=== PATIENT | female | born 1955 | race Caucasian/White ===

== ENCOUNTER 2021-04-17 01:33 | Day surgery (SDC) | payer MEDICARE, SELFPAY ==
[2021-04-09 14:40] VITALS: BMI 23.1
[2021-04-17 08:28] VITALS: BP 161/77; PULSE 84; RESP 16; TEMP 36.1; O2SAT 100; BMI 22.6
[2021-04-17] MEDS: LACTATED RINGERS 1,000 ML 150 ML IV CONT (08:44)
[2021-04-17 08:46] LABS: Glucose Point of Care 166 mg/dl (65-105)
--- NOTE | 2021-04-17 09:00 | P.CONGI_ITS ---
Assessment and Plan Assessment and plan (1) Encounter for screening colonoscopy: Code(s): Z12.11 - Encounter for screening for malignant neoplasm of colon Status: Acute Assessment and Plan: Patient presents for screening colonoscopy. Appears to be at average risk for colon polyps. GI Consult Note Consult date/time: 04/17/21 09:00 HPI: Maribeth Tavarez is a 65 year old female Presents for screening colonoscopy. Patient reports that she had an exam that was unremarkable 10 years ago. She reports that her current weight appetite bowel movements are normal. Patient denies abdominal pain. She has had no bleeding. Family history is noncontributory. She presents today for neoplasia screening. Review of Systems Review of Systems: All systems reviewed & are unremarkable except as noted in HPI and below PMFSH Social History Social History Smoking packs per day: 1 Smoking cigarettes per day: 20.0 Years smoked: 35 Smoking pack-years: 35.00 Smoking status: Former smoker Tobacco type: cigarettes Alcohol intake: current Substance use: never Substance use type: does not use Living arrangements: with family Spiritual care concerns: No Meds Home Medications and Allergies Home Medications Medication Instructions Recorded Confirmed Type alprazolam 0.25 mg PO BID PRN 04/09/21 04/17/21 History ascorbic acid (vitamin C) 1 g PO DAILY 04/09/21 04/17/21 History atorvastatin 20 mg PO DAILY 04/09/21 04/17/21 History calcium carb-mag ox-zinc gluc 1 tab-cap PO DAILY 04/09/21 04/17/21 History calcium carbonate [Calcium 600] 600 mg PO DAILY 04/09/21 04/17/21 History diclofenac sodium 50 mg PO DAILY 04/09/21 04/17/21 History metformin 500 mg PO DAILY 04/09/21 04/17/21 History multivitamin,kq-ncbm-pxhjofcm 1 tablet PO DAILY 04/09/21 04/17/21 History [Complete Multivitamin] potassium 99 mg PO DAILY 04/09/21 04/17/21 History vitamin B complex [Vitamin B-50 1 tablet PO 3XW 04/09/21 04/17/21 History Complex] Allergies Allergy/AdvReac Type Severity Reaction Status Date / Time No Known Allergies Allergy Verified 04/17/21 08:36 Vital Signs Vital Signs - 24 hr 04/17/21 08:28 Temperature 96.9 F L Pulse Rate 84 Respiratory Rate 16 Blood Pressure 161/77 H Pulse Oximetry 100 Exam Narrative: Physical exam reveals patient to be alert. Vital signs are stable. HEENT exam is unremarkable. Patient is anicteric. Lungs are clear to auscultation and percussion. Heart is without murmur or extra sounds. Abdomin al exam bowel sounds are present soft nontender with no organomegaly. Digital external rectal exam is normal.
--- NOTE | 2021-04-17 09:09 | WPDANESEPPF ---
Anes - Initial Pre Proc Eval Procedure: Operation Date: 04/17/21 09:30 Proposed Procedures p Screening Colonoscopy - Eron Mccarty MD Date/Time: 04/17/21 09:09 Surgeon: Eron Mccarty MD Pre Op Diagnosis: neoplasm screening Patient Data Age: 65 Gender: F Height: 1.5 m Weight: 50.8 kg Last Vital Signs Temp 96.9 F L 04/17/21 08:28 Pulse 84 04/17/21 08:28 Resp 16 04/17/21 08:28 BP 161/77 H 04/17/21 08:28 Pulse Ox 100 04/17/21 08:28 Allergies Allergy/AdvReac Type Severity Reaction Status Date / Time No Known Allergies Allergy Verified 04/17/21 08:36 Home Medications Medication Instructions Recorded Confirmed Type alprazolam 0.25 mg PO BID PRN 04/09/21 04/17/21 History ascorbic acid (vitamin C) 1 g PO DAILY 04/09/21 04/17/21 History atorvastatin 20 mg PO DAILY 04/09/21 04/17/21 History calcium carb-mag ox-zinc gluc 1 tab-cap PO DAILY 04/09/21 04/17/21 History calcium carbonate [Calcium 600] 600 mg PO DAILY 04/09/21 04/17/21 History diclofenac sodium 50 mg PO DAILY 04/09/21 04/17/21 History metformin 500 mg PO DAILY 04/09/21 04/17/21 History multivitamin,bj-babv-sdiwhkma 1 tablet PO DAILY 04/09/21 04/17/21 History [Complete Multivitamin] potassium 99 mg PO DAILY 04/09/21 04/17/21 History vitamin B complex [Vitamin B-50 1 tablet PO 3XW 04/09/21 04/17/21 History Complex] Laboratory Tests 04/17/21 08:40 POC Capillary Glucose 166 mg/dl H mg/dl (65-105) Patient hx anesthesia problems: none Family hx anesthesia problems: none PMFSH Past Medical History Medical History (Updated 04/17/21 @ 09:10 by Chan Womack MD) Diabetes Hyperlipidemia Social History Social History Smoking packs per day: 1 Smoking cigarettes per day: 20.0 Years smoked: 35 Smoking pack-years: 35.00 Smoking status: Former smoker Tobacco type: cigarettes Alcohol intake: current Substance use: never Substance use type: does not use Living arrangements: with family Spiritual care concerns: No Anes - Eval Final PreProcedure Day of Procedure 04/17/21 09:09 Patient weight: normal Heart: regular rate and rhythm Lungs: clear to auscultation Airway: Mallampati scale class II Neurological: alert and oriented Last oral intake: >/= 8 hours ASA classification: III Emergent: no Anesthesia type and monitoring: general GIVS and standard monitoring Informed Consent: The patient's anesthetic plan and its attendant risks and benefits were discussed with the patient/family/POA. Questions were solicited and answers provided to the satisfaction of the patient/family/POA.
[2021-04-17 09:39] VITALS: BP 97/60; PULSE 71; RESP 18; O2SAT 98
[2021-04-17 09:49] VITALS: BP 104/63; PULSE 70; RESP 16; O2SAT 98
[2021-04-17 09:59] VITALS: BP 126/79; PULSE 70; RESP 17; O2SAT 98
== END 2021-04-17 10:10 | disposition home or self-care (01) ==
PROVIDERS: PCP Internal Medicine; Visit Provider Internal Medicine Gastroenterology
PROC: 0DJD8ZZ Inspection of Lower Intestinal Tract, Via Natural or Artificial Opening Endoscopic (ICD-10-PCS; CPT 45378; principal; 2021-04-17 09:30)
DX: Z12.11 Encounter for screening for malignant neoplasm of colon (principal); K57.30 Diverticulosis of large intestine without perforation or abscess without bleeding; K64.8 Other hemorrhoids; E11.9 Type 2 diabetes mellitus without complications; E78.5 Hyperlipidemia, unspecified; Z87.891 Personal history of nicotine dependence
CPT/HCPCS: G0121; 82948; J2704; J7120

== ENCOUNTER 2023-10-05 10:11 | Outpatient (CLI) | payer MEDICARE, OTHER, SELFPAY ==
--- NOTE | 2023-10-05 10:25 | ECG_ITS ---
Measurements Intervals [place] Rate: 97 P: 44 OK: 167 QRS: 13 QRSD: 68 T: 32 QT: 322 QTc: 410 Interpretive Statements SINUS RHYTHM POSSIBLE LEFT ATRIAL ENLARGEMENT [-0.1mV P WAVE IN V1/V2] POSSIBLE ANTERIOR MYOCARDIAL INFARCTION [30 ms Q WAVE IN V3/V4, OR R < 0.2 mV IN V4], PROBABLY OLD ABNORMAL ECG NO PREVIOUS ECG AVAILABLE FOR COMPARISON Electronically Signed On 10-05-2023 11:54:41 [employer] by Rohan Shahid M.D.
[2023-10-05 10:56] LABS: Anion Gap 7 mmol/L (8-16); Blood Urea Nitrogen 17 mg/dL (7-17); Calcium 9.8 mg/dL (8.4-10.2); Carbon Dioxide 28 mmol/L (22-30); Chloride 99 mmol/L (98-107); Estimated Glomerular Filt Rate > 60; Glucose 265 mg/dL (65-110); Sodium 134 mmol/L (137-145)
== END 2023-10-05 10:12 | disposition home or self-care (01) ==
LOC: ANHSURGERY 10:15
PROVIDERS: Anesthesiology; PCP Nurse Practitioner Family; Visit Provider Orthopaedic Surgery
DX: E11.9 Type 2 diabetes mellitus without complications (principal); I10 Essential (primary) hypertension; Z01.818 Encounter for other preprocedural examination
CPT/HCPCS: 36415; 80048; 93005

== ENCOUNTER 2023-10-10 00:51 | Day surgery (SDC) | payer MEDICARE, OTHER, SELFPAY ==
--- NOTE | 2023-09-26 13:27 | PC.NURSE ---
Report to the Outpatient Waiting Room, entrance under the green pavilion located off [facility], at time __0800 on date _10/10/23 . Planned Procedure Time: ___1000 . Time changes happen often and if your time is changed the preop area will call you the afternoon before. - You and your visitor will be asked to self-screen and do not enter if you have any COVID symptoms. - A mask is optional within the hospital at this time. Patients may have clear liquids (water, carbonated beverages, clear teas, apple juice) until 3 hours prior to surgery(7 :00 AM ) with a maximum of 20 ounces. - No food from midnight until time of surgery - Infants may have breast milk until 4 hours before surgery, infant formula 6 hours prior to surgery. - Children will be allowed to drink immediately following surgery. If applicable, please bring a bottle or sippy cup to assist with drinking. Juice, water, soda, and popsicles are readily available. For infants on formula, please bring formula the day of surgery. Pacifiers are allowed. Take the following medications with a SIP of water the morning of surgery: __ALPRAZOLAM DO NOT STOP ANY OF YOUR OTHER PRESCRIPTION MEDICATIONS PRIOR TO SURGERY ?EXCEPT THE FOLLOWING Medications to discontinue per physician _ASPIRIN PER DR DAIGLE. HOLD DICLOFENAC 7 DAYS PRE OP PER DR DAIGLE.LAST DOSE 10/02/23. HOLD ALL VITAMINS AND SUPPLEMENTS 3 DAYS PRE OP .LAST DOSE 10/06/23 MAY TAKE TYLENOL IF NEEDED FOR PAIN Please no make-up, nail armenian, hairspray, perfume, deodorant, or body powder the day of surgery. No jewelry (including any body piercings) or valuables the day of surgery, leave them at home. Please take a shower or bath the night before, or the morning of, surgery with an antibacterial soap. Wear comfortable, loose fitting clothing. Children are encouraged to wear pajamas. - Jewelry must be removed prior to entering the operating room. Rings and piercings that are not removed may be cut off. - The hospital will not accept responsibility for valuables. - Please leave all valuables, including medications, at home the day of surgery. If you are going home after surgery, a licensed over the road driver must drive you home. - NO public transportation without another adult if you receive anesthesia. - We recommend that an adult stay with you for 24 hours following discharge. - We also recommend that you do not drive, make important decision, drink alcoholic beverages, or take any drugs that were not prescribed by your health care provider for at least 24 hours after your dischargE Follow any additional instructions given to you from your surgeon. If you or anyone in your household have experienced Covid symptoms in the past week, please notify your surgeon or the nurse liaison at the phone number below for possible testing. Telephone instructions given to __PATIENT and asked if any additional questions and then verbalized understanding. Patient advised to call surgeon office or pre surgery nurse liaison [phone] if any additional questions.
[2023-09-26 13:37] VITALS: BMI 23.8
--- NOTE | 2023-10-07 12:41 | PM.IMHP ---
H&P: HPI History of Present Illness Date/Time: 10/07/23 12:41 Chief Complaint: right index trigger finger Narrative: 68-year-old female presents today for right index A1 татьяна release. Patient has been having triggering in the right index finger that started last year. She had 1 cortisone injection in mid 2022. At that time that was her 2nd injection. She has had recurrence of the triggering in the index finger at this point was recommended that we proceed with surgery rather than continue with injections. Multiple injections can soften the tendon and cause tendon rupture. Patient wished to proceed with surgery and presents today for that. Review of Systems Review of Systems: All systems reviewed & are unremarkable except as noted in HPI and below PMFSH Past Medical History Medical History ) Acute UTI Anxiety disorder, unspecified Carotid bruit Diabetes Essential (primary) hypertension (09/09/16) Hyperlipidemia Murmur, cardiac Osteoporosis Surgical History Surgical History ) No pertinent past surgical history Family History Family History ) Mother No problems noted. Father No problems noted. Social History Social History ) Smoking packs per day: 1 Smoking cigarettes per day: 20.0 Years smoked: 35 Smoking pack-years: 35.00 Smoking status: Former smoker Tobacco type: cigarettes Smoking end date: 08/22/18 Alcohol intake: current Substance use: never Substance use type: does not use Do You Feel Safe in your Home?: No Lack of Transportation: No Lack of Food: Never True Current Housing: I Have Housing Concerned About Future Housing: No Difficulty Paying Gas/Electric Bills: No Difficulty Paying for Meds: No Currently Unemployed: No Difficulty w/ Childcare or Family Care: No Living arrangements: with family Spiritual care concerns: No Meds Home Medications and Allergies Home Medications Medication Instructions Recorded Confirmed Type ascorbic acid (vitamin C) 1,000 mg 1 g PO DAILY 04/09/21 09/26/23 History tablet calcium carbonate 600 mg calcium 600 mg PO DAILY 04/09/21 09/26/23 History (1,500 mg) tablet (Calcium) diclofenac sodium 50 mg 50 mg PO DAILY 04/09/21 09/26/23 History tablet,delayed release multivitamin,yx-pjpg-vspljwtz 1 tablet PO DAILY 04/09/21 09/26/23 History vitamin B complex 1 tablet PO 3XW 04/09/21 09/26/23 History losartan 25 mg tablet 25 mg PO DAILY 07/26/22 09/26/23 History lancets 33 gauge #100 ea 04/01/23 09/26/23 Rx atorvastatin 20 mg tablet 20 mg PO QHS #90 tabs 06/01/23 09/26/23 Rx blood sugar diagnostic (OneTouch #100 strips 07/29/23 09/26/23 Rx Ultra Test strips) aspirin 81 mg tablet,delayed 81 mg PO HS 09/26/23 09/26/23 History release (Adult Low Dose Aspirin) omega-3 fatty acids 1,000 mg PO DAILY 09/26/23 09/26/23 History alprazolam 0.25 mg tablet 0.25 mg PO BID PRN Anxiety #60 tabs 09/28/23 Rx metformin 500 mg tablet,extended 500 mg PO BID #180 tabs 09/30/23 Rx release 24 hr Allergies Allergy/AdvReac Type Severity Reaction Status Date / Time cefonicid [From Monocid] AdvReac Unknown Hives Verified 09/26/23 13:18 Robitet AdvReac Unknown Hives Uncoded 09/26/23 13:18 Exam Narrative: 5-year-old female alert pleasant. She has full range of motion of the right index finger. She has active triggering with range of motion. Moderate tenderness over the A1 татьяна. No numbness or tingling in the fingers. 2+ radial pulse. Resp: Auscultation: clear to auscultation bilaterally Cardio: Rate: regular rate Rhythm: regular rhythm Assessment and Plan Assessment and plan (1) Trigger finger: Code(s): M65.30 - Trigger finger, unspecified finger Status: Acute P
[2023-10-10] VITALS (8 sets, daily range): BP systolic 121–137; BP diastolic 58–74; PULSE 66–82; RESP 10–20; TEMP 36.2; O2SAT 96–100
[2023-10-10] MEDS: KETOROLAC 15 MG/ML VIAL (*BKC) IV PUSH (08:26)
[2023-10-10] MEDS: ACETAMINOPHEN 500 MG TABLET 1000 MG PO (08:27)
[2023-10-10 08:29] LABS: Glucose Point of Care 163 mg/dl (65-105)
--- NOTE | 2023-10-10 09:28 | WPDANESEPPF ---
Anes - Initial Pre Proc Eval Procedure: Operation Date: 10/10/23 10:00 Proposed Procedures p Right Index Finger A-1 Dayna Release - Daniel Ramon MD Date/Time: 10/10/23 09:28 Surgeon: Daniel Ramon MD Pre Op Diagnosis: Right Index Trigger Finger Patient Data Age: 68 Gender: F Height: 1.5 m Weight: 52.2 kg Last Vital Signs Temp 36.2 C L 10/10/23 08:02 Pulse 82 10/10/23 08:02 Resp 18 10/10/23 08:02 BP 137/74 10/10/23 08:02 Pulse Ox 100 10/10/23 08:02 O2 Del Method Room Air 10/10/23 08:02 Allergies Allergy/AdvReac Type Severity Reaction Status Date / Time cefonicid [From Monocid] AdvReac Unknown Hives Verified 09/26/23 13:18 Robitet AdvReac Unknown Hives Uncoded 09/26/23 13:18 Home Medications Medication Instructions Recorded Confirmed Type ascorbic acid (vitamin C) 1,000 mg 1 g PO DAILY 04/09/21 09/26/23 History tablet calcium carbonate 600 mg calcium 600 mg PO DAILY 04/09/21 09/26/23 History (1,500 mg) tablet (Calcium) diclofenac sodium 50 mg 50 mg PO DAILY 04/09/21 09/26/23 History tablet,delayed release multivitamin,dc-tdxo-xvdfhjoa 1 tablet PO DAILY 04/09/21 09/26/23 History vitamin B complex 1 tablet PO 3XW 04/09/21 09/26/23 History losartan 25 mg tablet 25 mg PO DAILY 07/26/22 09/26/23 History lancets 33 gauge #100 ea 04/01/23 09/26/23 Rx atorvastatin 20 mg tablet 20 mg PO QHS #90 tabs 06/01/23 09/26/23 Rx blood sugar diagnostic (OneTouch #100 strips 07/29/23 09/26/23 Rx Ultra Test strips) aspirin 81 mg tablet,delayed 81 mg PO HS 09/26/23 09/26/23 History release (Adult Low Dose Aspirin) omega-3 fatty acids 1,000 mg PO DAILY 09/26/23 09/26/23 History alprazolam 0.25 mg tablet 0.25 mg PO BID PRN Anxiety #60 tabs 09/28/23 Rx metformin 500 mg tablet,extended 500 mg PO BID #180 tabs 09/30/23 Rx release 24 hr Laboratory Tests 10/10/23 08:24 POC Capillary Glucose 163 H mg/dl (65-105) Patient hx anesthesia problems: none Family hx anesthesia problems: none Results Review: All pre-operative results and documents have been reviewed as part of the pre-operative evaluation. [facility] Past Medical History Medical History Acute UTI Anxiety disorder, unspecified Carotid bruit Diabetes Essential (primary) hypertension (09/09/16) Hyperlipidemia Murmur, cardiac Osteoporosis Surgical History Surgical History No pertinent past surgical history Family History Family History Mother No problems noted. Father No problems noted. Social History Social History Smoking packs per day: 1 Smoking cigarettes per day: 20.0 Years smoked: 35 Smoking pack-years: 35.00 Smoking status: Former smoker Tobacco type: cigarettes Smoking end date: 08/22/18 Alcohol intake: current Substance use: never Substance use type: does not use Do You Feel Safe in your Home?: No Lack of Transportation: No Lack of Food: Never True Current Housing: I Have Housing Concerned About Future Housing: No Difficulty Paying Gas/Electric Bills: No Difficulty Paying for Meds: No Currently Unemployed: No Difficulty w/ Childcare or Family Care: No Living arrangements: with family Spiritual care concerns: No Anes - Eval Final PreProcedure Day of Procedure 10/10/23 09:28 Patient weight: normal Heart: regular rate and rhythm Lungs: clear to auscultation Airway: Mallampati scale class II Neurological: alert and oriented Last oral intake: >/= 8 hours ASA classification: III Emergent: no Anesthetic plan: proceed Anesthesia type and monitoring: general GIVS and standard monitoring Results Review: All pre-operative results and documents have been reviewed as part of the pre-operative eval
--- NOTE | 2023-10-10 09:41 | WPDHPUPDATE1 ---
History and Physical Update Update Date/Time: 10/10/23 09:41 History and Physical has been reviewed, including an updated exam of the patient. There are NO changes in the patient's condition. Risks, benefits, and alternatives have been discussed and questions answered. Patient agrees to proceed with procedure.
[2023-10-10] MEDS: CLINDAMYCIN 900 MG/D5W 50 ML 900 MG/50 ML PIGGYBACK 50 MG IVPB (09:55)
[2023-10-10] MEDS: LIDOCAINE HCL 1% LOCAL INJ 20 ML VIAL INFILTRATE (10:21)
[2023-10-10] MEDS: LACTATED RINGERS 1,000 ML 30 ML IV CONT (10:40)
--- NOTE | 2023-10-10 10:44 | W.PM.PROC2 ---
Procedure Note - Detailed Date of Procedure 10/10/23 Pre-op Diagnosis Right Index Trigger Finger Post-op Diagnosis Same Procedure Performed A1 татьяна release right index finger flexor tendon sheath Surgeon Daniel Ramon MD Anesthesia General Description of Procedure Patient was brought to the operating room and general anesthesia was administered. The right hand was prepped draped usual fashion. Because of her history of allergy to cephalosporins she was given 900 mg of clindamycin IV preoperatively. Local anesthetic was administered 1 cc 1% lidocaine. Limb was exsanguinated tourniquet elevated to 200 mmHg. A 1 cm longitudinal incision was made over the A1 татьяна starting just distal to the mid palmar flexion crease of the index finger. Blunt dissection was carried down to the tendon sheath this was exposed. The distal edge of the A1 татьяна was clearly delineated and the A1 татьяна was released from the distal edge to the proximal edge completing the release. There was full motion of the finger without catching. Tourniquet was released after about 10 minutes. Hemostasis was achieved with several minutes of pressure wound irrigated and closed with 5 0 nylon suture a soft bulky dressing applied. There were no complications.
--- NOTE | 2023-10-10 11:05 | SUR.PHASEI ---
Dr. Ramon at bedside to assess patient's fingers on surgical hand d/t nursing concern of decreased capillary refill and being cold to touch. Dr. Ramon states fingers are just fine, dressing is not too tight. Surgical hand elevated on pillow. Patient able to wiggle fingers. Decreased sensation to middle finger.
[2023-10-10 11:22] LABS: Glucose Point of Care 126 mg/dl (65-105)
--- NOTE | 2023-10-10 11:49 | SUR.PHASEII ---
Pt cap refill is greater than 2 seconds. Fingers have a purple tint to. MD Ramon is aware and is not concern.
== END 2023-10-10 12:15 | disposition home or self-care (01) ==
PROVIDERS: PCP Nurse Practitioner Family; Visit Provider Orthopaedic Surgery
PROC: (CPT 26055; principal; 2023-10-10 10:00)
DX: M65.321 Trigger finger, right index finger (principal); E11.9 Type 2 diabetes mellitus without complications; I10 Essential (primary) hypertension; E78.5 Hyperlipidemia, unspecified; M81.0 Age-related osteoporosis without current pathological fracture; Z87.891 Personal history of nicotine dependence
CPT/HCPCS: 26055; 82948; A9270; J1100; J1885; J2405; J2704; J3010; J7120

== ENCOUNTER 2024-03-08 11:00 | Outpatient (RCR) | payer MEDICARE, OTHER, SELFPAY ==
--- NOTE | 2023-12-14 17:27 | PTOPEVAL1 ---
Assessment and note entered by Judy Coronado, PT Evaluation Information Assessment Status Evaluation Diagnosis right hip pain, low back pain unspec Therapy condition abnormal posture weakness Onset ~ 1 month Subjective Information Pain in right hip, hurts with first getting up and first few steps then getting moving improves. Pt reports right knee torn meniscus. Was doing steroid shots for both knees when was working every 3 months, but when was working it went to 6 months, and now has been 2-3 years now that hasn't . Has been bothering her the last 15 years. When back started hurting right knee started hurting more. Back hurts most in the morning some days and sometimes will get better through the day. Yesterday was bending over and picking up the baby so back pain was awful but today not as bad. Pt reports back pain has been about the last month . 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 Reported Pain Level Pain Score 5,3: Self Report Assessment PT Clinical Summary Pt presents with complaints of right hip and low back pain worst in the morning and with picking up grandchild. Pt evaluation demo's possible leg length discrepancy, abnormal alignment of pelvis and spine, strength and ROM deficits. Pt will benefit from therapy in order to address deficits, reduce pain, and improve independent function. Plan of Care Interventions Electrical Stimulation,Hot Pack/Cold Pack,Manual Therapy,Neuro Re-education,Patient/Caregiver Educati,Therapeutic Activities,Therapeutic Exercise,Self-Care/Home Management,Ultrasound PT Services Indicated Yes Treatment Frequency and 1-2x weekly x 12 visits Duration These treatments will address the objective and functional deficits as defined above. The patient will be advanced safely and appropriately in order for the patient to progress towards his/her prior level of function. Additional exercises will be introduced and as well as a comprehensive home exercise program upon discharge, if needed, ?to ensure carryover of functional gains achieved in the clinic. This treatment plan has been reviewed and agreement upon by the patient.
--- NOTE | 2024-03-01 16:32 | PTOPPROG ---
Assessment and note entered by Judy Coronado, PT Evaluation Information Assessment Status Progress Diagnosis right hip pain, low back pain unspec ICD-10 Condition Codes (PT) Pain in right hip M25.551 Onset ~ 1 month Subjective Information Does feel like therapy is helping. States feels 70 % improved. Some days are not as good. All depends on what you do the say before. Yesterday cleaned her bathrooms with bending, stooping , stretching. Hurt last night but wasn't a pain needing a pain pill and took a Tylenol and was a little stiff this morning going down the leg . Does walk 3 days out of 7. Walking is good, but by the end of the walk the back will be burning. Assessment PT Clinical Summary Pt has attended therapy consistently for low back and right leg pain. Since starting lumbar traction pt reports she has seen a great improvement in her pain. She appears very concerned with her knee alignment today and imaging. Encouraged patient to refocus her attention to her progression and functional/pain goals versus deficits. She cont to demo RLE length greater than LLE though she has her heel lifts in her left shoe. She demos greatly improved comfort with lumbar ROM testing and increased ROM. Slowly increasing lumbopelvic core strength. Pt will benefit from cont therapy on a reduced frequency to focus in on high level and independent strengthening and maintenance post therapy. Plan of Care Interventions Electrical Stimulation,Hot Pack/Cold Pack,Manual Therapy,Neuro Re-education,Patient/Caregiver Educati,Therapeutic Activities,Therapeutic Exercise,Self-Care/Home Management,Ultrasound PT Services Indicated Yes Treatment Frequency and 1-2x weekly x 12 visits Duration These treatments will address the objective and functional deficits as defined above. The patient will be advanced safely and appropriately in order for the patient to progress towards his/her prior level of function. Additional exercises will be introduced and as well as a comprehensive home exercise program upon discharge, if needed, ?to ensure carryover of functional gains achieved in the clinic. This treatment plan has been reviewed and agreement upon by the patient.
== END 2024-03-12 23:59 | disposition home or self-care (01) ==
LOC: ANHHIPT 11:00
PROVIDERS: PCP Nurse Practitioner Family; Visit Provider Physician Assistant Medical
DX: M25.551 Pain in right hip (principal); M54.50 Low back pain, unspecified
CPT/HCPCS: 97012; 97014; 97110; 97112; 97116; 97140; 97162; 97530; 97750; G0283

== ENCOUNTER 2024-04-12 11:00 | Outpatient (RCR) | payer MEDICARE, OTHER, SELFPAY ==
--- NOTE | 2024-03-14 11:57 | PTOPPROG ---
Assessment and note entered by Judy Coronado, PT Evaluation Information Assessment Status Progress Diagnosis right hip pain, low back pain unspec ICD-10 Condition Codes (PT) Pain in right hip M25.551 abnormal posture weakness Onset ~ 1 month Subjective Information Does feel like therapy is helping. States feels 70 % improved. Some days are not as good. All depends on what you do the say before. Yesterday cleaned her bathrooms with bending, stooping , stretching. Hurt last night but wasn't a pain needing a pain pill and took a Tylenol and was a little stiff this morning going down the leg . Does walk 3 days out of 7. Walking is good, but by the end of the walk the back will be burning. [ End ] Assessment PT Clinical Summary Pt has attended therapy consistently for low back and right leg pain. Since starting lumbar traction pt reports she has seen a great improvement in her pain. She appears very concerned with her knee alignment today and imaging. Encouraged patient to refocus her attention to her progression and functional/pain goals versus deficits. She cont to demo RLE length greater than LLE though she has her heel lifts in her left shoe. She demos greatly improved comfort with lumbar ROM testing and increased ROM. Slowly increasing lumbopelvic core strength. Pt will benefit from cont therapy on a reduced frequency to focus in on high level and independent strengthening and maintenance post therapy. Plan of Care Interventions Electrical Stimulation,Hot Pack/Cold Pack,Manual Therapy,Mechanical Traction,Neuro Re-education, Patient/Caregiver Educati,Therapeutic Activities, Therapeutic Exercise,Self-Care/Home Management, Ultrasound Other Interventions IAS PT Services Indicated Yes Treatment Frequency and 1xweekly x 6 visits Duration These treatments will address the objective and functional deficits as defined above. The patient will be advanced safely and appropriately in order for the patient to progress towards his/her prior level of function. Additional exercises will be introduced and as well as a comprehensive home exercise program upon discharge, if needed, ?to ensure carryover of functional gains achieved in the clinic. This treatment plan has been reviewed and agreement upon by the patient.
--- NOTE | 2024-04-12 16:54 | PTOPDC ---
Assessment and note entered by Judy Coronado, PT Evaluation Information Assessment Status Discharge Diagnosis right hip pain, low back pain unspec ICD-10 Condition Codes (PT) Pain in right hip M25.551 Onset ~ 1 month Subjective Information Pt reports was in the boat Tuesday, reports was really choppy . Tuesday and today patient has had increased pain. And has a lot of stress coming up. Reports thinking about it way too much and is making herself dizzy and weak. Pain continues to be the worst in the morning. Pt reports gets MRI on Tuesday. Is worry they are going to say there's nothing we can do, deal with it . Did get shots in the knees and in the buttock but still has pain in the back. Pt states thinks 70% improvement overall prior to recent flare up, but has not improved since last session Reported Pain Level Pain Score 6,3: Self Report Additional Pain Score Comments worst in the mornings but after getting up and moving around, exercising, improves. Assessment PT Clinical Summary Pt has attended therapy consistently for right sided hip/low back pain. She had presented with pelvic obliquities that improved with heel lift in left shoe. Traction was added to her plan of care to further improve her discomfort. She reports has been 70% improved overall with less intense discomfort down her right leg however pain continues. She has increased pain from a flare up being in her fishing boat on very agitated billings which likely irritated her lumbar spine from lack of stability. She will likely benefit from a lumbar bracing option in order to assist in stabilizing her spine when she is performing high level activities such as fishing and caring for her grandson. She is being referred back to her PCP to discuss additional options related to managing her pain to improve her functional abilities with less discomfort. thus we are discharging from therapy due to max benefit being met at this time. Plan of Care PT Services Indicated No
== END 2024-04-13 08:30 | disposition home or self-care (01) ==
LOC: ANHHIPT 11:00
PROVIDERS: PCP Physician Assistant Medical; Visit Provider Physician Assistant Medical
DX: M25.551 Pain in right hip (principal); M54.50 Low back pain, unspecified
CPT/HCPCS: 97012; 97110; 97112; 97750

== ENCOUNTER 2024-10-02 11:48 | Outpatient (CLI) | payer MEDICARE, OTHER, SELFPAY ==
--- NOTE | 2024-10-02 12:09 | ECG_ITS ---
Test Date: 2024-10-02 13:01:38 Measurements Intervals [place] Rate: 84 P: 45 OR: 165 QRS: 29 QRSD: 70 T: 20 QT: 331 QTc: 393 Interpretive Statements SINUS RHYTHM WITH SINUS ARRHYTHMIA POSSIBLE LEFT ATRIAL ENLARGEMENT CONSIDER INFERIOR INFARCT, AGE INDETERMINATE BASELINE ARTIFACT- I, II, III, AVR, AVL, AVF, V4-V6 ABNORMAL ECG No previous ECG available for comparison Electronically Signed On 10-02-2024 13:06:06 PATTERN DRUM MAKER by Abdifatah Lares D.O.
--- OUTSIDE RECORDS SUMMARY | 2024-10-02 13:06 | XMS_ITS | Encounter Summary ---
Author Organization [facility] Address [facility] [place] [address] Care Team Providers Care Elect Equip Maint Eng Name Role Phone Allen Florence MD Primary Care Provider [phone] Susie Loza PA-C Primary Care Provider [phone] Encounter Details Date Type Department Care Team (Late st Contact Info) Description 04/30/[address] [facility] Day Services [address] [place], [place] [id number] Maria Dolores Roe PA [address] [place], [place] [id number] Social History Tobacco Use Types Packs/Day Years Used Date Smoking Tobacco: Former Cigarettes Cigars Smokeless Tobacco: Never Comments:Stopped smoking in 2015 Alcohol Use Standard Drinks/Week Comments No 0 (1 standard drink = 0.6 oz pur e alcohol) AUDIT-C Answer Date Recorded Frequency of Alcohol Consumption Never 07/07/2019 Average Number of Drinks Not on file 019 Frequency of Binge Drinking Not on file 06/22 Comments No Sex and Gender Information Value Date Recorded Sex Assigned at Not on file Legal Sex Female 7:39 PM CDT Gender Identity Not on file Sexual Orientation Not on file COVID-19 Exposure Response Date Recorded In the last 10 days, have yo u been in contact with someone who was confirmed or suspected to have Coronavirus/COVID-19? No / Unsure 04/12/2022 12:32 PM CDT documented as of this encounter Functional Status * RETIRED Are you deaf or do you have serious difficulty hearing Answer Date of Assessment Author Status No 07/07/2019 3:03 PM CHLOE Activ e * 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 Answer Date of Assessment Author Status No 07/07/2019 3:03 PM CHLOE Activ e * Do you have serious difficulty walking or climbing stairs? Answer Date of Assessment Author Status No 07/07/2019 3:03 PM Iesha Milton RN Active * Do you have difficulty dressing or bathing? Answer Date of Assessment Author Status No 07/07/2019 3:03 PM Iesha Milton RN Active * Because of a physical, mental, or emotional condition, do you have difficulty doing errands alone such as visiting a doctor's office or shopping? Answer Date of Assessment Author Status No 07/07/2019 3:03 PM Iesha Milton RN Active documented as of this encounter Mental Status * Because of a physical, mental, or emotional condition, do you have serious difficulty concentrating, remembering, or making decisions? Answer Entry Date Author Status No 07/07/2019 3:03 PM Iesha Milton RN Active documented in this encounter Plan of Treatment Upcoming Encounters Date Type Department Care Team (Late st Contact Info) Description 11/21/2024 10:00 AM CDT Office Visit [facility] [phone] Vidya Schneider, TUFTING MACHINE OPERATOR SINGLE NEEDLE-C [address] [address] documented as of this encounter Visit Diagnoses Diagnosis Osteoporosis- Primary Osteoporosis, unspecified documented in this encounter Care Teams Elect Equip Maint Eng Relationship Specialty Start Date End Date Allen Florence MD [address] [place] [address] PCP - General INTERNAL MEDICINE 07/07/19 05/10/22 Susie Loza, PA-C [address] [place], [place] [address] [place] [address] PCP - General PHYSICIAN TOOL RENTAL TECHNICIAN 05/11/22 documented as of this encounter
--- OUTSIDE RECORDS SUMMARY | 2024-10-02 13:06 | XMS_ITS | Encounter Summary ---
Author Organization [facility] Address [facility] [place] [address] Care Team Providers Care Atomic Spectroscopist Name Role Phone Susie Loza PA-C Primary Care Provider [phone] Encounter Details Date Type Department Care Team (Late st Contact Info) Description 10/06/2022 Abstract [facility] [place] [address] Shanna Bailey MA Social History Tobacco Use Types Packs/Day Years Used Date Smoking Tobacco: Former Cigarettes Cigars Smokeless Tobacco: Never Comments:Stopped smoking in 2016 Alcohol Use Standard Drinks/Week Comments No 0 [...] suspected to have Coronavirus/COVID-19? No / Unsure 09/23/2022 2:21 PM CONSERVATION WORKER documented as of this encounter Functional Status * RETIRED Are you deaf or do you have serious difficulty hearing Answer Date of Assessment Author Status No 07/07/2019 3:03 PM CONSERVATION WORKER Activ e * 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 Answer Date of Assessment Author Status No 07/07/2019 3:03 PM CONSERVATION WORKER Activ e * Do you have serious [...] Description 11/21/2024 10:00 AM CDT [facility] [address] [place] [phone] Vidya Schneider NP-C [address] [address] documented as of this encounter Procedures Procedure Name Priority Date/Time Associated Diagnosis Comments CBC (OUTSIDE LAB) Routine 09/23/2022 COMPREHENSIVE METABOLIC PANEL Routine 09/23/2022 LIPID PANEL Routine 09/23/2022 THYROID STIM HORMONE TSH Routine 09/23/2022 documented in this encounter Results * CBC (OUTSIDE LAB) (09/23/2022) WBC 6.2 HGB 14.7 HCT 42.5 PLT 251 09/23/2022 us Default History Genericprovider LAB-OUTSIDE/ABST RACTED Final Result * THYROID STIM HORMONE, TSH (09/23/2022) TSH 1.89 09/23/2022 us Default History Genericprovider LABORATORY Final Result * COMPREHENSIVE METABOLIC PANEL (09/23/2022) SODIUM S/P/B 139 POTASSIUM S/P/B 4.6 CO2 24 CHLORIDE S/P/B 108 GLUCOSE 154 mg/dL CALCIUM S/P/B 9.8 BUN 21 CREATININE S/P/B 0.84 0.5 - 1.0 EGFR NON-AFR. AMER. 75 <=90 ALKALINE PHOSPHATASE S/P/B 84 ALT 20 AST 24 BILIRUBIN TOTAL S/P/B 0.4 ALBUMIN S/P/B 4.7 3.5 - 5.0 TOTAL PROTEIN S/P/B 7.5 GLOBULIN 2.8 09/23/2022 us Default History Genericprovider LABORATORY Final Result * LIPID PANEL (09/23/2022) CHOLESTEROL 172 HDL 51 TRIGLYCERIDES 115 NON HDL CHOLESTEROL 121 LDL (CALCULATED) 100 09/23/2022 us Default History Genericprovider LABORATORY Final Result documented in this encounter Visit Diagnoses Not on filedocumented in this encounter Care Teams Atomic Spectroscopist Relationship Specialty Start Date End Date Susie Loza PA-C [address] [place] [address] [address] [place] [address] PCP - General PHYSICIAN FRONT DESK AGENT 05/11/22 documented as of this encounter
--- OUTSIDE RECORDS SUMMARY | 2024-10-02 13:06 | XMS_ITS | Encounter Summary ---
Author Organization [facility] Address [facility] [place] [address] Care Team Providers Care Sales Compensation Analyst Name Role Phone Susie Loza PA-C Primary Care Provider [phone] Encounter Details Date Type Department Care Team (Late st Contact Info) Description 05/16/2023 Therapy Plan [facility] One Day Services [address] [place] [address] Maria Dolores Roe PA [address] [place], [place] [phone] Social History Tobacco Use Types Packs/Day Years Used Date Smoking Tobacco: Former Cigarettes Smokeless Tobacco: Never Comments:Stopped smoking in 2015 [...] on file Sexual Orientation Not on file documented as of this encounter Functional Status * RETIRED Are you deaf or do you have serious difficulty hearing Answer Date of Assessment Author Status No 07/07/2019 3:03 PM SPAGHETTI MACHINE OPERATOR Activ e * 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 Answer Date of Assessment Author Status No 07/07/2019 3:03 PM SPAGHETTI MACHINE OPERATOR Activ e * Do you have serious [...] Description 11/21/2024 10:00 AM CDT Office Visit [facility] [address] [place] [address] Vidya Schneider, PASTA PRESS OPERATOR-C [facility] [address] [place] [address] documented as of this encounter Visit Diagnoses Diagnosis Osteoporosis- Primary Osteoporosis, unspecified documented in this encounter Care Teams Sales Compensation Analyst Relationship Specialty Start Date End Date Susie Loza, PA-C [address] [place], [place] [address] [place] [address] PCP - General PHYSICIAN MAINFRAME PROGRAMMER ANALYST 05/11/22 documented as of this encounter
--- OUTSIDE RECORDS SUMMARY | 2024-10-02 13:06 | XMS_ITS | Encounter Summary ---
Author Organization [facility] Address [facility] [place] [address] Care Team Providers Care Recovery Rn Name Role Phone Allen Florence MD Primary Care Provider [phone] Susie Loza PA-C Primary Care Provider [phone] Encounter Details Date Type Department Care Team (Late st Contact Info) Description 05/07/2022 ElectraTherm Message Enc [facility] [address] Mychart, [facility] Provider Stress Test Results Social History Tobacco Use Types Packs/Day Years [...] Assessment Author Status No 07/07/2019 3:03 PM CARBURETOR SPECIALIST Activ e * 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 Answer Date of Assessment Author Status No 07/07/2019 3:03 PM CARBURETOR SPECIALIST Activ e * Do you have serious [...] Description 11/21/2024 10:00 AM CDT Office Visit [facility] [address] [place] [phone] Vidya Schneider, PLATFORM ARCHITECT-C [address] [address] documented as of this encounter Visit Diagnoses Not on filedocumented in this encounter Care Teams Recovery Rn Relationship Specialty Start Date End Date Allen Florence MD [address] [place] [address] PCP - General INTERNAL MEDICINE 07/07/19 05/10/22 Susie Loza, PA-C [address] [place], [place] [address] [place] [address] PCP - General PHYSICIAN ENGINEERING LABORATORY TECHNICIAN 05/11/22 documented as of this encounter
--- OUTSIDE RECORDS SUMMARY | 2024-10-02 13:07 | XMS_ITS | Encounter Summary ---
Author Organization [facility] Address [facility]6 [place] [address] Care Team Providers Care Hinging Machine Operator Name Role Phone Allen Florence MD Primary Care Provider [phone] Susie Loza PA-C Primary Care Provider [phone] Encounter Details Date Type Department Care Team (Latest Contact Info) Description 06/27/[address] [facility] Parmjit Melvin MD Social History Tobacco Use Types Packs/Day Years Used Date Smoking Tobacco: Never Assessed Comments Unknown Sex and Gender Information Value Date Recorded Sex Assigned at Not on file Legal Sex Female 7:39 PM CDT Gender Identity Not on file Sexual Orientation Not on file documented as of this encounter Plan of Treatment Upcoming Encounters Date Type Department Care Team (Late st Contact Info) Description 11/21/2024 10:00 AM CDT Office Visit [facility] [address] [phone] Vidya Schneider, ELEMENTARY ESL TEACHER-C [address] [address] documented as of this encounter Visit Diagnoses Not on filedocumented in this encounter Care Teams Hinging Machine Operator Relationship Specialty Start Date End Date Allen Florence MD [address] [place] [address] PCP - General INTERNAL MEDICINE 07/07/19 05/10/22 Susie Loza PA-C [address] [place] [address] [address] [place] [address] PCP - General PHYSICIAN STATE GAME PROTECTOR 05/11/22 documented as of this encounter
--- OUTSIDE RECORDS SUMMARY | 2024-10-02 13:07 | XMS_ITS | Encounter Summary ---
Author Organization [facility] Address [facility] [place] [address] Care Team Providers Care Clinical Trials Specialist Name Role Phone Susie Loza PA-C Primary Care Provider [phone] Encounter Details Date Type Department Care Team (Late st Contact Info) Description 10/28/2023 Abstract [facility] [phone] Shanna Bailey MA Social History Tobacco Use Types Packs/Day Years Used Date Smoking Tobacco: Former Cigarettes Smokeless Tobacco: Never Comments:Stopped smoking in 2016 [...] Assessment Author Status No 07/07/2019 3:03 PM POLISHING WHEEL SETTER Activ e * 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 Answer Date of Assessment Author Status No 07/07/2019 3:03 PM POLISHING WHEEL SETTER Activ e * Do you have serious difficulty walking or climbing stairs? Answer Date of Assessment Author Status No 07/07/2019 3:03 PM POLISHING WHEEL SETTER Iesha Patton RN Active * Do you have difficulty [...] Description 11/21/2024 10:00 AM CDT [facility] [address] [place] [phone] Vidya Schneider NP-C [address] [address] documented as of this encounter Procedures Procedure Name Priority Date/Time Associated Diagnosis Comments COMPREHENSIVE METABOLIC PANEL Routine 09/27/2023 LIPID PANEL Routine 09/27/2023 CBC, MANUAL DIFF Routine 09/27/2023 THYROID STIM HORMONE TSH Routine 09/27/2023 documented in this encounter Results * (ABNORMAL) COMPREHENSIVE METABOLIC PANEL (09/27/2023) Pathologist [facility] SODIUM S/P/B 139 GLUCOSE 195 mg/dL AST 22 BUN 19 CREATININE S/P/B 1.03(A) 0.5 - 1.0 CALCIUM S/P/B 9.8 POTASSIUM S/P/B 4.2 CHLORIDE S/P/B 0.82 ALT 25 GFR ESTIMATE 77 us Default History Genericprovider LABORATORY Edited Result - Final * LIPID PANEL (09/27/2023) CHOLESTEROL 172 TRIGLYCERIDES 159 HDL 60 LDL (CALCULATED) 86 NON HDL CHOLESTEROL 112 us Default History Genericprovider LABORATORY Edited Result - Final * CBC, MANUAL DIFF (09/27/2023) Pathologist [facility] WBC 9.6 HGB 15.8 HCT 46.1 PLT 257 us Default History Genericprovider LABORATORY Edited Result - Final * THYROID STIM HORMONE, TSH (09/27/2023) Pathologist [facility] TSH 2.32 us Default History Genericprovider LABORATORY Edited Result - Final documented in this encounter Visit Diagnoses Not on filedocumented in this encounter Care Teams Clinical Trials Specialist Relationship Specialty Start Date End Date Susie Loza PA-C [address] [place] [address] [address] [place] [address] PCP - General PHYSICIAN CLOUD ARCHITECT 05/11/22 documented as of this encounter
--- OUTSIDE RECORDS SUMMARY | 2024-10-02 13:07 | XMS_ITS | Encounter Summary ---
Author Organization [facility] Address [facility] [place] [address] Care Team Providers Care Facing Slitter Name Role Phone Allen Florence MD Primary Care Provider [phone] Susie Loza PA-C Primary Care Provider [phone] Encounter Details Date Type Department Care Team (Late st Contact Info) Description 01/20/2022 [employer]Runner Message Enc [facility] [address] Mychart, [facility] Provider CT calcium score results Social History Tobacco Use Types Packs/Day Years [...] suspected to have Coronavirus/COVID-19? No / Unsure 01/15/2022 2:46 PM CDT documented as of this encounter Functional Status * RETIRED Are you deaf or do you have serious difficulty hearing Answer Date of Assessment Author Status No 07/07/2019 3:03 PM CABLE TELEVISION LINE TECHNICIAN Activ e * 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 Answer Date of Assessment Author Status No 07/07/2019 3:03 PM CABLE TELEVISION LINE TECHNICIAN Activ e * Do you have serious [...] Description 11/21/2024 10:00 AM CDT Office Visit [facility] [address] [place] [phone] Vidya Schneider, JUNIOR MANUFACTURING ENGINEER-C [address] [address] documented as of this encounter Visit Diagnoses Not on filedocumented in this encounter Care Teams Facing Slitter Relationship Specialty Start Date End Date Allen Florence MD [address] [place] [address] PCP - General INTERNAL MEDICINE 07/07/19 05/10/22 Susie Loza, PA-C [address] [place], [place] [address] [place] [address] PCP - General PHYSICIAN PRESCHOOL SPECIAL EDUCATION TEACHER 05/11/22 documented as of this encounter
--- OUTSIDE RECORDS SUMMARY | 2024-10-02 13:07 | XMS_ITS | Clinical Summary ---
Author Organization [facility] Address [address] [place] [address] Care Team Providers Care 411 Directory Assistance Operator Name Role Phone Susie Loza PA-C Primary Care Provider [phone] Allergies No known active allergies Medications ALPRAZolam 0.25 MG tablet Take 1 tablet (0.25 mg total) by mouth 2 (two) times daily as needed for Anxiety. Active multivitamin tablet Take 1 tablet by mouth daily. Active calcium carbonate 1500 (600 Ca) MG tablet Take 1 tablet (1,500 mg total) by mouth daily. Active omega-3 fatty acid 1000 MG capsule Take 1 capsule (1,000 mg total) by mouth daily. Active cetirizine 10 MG tablet Take 1 tablet (10 mg total) by mouth daily. 30 tablet 07/10/2019 Active metFORMIN ER (GLUCOPHAGE-XR) 500 MG 24 hr tablet Take 1 tablet (500 mg total) by mouth daily. 04/19/2022 Active diclofenac EC (VOLTAREN) 50 MG tablet Take 1 tablet (50 mg total) by mouth 2 (two) times daily with meals. 04/07/2022 Active aspirin EC (ECOTRIN) 81 MG tablet Take 1 tablet (81 mg total) by mouth daily. 04/28/2022 Active vitamin C (ASCORBIC ACID) 1000 MG tablet Take 1 tablet (1,000 mg total) by mouth daily. Active losartan (COZAAR) 25 MG tablet TAKE 1 TABLET (25 MG TOTAL) BY MOUTH DAILY. 90 tablet 2 04/30/2024 Active rosuvastatin (CRESTOR) 20 MG tablet take 1 tablet by mouth nightly at bedtime 90 tablet 2 05/14/2024 Active Active Problems Problem Noted Date Diagnosed Date Bilateral carotid bruits 04/28/2022 Mixed hyperlipidemia 04/28/2022 Osteoporosis 04/04/2020 CAP (community acquired pneumonia) 07/07/2019 Resolved Problems Problem Noted Date Diagnosed Date Resolved Date Encounter for abdominal aort ic aneurysm (AAA) screening 04/28/2022 05/03/2022 Immunizations Name Administration Dates Next Due MODERNA COVID-19 (12+) MRNA, LNP-S, PF, 100 MCG/ 0.5 ML DOSE 10/16/2020,09/18/2020 Family History Medical History Relation Comments pneumonia Father Cancer Mother Breast Cancer Neg Hx Relation Status Comments Brother 1 Brother 2 Brother 3 Father Mother Social History Tobacco Use Types Packs/Day Years Used Date Smoking Tobacco: Former Cigarettes Smokeless Tobacco: Never Tobacco Cessation:Counseling Given: Not Answered Comments:Stopped smoking in 2015 Alcohol Use Standard [...] on file Sexual Orientation Not on file Last Filed Vital Signs Vital Sign Reading Time Taken Comments Blood Pressure 134/70 11/09/2023 11:28 AM CDT Pulse 102 11/09/2023 11:28 AM CDT Temperature 36.8 C (98.2 F) 08/03/2023 9:25 AM PMO LEAD Respiratory Rate 18 08/03/2023 9:25 AM PMO LEAD Oxygen Saturation 98% 08/03/2023 9:25 AM PMO LEAD Inhaled Oxygen Concentration - - Weight 53.5 kg (118 lb) 11/09/2023 11:28 AM CDT Height 149.9 cm (4' 11 ) 11/09/2023 11:28 AM CDT Body Mass Index 23.83 11/09/2023 11:28 AM CDT Plan of Treatment Upcoming Encounters Date Type Department Care Team (Late st Contact Info) Description 11/21/2024 10:00 AM CDT Office Visit [facility] [address] [place] [address] Vidya Schneider, REEL AND REWINDER OPERATORTonaC [employer] [address] [address] Health Maintenance Due Date Last Done Comments Colorectal Cancer Screening Colonoscopy (10 Years) 1953 Hepatitis C 1971 DTaP, Tdap and Td Vaccines (1 - Tdap) 1972 Zoster Vaccines (1 of 2) 2003 RSV Immunization or 60+ Years (1 - Risk 60-74 years 1-dose series) 2013 Annual Medicare Wellness Visit 2018 COVID-19 Vaccine ( season) 2024 10/16/2020, 09/18/2020 Influenza Adult (#1) 2024 05/19/2019, 06/02/2018, 08/24/2013, Additional history exists PHQ-2 (Physician [place]) 08/22/2024 Mammogram Screening 01/24/2026 01/25/2024, 11/02/2022, 10/14/2021, Additional history exists Pneumococcal Vaccine: 65+ Years Completed 10/16/2019, 10/10/2018 Dexa Scan (General) Completed 05/28/2024, 04/12/2022, 03/17/2020 Meningococcal B Vaccine Aged Out No l onger eligible based on patient's age to complete this topic Meningococcal Vaccine Aged Out No purnima juan eligible based on patient's age to complete this topic RSV Immunizations Under 20 Months Aged Out No longer eligible based on patient's age to complete this topic Medical Devices Implanted Type Area Spinning Machine Operator Device Identifier Shelf Expiration Date Model / Serial / Lot [place] Iol Implanted:Qty: 1 on 11/01/2022 by Chan Cannon MD at [facility] Right: Eye [id number] 07/14/2025 / [id number] / Procedures Procedure Name Priority Date/Time Associated Diagnosis Comments BONE DENSITY/DEXA Routine 05/28/2024 2:4 5 PM CDT Other primary ovarian failure MG SCREENING W BRADY CROW DIGI Routine 01/25/2024 2:46 PM CDT Encounter for screening mammogram for malignant neoplasm of breast from Last 3 Months or Most Recently Relevant to Health Maintenance Results * BONE DENSITY/DEXA (05/28/2024 2:45 PM CDT) Anatomical Region Laterality Modality Bone Bone Density 05/29/2024 8:50 AM CDT Impressions 05/29/2024 8:51 AM CDT IMPRESSION: WHO Classification: Osteoporosis RECOMMENDATIONS: All patients should ensure an adequate intake of dietary calcium and vitamin D. The NOF recommend adults under the age of 50 need 1000 mg of calcium and 400-800 IU of vitamin D daily. Effective therapy for the prevention and treatment of osteoporosis include bisphosphonates. Follow-up: People with diagnosed cases of osteoporosis or at high risk for fracture should have regular bone mineral density test. For patients eligible for Medicare, routine testing is allowed once every 2 years. Testing frequency can be increased to one year for patients who have rapidly progressing disease, those who are receiving or discontinuing medical therapy to restore bone mass, or have additional risk factors. Referred By: MARIA DOLORES ETIENNE Interpreted By: Golden Kay MD, 05/29/2024 8:50 AM Narrative 05/29/2024 8:51 AM CDT [facility] [address] [place] [address] EXAMINATION: BONE DENSITY/DEXA INDICATIONS: Other primary ovarian failure TECHNIQUE: DEXA bone mineral density evaluation was performed in the AP projection over the lumbar spine and both hips utilizing standard imaging techniques. ASSESSMENT: The BMD measured at the AP spine L1-L4 is 0.781 g/cm? with a T-score of -2.4. The BMD measured at the left femoral neck is 0.619 g/cm? with a T-score of -2.1. The BMD measured at the left hip is 0.695 g/cm? with a T-score of -2.0. The BMD measured at the right femoral neck is 0.532 g/cm? with a T-score of - 2.9. The BMD measured at the right hip is 0.621 g/cm? with a T-score of -2.6. FRAX 10-year fracture risk: Not reported because some T score is at or below -2.5 Procedure Note Golden Kay MD - 05/29/2024 [facility] [address] [place] [address] EXAMINATION: BONE DENSITY/DEXA INDICATIONS: Other primary ovarian failure TECHNIQUE: DEXA bone mineral density evaluation was performed in the APprojection over the lumbar spine and both hips utilizing standard imagingtechniques. ASSESSMENT: The BMD measured at the AP spine L1-L4 is 0.781 g/cm? with a T-score of-2.4. The BMD measured at the left femoral neck is 0.619 g/cm? with a T-score of-2.1. The BMD measured at the left hip is 0.695 g/cm? with a T-score of -2.0. The BMD measured at the right femoral neck is 0.532 g/cm? with a T-scoreof -2.9. The BMD measured at the right hip is 0.621 g/cm? with a T-score of -2.6. FRAX 10-year fracture risk: Not reported because some T score is at or below -2.5 IMPRESSION: WHO Classification: Osteoporosis RECOMMENDATIONS: All patients should ensure an adequate intake of dietary calcium andvitamin D. The NOF recommend adults under the age of 50 need 1000 mg ofcalcium and 400-800 IU of vitamin D daily. Effective therapy for theprevention and treatment of osteoporosis include bisphosphonates. Follow-up: People with diagnosed cases of osteoporosis or at high risk for fractureshould have regular bone mineral density test. For patients eligible forMedicare, routine testing is allowed once every 2 years. Testing frequencycan be increased to one year for patients who have rapidly progressingdisease, those who are receiving or discontinuing medical therapy torestore bone mass, or have additional risk factors. Referred By: MARIA DOLORES ETIENNE Interpreted By: Golden Kay MD, 05/29/2024 8:50 AM Maria Dolores MORENO DEXA Final Result * MG SCREENING W BRADY CROW DIGI (01/25/2024 2:46 PM CDT) Anatomical Region Laterality Modality Breast Bilateral Mammography 01/26/2024 4:24 PM CDT Impressions 01/26/2024 4:27 PM CDT ===== IMPRESSION: ===== 1. Stable mammographic appearance with no new findings to suggest malignancy in either breast. Assessment: ACR BI-RADS 2 - BENIGN FINDING(S) Recommendation: 1:Routine Screening Bilateral Comments: Ordered By: VICKIE BARRERA Interpreted By: Chanel Bella, 01/26/2024 4:24 PM Narrative 01/26/2024 4:27 PM CDT EXAMINATION: Digital bilateral screening mammogram with 3-D tomosynthesis EXAM DATE/TIME: 01/25/2024 2:32 PM REASON FOR EXAM: encounter for screening mammogram COMPARISON: 10/14/2021.. 11/02/2022. Technique: Digital screening mammography of both breasts was performed in addition to 3-D Tomosynthesis technique. This study was read with the assistance of a computer-aided detection system. Tissue density: The breast tissue is heterogeneously dense, which may obscure small masses. Findings: Benign calcifications. There is no new focal asymmetry, dominant mass lesion, area of skin thickening, or cluster of suspicious appearing calcifications in either breast to suggest malignancy. Vickie Barrera POOL TABLE MECHANIC MAMMO Final Resul t from Last 3 Months or Most Recently Relevant to Health Maintenance Insurance MEDICARE [facility] Advance Directives * Full Code (Latest Code Status on File) Date Activated Date Inactivated Comments 07/07/2019 2:21 PM 07/09/2019 2:39 PM Care Teams 411 Directory Assistance Operator Relationship Specialty Start Date End Date Susie Loza PA-C [address] [place] [address] [address] [place] [address] PCP - General PHYSICIAN RESEARCH & INSIGHTS EXECUTIVE 05/11/22
--- OUTSIDE RECORDS SUMMARY | 2024-10-02 13:07 | XMS_ITS | Encounter Summary ---
Author Organization [facility] Address [facility] [place] [address] Care Team Providers Care Hyster Driver Name Role Phone Allen Florence MD Primary Care Provider [phone] Susie Loza PA-C Primary Care Provider [phone] Reason for Referral * Medication (Routine) - Closed Specialty Diagnoses / Procedures Referred By Contac t Referred To Contact INFUSION THERAPY / [facility] Infusion Therapy Diagnoses Osteoporosis Procedures ZOLEDRONIC ACID 1 MG [facility] [address] [place] [address] Phone: tel: [facility] [address] [place] [address] Phone: tel: Referral ID Status Reason Start Date Expiration Date V isits Requested Visits Authorized [id number] Closed Specialty Services 01/23/2021 02/22/2022 1 1 Encounter Details Date Type Department Care Team (Late st Contact Info) Description 01/23/2021 Therapy Plan [facility] [address] [place] [address] Maria Dolores Roe PA [facility] [place] [address] Social History Tobacco Use Types Packs/Day Years [...] Assessment Author Status No 07/07/2019 3:03 PM CAFETERIA OR LUNCHROOM CHECKER Activ e * 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 Answer Date of Assessment Author Status No 07/07/2019 3:03 PM CAFETERIA OR LUNCHROOM CHECKER Activ e * Do you have serious [...] Description 11/21/2024 10:00 AM CDT [facility] [address] [place] [id number] Vidya Schneider, PRESSING MACHINE TENDER-C [facility] [address] [place] [address] Scheduled Referrals Name Type Priority Associated Diagnoses Orde r Schedule Ambulatory referral to Infusion Therapy Referral Routine Osteoporosis Ordered: 01/23/2021 documented as of this encounter Visit Diagnoses Diagnosis Osteoporosis- Primary Osteoporosis, unspecified documented in this encounter Care Teams Hyster Driver Relationship Specialty Start Date End Date Allen Florence MD [address] [place] [id number] PCP - General INTERNAL MEDICINE 07/07/19 05/10/22 Susie Loza PA-C [address] [place], [place] [address] [place] [address] PCP - General PHYSICIAN FITTINGS FINISHER 05/11/22 documented as of this encounter
--- OUTSIDE RECORDS SUMMARY | 2024-10-02 13:07 | XMS_ITS | Data Portability ---
Author Organization [place] [email or web address], Main Office Address [address] [place] [address] Care Team Providers Care Qc Lab Technician Name Role Phone MARGARITA WHITE Primary Care Provider MARGARITA WHITE Referring Provider NANCY THOMPSON Nutrition Intern Unavailable Assessment Encounter Date Assessment Date Assessment LastModified by Organization Details LastModified Time 12/27/2022 12/27/2022 HPI: Patient returns. She is here cortisone injection in right index татьяна. She shot in February of 2022. For trigger finger. Worked well up until couple of weeks ago. She gets triggering at night only at this point. None during the day. It does annoy her at times and she felt she wished to have another injection. She does not wish to discuss surgical release at this point. Physical exam: 67-year-old female very alert pleasant. She has full range of motion right index finger. Minimal soft triggering with full flexion. Mild tenderness over the A1 татьяна ChloraPrep was used on skin 5 mg Kenalog and 1 cc of 0.5% ropivacaine was injected into the right index finger A1 татьяна. Impression: 67-year-old female who has had recurrence of her right index trigger finger. I remind her that 2 shots or maximum, repeat injections can soften the tendon the cause tendon rupture. If it does recur I would recommend surgical release. She has had surgical release done other fingers in the past as well aware of it. She will call if she does not get satisfactory improvement of her symptoms. Not available 12/27/2022 14:45:42 08/10/2023 08/10/2023 HPI: Patient returns. Her right index trigger finger has recurred. She had a cortisone injection earlier this year which was her 2nd . Triggering has recurred in the last several months. It is painful and bothersome on a daily basis. She has had surgery on several other trigger fingers and at this point is ready to proceed with surgery. Physical exam: 68-year-old female alert pleasant. She has full extension of the right index finger. She has soft triggering with flexion. She has moderate tenderness over the A1 татьяна. Skin is all intact. No numbness or tingling in the fingers. 2+ radial pulse. Impression: Patient has had recurrence of her right index trigger finger. She has had 2 injections at this point is ready to proceed with surgery. Surgical procedure in the risks of nerve and vessel injury as well as infection were discussed. Again she has had surgery on other fingers in the past and has had excellent results. We will set up some surgery in the near future. Not available 08/10/2023 11:17:08 10/24/2023 10/24/2023 HPI: patient returns. She is 13 days out from her right index trigger finger release. She is doing very well. She is having a triggering in the finger and no other symptoms. Physical exam: patient's incision as well healed. She has full range of motion of the index finger without triggering. Impression: patient is doing well. Following trigger finger release right index finger. She will increase activities as tolerated well with your back as needed. Not available 10/24/2023 16:12:00 Plan of Treatment Reminders Order Date Submit Date Provider Last Modified By Organization Details Last Modified Time Details Appointments None recorded. Lab None recorded. Referral None recorded. Procedures injection/a spiration joint/bursa (PROC) - in office procedure, administere d by provider 2022 023 [email or web address] In-Office Order, Internal Use Only DO Not Attach Compendium DO Not Attach Compendium, Do Not Delete/merge, [id number] 14:36:52 Surgeries None recorded. Imaging XR, hand 2022 023 [email or web address] [facility] [place], [facility], [place], [address], 3 11:52:15 Medication Orders Kenalog 10 mg/mL suspension for injection 2022 023 [email or web address] [id number], [address] [facility], [place], [address], 3 17:31:37 ropivacaine (PF) 5 mg/mL (0.5 %) injection solution 2022 023 [email or web address] [id number], [address], [place], [address], 3 17:31:37 Patient TargetsNo targets recorded. Patient InstructionsNo instructions recorded. Reason for Referral None Reported. Results Created Date Observation Date Name Description Value Unit Range Abnormal Flag Note LastModifiedBy Organization Detail LastModifiedTime 03/17/20 22 XR, hand No observ ation record ed. [id number] [facility] [address], [place], [address], 10/20/2022 12:48:51 08/10/20 23 XR, hand No observ ation record ed. [facility] [address], [address], 08/10/2023 11:15:32 Result Notes None recorded. Problems Name Problem SNOMED Code Status Onset Date Resolution Date Notes Provider Name and Address Organization Details Recorded Time Trigger finger of right hand 0542680267106 9101 Active 2021 Not Available [facility] 3 12:46:18 Knee joint effusion 180482894 Active Not Available [facility] 3 12:46:18 Osteoarthr itis of knee 907101197 Active Not Available [facility] 3 12:46:18 Synovitis/ tenosynovi tis - hand 715737174 Active Not Available [facility] 3 12:46:19 Current tear of medial cartilage AND/OR meniscus of knee Active Not Available [facility] 3 12:46:19 Pain in right hand 6987157818514 09 Active 2021 Not Available [facility] 3 12:46:19 Osteoarthr itis 945435889 Active Not Available [facility] 3 12:46:19 Osteoarthr itis of left knee joint 6934249063502 09 Active 2022 Evelia Hill, FOREIGN STUDENT ADVISER null, [place] [facility] 3 11:12:27 Problem Notes None recorded. Procedures Surgical History None recorded. Imaging Results Imaging Date Name Status LastModified by Organiz ation Details LastModified Time 03/17/2022 XR, hand completed [id number] [facility] [address], [place], [address], 10/20/2022 12:48:51 08/10/2023 XR, hand completed [facility] [address], [place], [address], 08/10/2023 11:15:32 Procedure Notes None recorded. Medical Equipment None Reported. Allergies No known drug allergies Medications Name Sig Start Date Stop Date Status Note LastModified by Organization Details LastModified Time amoxicillin 500 mg capsule TAKE 1 CAPSULE BY MOUTH 3 TIMES A DAY UNTIL GONE 11/26 completed Not Available Not Available Not Available atorvastati n 40 mg tablet TAKE 1 TABLET BY MOUTH AT BEDTIME active Not Available Not Available No t Available prednisone 10 mg tablet TAKE 3 TABS DAILY FOR 3 DAYS THEN 2 TABS DAILY FOR 3 DAYS THEN 1 TAB DAILY FOR 3 DAYS TAKE WITH FOOD 12/03 completed Not Available Not Available Not Available atorvastati n 20 mg tablet TAKE 1 TABLET BY MOUTH EVERY DAY AT BEDTIME active Not Available Not Available No t Available azithromyci n 250 mg tablet TAKE 2 TABLETS BY MOUTH TODAY, THEN TAKE 1 TABLET DAILY FOR 4 DAYS DIRECTED active Not Available Not Available No t Available benzonatate 200 mg capsule TAKE 1 CAPSULE BY MOUTH EVERY DAY 3 TIMES A DAY NEEDED FOR COUGH 08/01 completed Not Available Not Available Not Available hydrocodone 5 mg-acetamin ophen 325 mg tablet TAKE 1 TABLET BY MOUTH EVERY 4 HOURS NEEDED FOR PAIN 10/23 completed Not Available Not Available Not Available promethazin e 6.25 mg-codeine 10 mg/5 mL syrup TAKE 5-10ML BY MOUTH EVERY 6 HOURS NEEDED 08/10 completed Not Available Not Available Not Available penicillin V potassium 500 mg tablet TAKE 1 TABLET BY MOUTH 4 TIMES A DAY UNTIL FINISHED 11/26 completed Not Available Not Available Not Available acetaminoph en 300 mg-codeine 30 mg tablet TAKE 1 TABLET BY MOUTH EVERY 3-4 HOURS NEEDED FOR PAIN 08/01 completed Not Available Not Available Not Available ciprofloxac in 500 mg tablet 08/01 completed Not Available Not Available Not Available amoxicillin 500 mg tablet TAKE 1 TABLET BY MOUTH 3 TIMES DAILY FOR 10 DAYS. active Not Available Not Available No t Available alprazolam 0.5 mg tablet TAKE 1/2 TABLET BY MOUTH TWICE A DAY NEEDED FOR ANXIETY 08/10 completed Not Available Not Available Not Available alprazolam 0.25 mg tablet TAKE 1 TABLET BY MOUTH TWICE A DAY NEEDED FOR ANXIETY active Not Available Not Available No t Available [employer] Ultra Test strips FOR DIABETES USE TO CHECK GLUCOSE ONCE DAILY active Not Available Not Available No t Available Kenalog 10 mg/mL suspension for injection in office 2022 active [facility]: [phone] Not Available Not Available Not Available benzonatate 100 mg capsule TAKE 1 CAPSULE ORALLY THREE TIMES A DAY NEEDED FOR COUGH 10/23 completed Not Available Not Available Not Available losartan 25 mg tablet TAKE 1 TABLET (25 MG TOTAL) BY MOUTH DAILY. active Not Available Not Available No t Available diclofenac sodium 75 mg tablet,chidi yed release 08/10 completed Not Available Not Available Not Available hydrocodone 5 mg-acetamin ophen 500 mg tablet 08/01 completed Not Available Not Available Not Available diclofenac sodium 50 mg tablet,chidi yed release active Not Available Not Available Not Available ibuprofen 600 mg tablet 08/01 completed Not Available Not Available Not Available methylpredn isolone 4 mg tablets in a dose pack PLEASE SEE ATTACHED FOR DETAILED DIRECTION S 10/23 completed Not Available Not Available Not Available cefdinir 300 mg capsule TAKE 1 CAPSULE BY MOUTH TWICE A DAY 11/26 completed Not Available Not Available Not Available metformin ER 500 mg tablet,exte nded release 24 hr TAKE 1 TABLET BY MOUTH DAILY active Not Available Not Available No t Available naproxen 500 mg tablet 08/01 completed Not Available Not Available Not Available amoxicillin 875 mg-potassiu m clavulanate 125 mg tablet TAKE 1 TABLET BY MOUTH TWICE A DAY FOR 10 DAYS 11/26 completed Not Available Not Available Not Available Ventolin HFA 90 mcg/actuati on aerosol inhaler 08/10 completed Not Available Not Available Not Available Pneumovax-2 3 25 mcg/0.5 mL injection syringe TO BE ADMINISTE RED BY PHARMACIS T FOR IMMUNIZAT ION 11/26 completed Not Available Not Available Not Available azithromyci n 500 mg tablet 08/10 completed Not Available Not Available Not Available magnesium 10/23 completed Not Available Not Available Not Available Vitamin C 2020 active Not Available Not Available Not Avai lable zinc 2020 active Not Available Not Available Not Avai lable Calcium 600 2020 active Not Available Not Available Not Avai lable Elk 3 2020 active Not Available Not Available Not Avai lable B50 Balanced 2020 active Not Available Not Available Not Avai lable lidocaine (PF) 10 mg/mL (1 %) injection solution In office injection administe red by the provider 03/17 completed [facility]: [phone]- [phone] Not Available Not Available Not Available lidocaine (PF) 5 mg/mL (0.5 %) injection solution In office injection administe red by the provider 04/07 completed Not Available Not Available Not Available Mucinex DM 60 mg-1,200 mg tablet,exte nded release 12 hr TAKE 1 TABLET BY MOUTH EVERY 12 HOURS NEEDED COUGH 08/01 completed Not Available Not Available Not Available Prevnar 13 (PF) 0.5 mL intramuscul ar syringe TO BE ADMINISTE RED BY [employer] T FOR IMMUNIZAT ION 08/10 completed Not Available Not Available Not Available ropivacaine (PF) 5 mg/mL (0.5 %) injection solution in office 2022 active [facility] [phone] Not Available Not Available Not Available Fluarix Quad 8230-8764 (PF) 60 mcg (15 mcg x 4)/0.5 mL IM syringe TO BE ADMINISTE RED BY PHARMACIS T FOR IMMUNIZAT ION 08/01 completed Not Available Not Available Not Available Flucelvax Quad (PF) 60 mcg (15 mcg x 4)/0.5 mL IM syringe TO BE ADMINISTE RED BY PHARMACIS T FOR IMMUNIZAT ION 08/01 completed Not Available Not Available Not Available OneTouch Ultra Blue Test Strip CHECK BLOOD SUGAR 1X/DAY active Not Available Not Available No t Available Flucelvax Quad (PF) 60 mcg (15 mcg x 4)/0.5 mL IM syringe TO BE ADMINISTE RED BY PHARMACIS T FOR IMMUNIZAT ION 08/01 completed Not Available Not Available Not Available OneTouch Ultra2 Meter USE TO TEST EVERY DAY active Not Available Not Available No t Available OneTouch Delica Plus Lancet 33 gauge USE TO CHECK GLUCOSE ONCE DAILY active Not Available Not Available No t Available Fluzone High-Dose (PF) 180 mcg/0.5 mL intramuscul ar syringe TO BE ADMINISTE RED BY PHARMACIS T FOR IMMUNIZAT ION 08/10 completed Not Available Not Available Not Available calcium 200 mg-vitamin D3 1.25 mcg-magnesi um 50 mg capsule Take by oral route. 2020 active Not Available Not Available Not Avai lable Vitals Date Recorded Body mass index (BMI) Body height Body height Body weight Provider Name and Address Organization Details Last Updated DateTime 10/20/2022 24 kg/m2 149.86 cm 149.86 cm 08541.49 g Not Available [facility] 10/20/2022 12:46:04 Date Recorded Body height Provider Name an d Address Organization Details Last Updated DateTime 12/27/2022 149.86 cm AKIRA Ashby [email or web address] 12/27/2022 13:57:55 Date Recorded Body height Body mass index (BMI) Body weight Provider Name and Address Organization Details Last Updated DateTime 08/10/2023 151.13 cm 22.8 kg/m2 23463.12 g AKIRA Ashby [email or web address] 08/10/2023 10:59:31 Date Recorded Body height Provider Name an d Address Organization Details Last Updated DateTime 10/24/2023 151.13 cm AKIRA Ashby [facility] 10/24/2023 15:48:25 Social History Question Answer Notes LastModified by Organizat ion Details LastModified Time Tobacco Smoking Status Never Smoker Not Available [facility] 10/20/2022 12:45:43 What Is Your Level Of Alcohol Consumption? Occasional [id number] Information not available 10/20/2022 Sex: Unknown Functional Status None recorded. Mental Status None recorded. Family History Relationship Description Onset Age of this Age Resolved Age Notes LastModified by Organization Details LastModified Time Mother Family history of malignant neoplasm [id number] Not available 10/20/2022 12:45:46 Mother Hypertensive disorder [id number] Not available 10/20/2022 12:45:46 Medical History Condition Response BLINDNESS N KIDNEY STONES N MRSA N CARPAL TUNNEL SYNDROME N OTHER # 1 N LUNG DISEASE/DISORDER N HISTORY OF DRUG ABUSE N RADIATION / CHEMOTHERAPY N COPD N Other # 2 N BLOOD DISEASES N SURGERY N SCHIZOPHRENIA N BOWEL PROBLEMS N DEPRESSION (INCLUDING POST ) N STROKE/TIA N ULCERS N BENIGN PROSTATIC HYPERPLASIA N OBESITY N GERD/NAUSEA N ANEURYSM N URINARY/BLADDER/KIDNEY PROBLEMS N CORONARY ARTERY DISEASE (CAD) N ADDICTION CONCERNS N USE OF BLOOD THINNERS N SKIN PROBLEMS N EMPHYSEMA N MUSCLE,JOINT OR BONE PROBLEMS N DVT N STOMACH ULCERS N BLOOD CLOTS Y USE OF NSAIDS N CONCUSSION OR SPINAL TRAUMA N NEUROPATHY N AIDS/HIV N FRACTURES N HYPERTENSION N ANXIETY DISORDER N Metal allergy N BLOOD TRANSFUSION N ANEMIA/BLOOD DISORDER N BIPOLAR DISORDER N BRONCHITIS N OSTEOARTHRITIS N TUBERCULOSIS N FOOT PROBLEM N HEART VALVE DISORDERS N ALLERGIES/HAYFEVER N INFECTIOUS DISEASE N HEART ARRHYTHMIA N INSOMNIA N RHEUMATOID ARTHRITIS N HIGH CHOLESTEROL / HYPERLIPIDEMIA N HYPERTHYROIDISM N NEUROLOGICAL PROBLEMS N EDEMA N CHRONIC PAIN SYNDROME N HYPOTHYROIDISM N CAROTID BLOCKAGE N BACK / NECK PROBLEMS N HAVE YOU BEEN HOSPITALIZED OR SEEN IN [facility] ER IN THE PAST YEAR ? N BURSITIS N HERNIATED DISC N DIALYSIS N FIBROMYALGIA N OSTEOPOROSIS N ARTHRITIS Y NO SIGNIFICANT PAST MEDICAL HISTORY N PERIPHERAL NEUROPATHY N DIABETES, TYPE Y HEARTBURN / REFLUX N HEPATITIS / LIVER DISEASE N GOUT N SLEEP DISORDER N ALZHEIMER'S DISEASE N HERPES N HEADACHES/MIGRAINES N SEIZURES/EPILEPSY N VASCULAR DISEASE N Blood Disorder N DIZZINESS N HEAD TRAUMA OR INJURY N HEART DISEASE/HEART PROBLEMS N MULTIPLE SCLEROSIS N CARDIAC ARRHYTHMIA N CANCER: SPECIFY N ANESTHESIA COMPLICATIONS N ATRIAL FIBRILLATION N AUTOIMMUNE DISEASE N Gynecological HistoryNo gynecological history recorded. Obstetrics History GPAL:G 0 P 0 0 0 0 Past Encounters Encounter ID Performer Location Encounter Start Date Encounter Closed Date Diagnosis/Indication Diagnosis SNOMED-CT Code Diagnosis ICD10 Code Diagnosis Note [id number] [facility] [address] [place] [address] 11/26/2020 00:00:00 11/26/2020 12:09:45 [id number] [facility] [address] [place] [address] 12/03/2020 00:00:00 12/03/2020 15:18:12 [id number] [facility] [address] [place] [address] 06/10/2021 00:00:00 06/10/2021 09:10:26 [id number] [facility] [address] [place] [address] 06/19/2021 00:00:00 06/19/2021 15:16:48 [id number] [facility] [address] [place] [address] 03/17/2022 00:00:00 03/17/2022 11:33:53 [id number] [facility] [address] [place] [address] 04/07/2022 00:00:00 04/07/2022 20:02:46 [id number] TIFFANIE Mccall [facility] [address] [place] [address] 12/27/2022 13:56:03 12/27/2022 14:49:13 Trigger finger of right hand [id number] M65.183 [id number] TIFFANIE Mccall [facility] [address] [place] [address] 08/10/2023 09:51:34 08/10/2023 11:52:15 Pain in right hand [id number] [id number] M79.437 [id number] TIFFANIE Mccall [facility] [place] [address] [place] [address] 10/24/2023 15:43:21 10/24/2023 17:37:34 Trigger finger of right hand [id number] M65.321 Health Concerns Section Related Observation LastModified by Organization Detai ls LastModified Time None Recorded Concern Status LastModified by Organization Details LastModified Time None Recorded Advance Directives Directive None Recorded Payers Encounter Date Sequence Insurance Name Policy Number Policy Resendez Covered Member ID Resendez Member ID Guarantor Name 12/27/2022 1 [place] Maribeth Tavarez [id number] Maribeth Tavarez 12/27/2022 2 [employer] (MEDICARE SUPPLEMENT) Maribeth Tavarez [id number] Maribeth Tavarez 08/10/2023 1 [place] Maribeth Tavarez [id number] Maribeth Tavarez 08/10/2023 2 [employer] [place] (MEDICARE SUPPLEMENT) Maribeth Tavarez [id number] Maribeth Tavarez 10/24/2023 1 [place] Maribeth Tavarez [id number] Maribeth Tavarez 10/24/2023 2 [employer] [place] (MEDICARE SUPPLEMENT) Maribeth Tavarez [id number] Maribeth Tavarez OBGyn Episode No OBEpisode recorded.
--- OUTSIDE RECORDS SUMMARY | 2024-10-02 13:07 | XMS_ITS | Encounter Summary ---
Author Organization [facility] Address [facility] [place] [address] Care Team Providers Care Building Stonecutter Name Role Phone Allen Florence MD Primary Care Provider [phone] Susie Loza PA-C Primary Care Provider [phone] Reason for Visit * Reason Onset Date Comments Follow Up Call 08/04/2019 Encounter Details Date Type Department Care Team (Late st Contact Info) Description 08/04/2019 Telephone [facility] Med/Surg [address] [place] [address] Murray Barrientos, SUNITHA Follow Up Call Social History Tobacco Use Types Packs/Day Years [...] Assessment Author Status No 07/07/2019 3:03 PM PIZZA MAKER Activ e * 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 Answer Date of Assessment Author Status No 07/07/2019 3:03 PM PIZZA MAKER Activ e * Do you have serious [...] Description 11/21/2024 10:00 AM CDT [facility] [address] [place] [phone] Vidya Schenider, PAGINATOR-C [address] [address] documented as of this encounter Visit Diagnoses Not on filedocumented in this encounter Care Teams Building Stonecutter Relationship Specialty Start Date End Date Allen Florence MD [address] [place] [id number] PCP - General INTERNAL MEDICINE 07/07/19 05/10/22 Susie Loza PA-C [address] [place], [place] [address] [place] [address] PCP - General PHYSICIAN INDUSTRIAL ILLUMINATING ENGINEER 05/11/22 documented as of this encounter
--- OUTSIDE RECORDS SUMMARY | 2024-10-02 13:07 | XMS_ITS | Encounter Summary ---
Author Organization [facility] Address [facility] [place] [address] Care Team Providers Care [employer] Internship Name Role Phone Allen Florence MD Primary Care Provider [phone] Susie Loza PA-C Primary Care Provider [phone] Encounter Details Date Type Department Care Team (Late st Contact Info) Description 07/11/2019 Hospital Follow-up Call [facility] Med/Surg [address] [place] [address] Corrie Gifford RN Social History Tobacco Use Types Packs/Day Years [...] Assessment Author Status No 07/07/2019 3:03 PM MERGERS AND ACQUISITIONS ASSOCIATE Activ e * 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 Answer Date of Assessment Author Status No 07/07/2019 3:03 PM MERGERS AND ACQUISITIONS ASSOCIATE Activ e * Do you have serious [...] Description 11/21/2024 10:00 AM CDT Office Visit [facility] [address] [place] [phone] Vidya Schneider AUTO WASHER-C [address] [address] documented as of this encounter Visit Diagnoses Not on filedocumented in this encounter Care Teams [employer] Intern[employer] Relationship Specialty Start Date End Date Allen Florence MD [address] [place] [address] PCP - General INTERNAL MEDICINE 07/07/19 05/10/22 Susie Loza PATonaC [address] [place], [place] [address] [place] [address] PCP - General PHYSICIAN SENIOR EDUCATION SPECIALIST 05/11/22 documented as of this encounter
[2024-10-02 13:21] LABS: Hematocrit 40.9 % (37.0-47.0); Hemoglobin 14.4 g/dL (12.0-15.0); Mean Corpuscular HGB Conc 35.2 g/dl (32-36); Mean Corpuscular Hemoglobin 32.7 pg (26-34); Platelet Count Result 248 k/mm3 (150-375); Red Cell Distribution Width 11.6 % (11.5-14.5); White Blood Count 8.5 K/mm3 (4.5-10.0)
[2024-10-02 13:31] LABS: Add Urine Microscopic? YES; Anion Gap 14 mmol/L (4-12); Appearance Urine Clear (Clear); Bacteria Urine None Seen /hpf; Bilirubin Urine Negative (Negative); Blood Urea Nitrogen 11 mg/dL (7-17); Blood Urine Negative (Negative); Calcium 10.3 mg/dL (8.4-10.2); Carbon Dioxide 26 mmol/L (22-30); Chloride 102 mmol/L (98-107); Color Urine Yellow (Yellow); Estimated Glomerular Filt Rate > 60; Glucose 127 mg/dL (65-110); Glucose Urine UA Negative (Negative); Ketones Urine Negative (Negative); Leukocyte Esterase Ur 1+ LEU/UL (Negative); Nitrate Urine Negative (Negative); Non Pathogenic Casts 0-2; Protein Urine Negative (Negative); RBC Urine 0-2 /hpf (0-2); Sodium 142 mmol/L (137-145); Specific Grav Ur 1.003 (1.001-1.035); Squamous Epithelial Cell Urine None Seen /hpf (Few); Urobilinogen Urine 0.2 mg/dL (<2.0); pH Urine 7.5 (5.0-9.0)
[2024-10-02 13:34] LABS: Hemoglobin A1C 6.9 % (<5.7)
[2024-10-02 13:35] LABS: Partial Thromboplastin Time 31.8 Seconds (22.3-36.8)
== END 2024-10-02 11:49 | disposition home or self-care (01) ==
LOC: ANHSURGERY 11:56
PROVIDERS: PCP Physician Assistant Medical; Visit Provider Neurological Surgery
DX: M48.061 Spinal stenosis, lumbar region without neurogenic claudication (principal); Z01.818 Encounter for other preprocedural examination; E11.9 Type 2 diabetes mellitus without complications; I10 Essential (primary) hypertension; I25.10 Atherosclerotic heart disease of native coronary artery without angina pectoris; E78.5 Hyperlipidemia, unspecified
CPT/HCPCS: 36415; 80048; 81001; 83036; 85027; 85610; 85730; 87086; 93005

== ENCOUNTER 2024-10-19 00:51 | Day surgery (SDC) | payer MEDICARE, OTHER, SELFPAY ==
[2024-10-02 12:21] VITALS: PULSE 96; RESP 16; TEMP 36.8; O2SAT 100; BMI 23.3
--- NOTE | 2024-10-02 12:37 | PC.NURSE ---
Report to the Outpatient Waiting Room, entrance under the green pavilion located off [facility], at time __08:00am on date _10/19/24 . Planned Procedure Time: _10:00am .? Time changes happen often and if your time is changed the preop area will call you the afternoon before. - You and your visitor will be asked to self-screen and do not enter if you have any COVID symptoms. Please call surgeon if you need to reschedule. - A mask is optional within the hospital at this time. Patients-Clear liquids for 3 hours prior to surgery up to 20 oz. till 0700am -No food from midnight until time of surgery and no smoking, or chewing tobacco (or any form of nicotine). No chewing gum, candy or mints. Take only the following medications with a SIP of water on the morning of surgery: Alprazolam as needed, Tramadol as needed, Cyclobenzaprine as needed DO NOT STOP ANY OF YOUR OTHER PRESCRIPTION MEDICATIONS PRIOR TO SURGERY EXCEPT THE FOLLOWING- HOLD Aspirin and NSAIDS for 7 days prior, date to take last dose is 10/11/24 Hold all vitamins and supplements for 3 days per anesthesiologist. Date to take last dose__10/15/24 Please no make-up, nail english, hairspray, perfume, deodorant, or body powder the day of surgery.? No jewelry (including any body piercings) or valuables the day of surgery, leave them at home.? Please take a shower or bath the night before, or the morning of, surgery with an antibacterial soap.? Wear comfortable, loose fitting clothing.? Children are encouraged to wear pajamas. - Jewelry must be removed prior to entering the operating room.? Rings and piercings that are not removed may be cut off. - The hospital will not accept responsibility for valuables.? - Please leave all valuables, including medications, at home the day of surgery. If you are going home after surgery, a licensed cdl dedicated truck driver must drive you home.? - NO public transportation without another adult if you receive anesthesia. - We recommend that an adult stay with you for 24 hours following discharge. - We also recommend that you do not drive, make important decision, drink alcoholic beverages, or take any drugs that were not prescribed by your health care provider for at least 24 hours after your discharge time. Follow any additional instructions given to you from your surgeon. Telephone instructions given to __Patient and asked if any additional questions and then verbalized understanding. Patient advised to call surgeon office or pre surgery nurse liaison [phone] if any additional questions.
[2024-10-19] VITALS (12 sets, daily range): BP systolic 135–176; BP diastolic 74–83; PULSE 82–105; RESP 14–16; TEMP 36.1–36.5; O2SAT 93–100; BMI 22.6
[2024-10-19] MEDS: LACTATED RINGERS 1,000 ML 30 ML IV CONT ×2 (07:50→12:03)
[2024-10-19 08:11] LABS: Glucose Point of Care 146 mg/dl (65-105)
--- NOTE | 2024-10-19 08:54 | WPDANESEPPF ---
Anes - Initial Pre Proc Eval Procedure: Operation Date: 10/19/24 09:30 Proposed Procedures p Right L3-4, Hemilaminectomy Medial Facetectomy - Coleman Blackburn MD Date/Time: 10/19/24 08:54 Surgeon: Coleman Blackburn MD Pre Op Diagnosis: Lumbar Stenosis Patient Data Age: 69 Gender: F Height: 1.47 m Weight: 49.2 kg Last Vital Signs Temp 36.1 C L 10/19/24 07:37 Pulse 95 10/19/24 07:37 Resp 16 10/19/24 07:37 BP 155/83 H 10/19/24 07:37 Pulse Ox 100 10/19/24 07:37 O2 Del Method Room Air 10/19/24 07:37 Allergies Allergy/AdvReac Type Severity Reaction Status Date / Time No Known Allergies Allergy Verified 10/19/24 07:37 Home Medications ?Medication ?Instructions ?Recorded ?Confirmed ?Type ascorbic acid (vitamin C) 1,000 mg 1 g PO DAILY 04/09/21 10/19/24 History tablet calcium carbonate (Calcium 600) 600 mg PO DAILY 04/09/21 10/19/24 History multivitamin,[id number]-tfpx-[id number] 1 tablet PO DAILY 04/09/21 10/19/24 History losartan 25 mg tablet 25 mg PO DAILY 07/26/22 10/19/24 History blood sugar diagnostic (OneTouch #100 strips 07/29/23 10/02/24 Rx Ultra Test strips) aspirin 81 mg tablet,delayed 81 mg PO HS 09/26/23 10/19/24 History release (Adult Low Dose Aspirin) omega-3 fatty acids 1,000 mg PO DAILY 09/26/23 10/19/24 History rosuvastatin 1 tablet PO DAILY 03/26/24 10/19/24 History vitamin B complex 1 tablet PO DAILY 03/26/24 10/19/24 History lancets 33 gauge #100 ea 05/21/24 10/02/24 Rx alendronate 70 mg tablet (Fosamax) 70 mg PO WEEKLY #12 tabs 06/01/24 10/19/24 Rx cholecalciferol (vitamin D3) 125 125 mcg PO DAILY 06/01/24 10/19/24 History mcg (5,000 unit) capsule magnesium 250 mg tablet 250 mg PO DAILY 06/01/24 10/19/24 History potassium 99 mg tablet 99 mg PO DAILY 06/01/24 10/19/24 History alprazolam 0.25 mg tablet 0.25 mg PO BID PRN Anxiety #60 tabs 07/31/24 10/19/24 Rx metformin 500 mg tablet,extended See Rx Instructions PO .COMPLEX 07/31/24 10/19/24 Rx release 24 hr #360 tabs tramadol 50 mg tablet 50 mg PO Q6-8H #30 tabs 10/02/24 10/19/24 Rx Laboratory Tests 10/19/24 08:07 POC Capillary Glucose 146 H mg/dl (65-105) Patient hx anesthesia problems: none Family hx anesthesia problems: none Results Review: All pre-operative results and documents have been reviewed as part of the pre-operative evaluation. [facility]MERLY [facility], [facility] Past Medical History Medical History (Updated 08/03/24 @ 14:06 by Coleman Blackburn MD) Lumbar stenosis Lumbar foraminal stenosis Murmur, cardiac Carotid bruit Acute UTI Osteoporosis Essential (primary) hypertension (09/09/16) Anxiety disorder, unspecified Hyperlipidemia Diabetes Surgical History Surgical History No pertinent past surgical history Family History Family History Mother Pancreatic cancer Father Sibling No problems noted. Social History Social History Smoking packs per day: 1 Smoking cigarettes per day: 20.0 Years smoked: 30 Smoking pack-years: 30.00 Smoking status: Former smoker Tobacco type: cigarettes Second hand tobacco smoke exposure: Yes Smoking end date: 08/22/18 Alcohol intake: current Drinks per week: 2 Alcohol use details: per week Substance use: never Substance use type: does not use Do You Feel Safe in your Home?: Yes Lack of Transportation: No Lack of Food: Never True Current Housing: I Have Housing Concerned About Future Housing: No Difficulty Paying Gas/Electric Bills: No Difficulty Paying for Meds: No Currently Unemployed: No Education: High School Diploma/GED Difficulty w/ Childcare or Family Care: No Living arrangements: with family Additional living arrangements comments: 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 Informed Consent: The patient's anesthetic plan and its attendant risks and benefits were discussed with the patient/family/POA. Questions were solicited and answers provided to the satisfaction of the patient/family/POA.
[2024-10-19] MEDS: fentaNYL CITRATE INJ (*CRX) 100 MCG/2 ML VIAL 25 MCG IV PUSH ×6 (09:20→14:17)
--- NOTE | 2024-10-19 10:43 | WPDHPUPDATE1 ---
History and Physical Update Update Date/Time: 10/19/24 10:43 History and Physical has been reviewed, including an updated exam of the patient. There are NO changes in the patient's condition. Risks, benefits, and alternatives have been discussed and questions answered. Patient agrees to proceed with procedure.
--- NOTE | 2024-10-19 10:44 | WPDHPUPDATE1 ---
History and Physical Update Update Date/Time: 10/19/24 10:44 History and Physical has been reviewed, including an updated exam of the patient. There are NO changes in the patient's condition. Risks, benefits, and alternatives have been discussed and questions answered. Patient agrees to proceed with procedure.
--- NOTE | 2024-10-19 10:44 | PM.IMHP ---
H&P: HPI History of Present Illness Date/Time: 10/19/24 10:44 Chief Complaint: Mrs. March presents with lumbar spinal stenosis at right L3/4. She has failed conservative management and is now here for an elective surgery. Her symptoms include a radiculopathy in the right L3/right L4 distribution. [facility] Past Medical History Medical History (Updated 08/03/24 @ 14:06 by Coleman Blackburn MD) Lumbar stenosis Lumbar foraminal stenosis Murmur, cardiac Carotid bruit Acute UTI Osteoporosis Essential (primary) hypertension (09/09/16) Anxiety disorder, unspecified Hyperlipidemia Diabetes Surgical History Surgical History No pertinent past surgical history Family History Family History Mother Pancreatic cancer Father Sibling No problems noted. Social History Social History Smoking packs per day: 1 Smoking cigarettes per day: 20.0 Years smoked: 30 Smoking pack-years: 30.00 Smoking status: Former smoker Tobacco type: cigarettes Second hand tobacco smoke exposure: Yes Smoking end date: 08/22/18 Alcohol intake: current Drinks per week: 2 Alcohol use details: per week Substance use: never Substance use type: does not use Do You Feel Safe in your Home?: Yes Lack of Transportation: No Lack of Food: Never True Current Housing: I Have Housing Concerned About Future Housing: No Difficulty Paying Gas/Electric Bills: No Difficulty Paying for Meds: No Currently Unemployed: No Education: High School Diploma/GED Difficulty w/ Childcare or Family Care: No Living arrangements: with family Additional living arrangements comments: 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 Gender identity (if verbalized by the patient): Female Spiritual care concerns: No Meds Home Medications and Allergies Home Medications ?Medication ?Instructions ?Recorded ?Confirmed ?Type ascorbic acid (vitamin C) 1,000 mg 1 g PO DAILY 04/09/21 10/19/24 History tablet calcium carbonate (Calcium 600) 600 mg PO DAILY 04/09/21 10/19/24 History multivitamin,dn-[id number]-jeciaqni 1 tablet PO DAILY 04/09/21 10/19/24 History losartan 25 mg tablet 25 mg PO DAILY 07/26/22 10/19/24 History blood sugar diagnostic (OneTouch #100 strips 07/29/23 10/02/24 Rx Ultra Test strips) aspirin 81 mg tablet,delayed 81 mg PO HS 09/26/23 10/19/24 History release (Adult Low Dose Aspirin) omega-3 fatty acids 1,000 mg PO DAILY 09/26/23 10/19/24 History rosuvastatin 1 tablet PO DAILY 03/26/24 10/19/24 History vitamin B complex 1 tablet PO DAILY 03/26/24 10/19/24 History lancets 33 gauge #100 ea 05/21/24 10/02/24 Rx alendronate 70 mg tablet (Fosamax) 70 mg PO WEEKLY #12 tabs 06/01/24 10/19/24 Rx cholecalciferol (vitamin D3) 125 125 mcg PO DAILY 06/01/24 10/19/24 History mcg (5,000 unit) capsule magnesium 250 mg tablet 250 mg PO DAILY 06/01/24 10/19/24 History potassium 99 mg tablet 99 mg PO DAILY 06/01/24 10/19/24 History alprazolam 0.25 mg tablet 0.25 mg PO BID PRN Anxiety #60 tabs 07/31/24 10/19/24 Rx metformin 500 mg tablet,extended See Rx Instructions PO .COMPLEX 07/31/24 10/19/24 Rx release 24 hr #360 tabs tramadol 50 mg tablet 50 mg PO Q6-8H #30 tabs 10/02/24 10/19/24 Rx Allergies Allergy/AdvReac Type Severity Reaction Status Date / Time No Known Allergies Allergy Verified 10/19/24 07:37 Vital Signs Vital Signs - 24 hr 10/19/24 07:37 Temperature 97 F L Pulse Rate 95 Respiratory Rate 16 Blood Pressure 155/83 H Pulse Oximetry 100 Oxygen Delivery Room Air Exam Narrative: awake alert no acute distress MAEW without focal deficit. Assessment and Plan Assessment and plan (1) Lumbar stenosis: Code(s): M48.061 - Spinal stenosis, lumbar region without neurogenic claudication Status: Acute Plan I offered Mrs. Tavarez a right L3-4 hemilaminectomy and medial facetectomy. I explained why we should not pursue her fusion considering she has osteoporosis. I explained the risks and benefits of the procedure which include but are not limited to non improvement of symptoms need for further surgery, bleeding, infection, numbness, tingling, weakness, loss of bowel bladder function, loss of sexual function, stroke, coma, . will likely get her scheduled for surgery over the next coming weeks. I have sent in tramadol to help with her pain control until we get her in for surgery. She understands and wishes to proceed
[2024-10-19] MEDS: ceFAZolin 2 GM/D5W 50 ML 2 GM/50 ML BAG IVPB (10:49)
[2024-10-19] MEDS: BUPIVACAINE/EPINEPHRINE 0.5% 50 ML VIAL 10 ML INFILTRATE (11:00)
[2024-10-19 12:13] LABS: Glucose Point of Care 116 mg/dl (65-105)
[2024-10-19] MEDS: oxyCODONE HCL (*CRX) 5 MG TAB IR PO (13:37)
--- NOTE | 2024-10-19 14:26 | W.PM.PROC2 ---
Procedure Note - Detailed Date of Procedure 10/19/24 Pre-op Diagnosis Lumbar Stenosis Post-op Diagnosis Same Procedure Performed Right L3/4 hemilaminectomy and medial facetectomy Use of operating microscope for microdissection Surgeon Coleman Blackburn MD Anesthesia General Indications Right L3-4 lateral recess stenosis Findings Significant right L3-4 lateral recess stenosis Description of Procedure Once the patient was intubated and positioned onto the Narciso frame I brought in fluoroscopy to identify the correct operative level. The skin was marked in the midline and incision was planned. Patient was then prepped and draped in the usual sterile fashion. Final time-out was performed indicating correct patient procedure site. Local anesthetic was injected. Midline incision was made and bipolar was used to remove the muscle from the midline spinous process and lamina at L3-4 on the right side. Douglas retractor was then placed and a curette was placed underneath the lamina L3. Lateral fluoroscopy confirmed the correct level. I then performed a hemilaminectomy and medial facetectomy you with use of a high-speed drill. I then used the upgoing curette to carefully lift up the ligament and removed this with Kerrison punches. At this point the nerve already appeared very well decompressed. I continued to use a Eustis 4 to feel out laterally. This was then further decompressed with Kerrison Grace to remove any additional bone spurs. The wound was then irrigated hemostasis of the obtained and the wound was closed in layers ending with Steri-Strips on the skin. Patient tolerated the procedure well were no complications during surgery. Estimated Blood Loss 50 Condition Stable Disposition PACU
== END 2024-10-19 14:42 | disposition home or self-care (01) ==
PROVIDERS: PCP Physician Assistant Medical; Visit Provider Neurological Surgery
PROC: (CPT 63005; principal; 2024-10-19 09:30)
DX: M48.061 Spinal stenosis, lumbar region without neurogenic claudication (principal); M81.0 Age-related osteoporosis without current pathological fracture; I10 Essential (primary) hypertension; E78.5 Hyperlipidemia, unspecified; E11.9 Type 2 diabetes mellitus without complications; F41.9 Anxiety disorder, unspecified; Z87.891 Personal history of nicotine dependence
CPT/HCPCS: 63047; 82948; 99199; A9270; J0690; J1100; J2003; J2250; J2405; J2704; J3010; J7120

== ENCOUNTER 2025-02-08 10:42 | Emergency (ER) | payer MEDICARE, OTHER, SELFPAY ==
[2025-02-08 10:48] VITALS: BP 155/79; PULSE 88; RESP 19; TEMP 36.4; O2SAT 100
--- NOTE | 2025-02-08 11:20 | P.CONNS_ITS ---
Assessment and Plan Assessment and plan (1) Radicular low back pain: Code(s): M54.10 - Radiculopathy, site unspecified Status: Acute Assessment and Plan: This is a 69-year-old female with history of right L3-4 hemilaminectomy for lateral recess stenosis presents with acute onset left-sided L5 radicular pain possibly due to a disc herniation. She does not have any evidence of cauda equina or saddle anesthesia. She has failed several medications and was asked to come to the emergency room for further pain management and to get an MRI scan. I spoke with the charge nurse and the emergency room physician and she is unable to get an MRI scan LS this is cauda equina. I have contacted my office to see if she could get an MRI scan as an outpatient which could be performed as early as tomorrow at 11:00 a.m.. I spoke to the emergency room physician to get her pain under control he IV pain medications steroids and Valium. If her pain is controlled she is able to go home she can get the outpatient MRI and I have contacted my office to let me know when the MRI results show on Tuesday. I am off this began my colleague Dr. Carolina is covering for him. Ultimately depending on what the MRI scan results show I would like to get her a urgent pain management referral for likely a steroid injection on the left side at L5- S1. Ultimately she may also need admission for pain controlled this weekend at which point she can get an MRI while she is admitted for further evaluation. I have spoken to the patient and the patient's as well as my emergency response officer as well as emergency room physician and the patient's nurse and all parties were understanding of the plan. Consult date: 02/08/25 Reason for consult: evaluation of low back pain HPI: Maribeth Tavarez is a 69 year old female who is well known to me who underwent a right L3-4 hemilaminectomy for lateral recess stenosis in September of this year. As of this past Tuesday she noted severe lows buttock and left-sided hip pain that radiated down the side of her leg. She noted that she got up this morning that morning and painted and did some dishes and just started she did not notice any significant inciting incident. She did not have any trauma she does have worsening pain in the above-described distribution and difficulty with weight- bearing on her left leg due to pain. She went to the emergency department at [facility] where she underwent a CT scan as well as x-rays of her left hip that did not show any acute findings. She was given medications and her pain was improved so she was discharged home her pain recurred and went to her final family practice doctor who increased her gabapentin and also put her on a higher dose prednisone taper. This did not significantly improve her pain she contacted my office who recommended she go to the emergency department of note the patient denies any numbness tingling weakness in her lower extremities. She denies any saddle anesthesia she denies any loss of bowel bladder function or urinary retention. She just notes that it is very difficult to weight bear on her left leg. She notes that it is better when she lies down with her legs elevated with worsened when she is moving. I saw the patient upon arrival and spoke to the charge nurse as well as the emergency room physician. I was informed that because she does not have cauda equina we cannot get an MRI scan acutely. I spoken to my emergency response officer who contacted several MRI facilities and was able to get her scheduled as an outpatient for an MRI tomorrow around 11:00 a.m. in the morning. I spoke to the emergency room physician to discuss treatment options. Review of Systems Review of Systems: The pain it occurs down the back and side of her left leg. [facility] Past Medical History Medical History (Updated 01/06/25 @ 16:42 by Maria Dolores Roe PA-C) Aortic ectasia, thoracic Pulmonary nodule Former smoker Lumbar stenosis Lumbar foraminal stenosis Murmur, cardiac Carotid bruit Acute UTI Osteoporosis Essential (primary) hypertension (09/09/16) Anxiety disorder, unspecified Hyperlipidemia Diabetes Surgical History Surgical History (Updated 11/09/24 @ 13:31 by Mahnaz Aguilar CMA) History of laminectomy No pertinent past surgical history Family History Family History Mother Pancreatic cancer Father Sibling No problems noted. Social History Social History Smoking packs per day: 1 Smoking cigarettes per day: 20.0 Years smoked: 30 Smoking pack-years: 30.00 Smoking status: Former smoker Tobacco type: cigarettes Second hand tobacco smoke exposure: Yes Smoking end date: 08/22/18 Alcohol intake: current Drinks per week: 2 Alcohol use details: per week Substance use: never Substance use type: does not use Do You Feel Safe in your Home?: Yes Lack of Transportation: No Lack of Food: Never True Current Housing: I Have Housing Concerned About Future Housing: No Difficulty Paying Gas/Electric Bills: No Difficulty Paying for Meds: No Currently Unemployed: No Education: High School Diploma/GED Difficulty w/ Childcare or Family Care: No Living arrangements: with family Additional living arrangements comments: 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 Gender identity (if verbalized by the patient): Female Spiritual care concerns: No Meds Home Medications and Allergies Home Medications ?Medication ?Instructions ?Recorded ?Confirmed ?Type ascorbic acid (vitamin C) 1,000 mg 1 g PO DAILY 04/09/21 01/01/25 History tablet calcium carbonate (Calcium 600) 600 mg PO DAILY 04/09/21 01/01/25 History multivitamin,[id number]-[id number] 1 tablet PO DAILY 04/09/21 01/01/25 History losartan 25 mg tablet 25 mg PO DAILY 07/26/22 01/01/25 History blood sugar diagnostic (OneTouch #100 strips 07/29/23 01/01/25 Rx Ultra Test strips) aspirin 81 mg tablet,delayed 81 mg PO HS 09/26/23 01/01/25 History release (Adult Low Dose Aspirin) omega-3 fatty acids 1,000 mg PO DAILY 09/26/23 01/01/25 History rosuvastatin 1 tablet PO DAILY 03/26/24 01/01/25 History vitamin B complex 1 tablet PO DAILY 03/26/24 01/01/25 History lancets 33 gauge #100 ea 05/21/24 01/01/25 Rx cholecalciferol (vitamin D3) 125 125 mcg PO DAILY 06/01/24 01/01/25 History mcg (5,000 unit) capsule magnesium 250 mg tablet 250 mg PO DAILY 06/01/24 01/01/25 History potassium 99 mg tablet 99 mg PO DAILY 06/01/24 01/01/25 History sennosides 8.6 mg tablet (senna) 8.6 mg PO BID PRN constipation #30 10/19/24 01/01/25 Rx tabs alendronate 70 mg tablet (Fosamax) 70 mg PO WEEKLY #12 tabs 11/19/24 01/01/25 Rx rosuvastatin 20 mg tablet mg PO 12/26/24 01/01/25 History metformin 500 mg tablet,extended 1,000 mg (2 x 500 mg) PO BID #360 01/01/25 01/01/25 Rx release 24 hr tabs gabapentin 300 mg capsule See Rx Instructions .Route 01/18/25 Rx .COMPLEX #90 caps amoxicillin 875 mg-potassium 1 tablet PO BID #20 tabs 02/01/25 Rx clavulanate 125 mg tablet alprazolam 0.25 mg tablet 0.25 mg PO BID PRN Anxiety #60 tabs 02/04/25 Rx oxycodone 5 mg tablet 5 mg PO Q8H PRN pain #21 tabs 02/06/25 02/06/25 Rx prednisone 10 mg tablet See Rx Instructions PO DIRECTED 02/06/25 Rx #18 tabs Allergies Allergy/AdvReac Type Severity Reaction Status Date / Time No Known Allergies Allergy Verified 01/01/25 11:08 Vital Signs Vital Signs - 24 hr 02/08/25 10:48 Temperature 97.5 F L Pulse Rate 88 Respiratory Rate 19 Blood Pressure 155/79 H Pulse Oximetry 100 Exam Narrative: She is awake alert she is in moderate distress. She moves her bilateral lower extremities 5/5 strength including the iliopsoas, quadriceps, hamstrings, plantar flexors, dorsiflexors, EHL. She has symmetric reflexes bilaterally. She has no clonus. She does have pain limited motion especially proximally.
[2025-02-08] MEDS: MORPHINE SULFATE (*CRX) 4 MG/ML INJ 2 MG IV PUSH (11:29)
[2025-02-08] MEDS: dexAMETHasone SOD PHOS INJ 10 MG/ML 1 ML VIAL IV PUSH (11:29)
[2025-02-08] MEDS: diazePAM INJ (*CRX) 10 MG/2 ML SYRINGE 2.5 MG IV PUSH (11:30)
[2025-02-08 11:46] LABS: Basophils Percent Auto 0.3 % (0.2-1.2); Eosinophils Percent Auto 0.3 % (0-4.4); Hematocrit 42.8 % (37.0-47.0); Hemoglobin 15.2 g/dL (12.0-15.0); Immature Granulocyte Absolute 0.11 K/mm3 (0.00-0.031); Immature Granulocyte Percent A 0.9 % (0-0.5); Lymphocytes Absolute Auto 0.96 K/mm3 (0.9-3.2); Lymphocytes Percent Auto 8.2 % (18.3-44.2); Mean Corpuscular HGB Conc 35.5 g/dl (32-36); Mean Corpuscular Volume 92.8 fl (80-100); Mean Platelet Volume 10.9 fl (7.4-10.4); Monocytes Absolute Auto 0.4 K/mm3 (0.1-0.6); Monocytes Percent Auto 3.1 % (2.6-8.5); Neutrophils Absolute Auto 10.2 K/mm3 (1.3-6.7); Neutrophils Percent Auto 87.2 % (45.5-73.1); Platelet Count Result 291 k/mm3 (150-375); Red Blood Count 4.61 M/mm3 (4.2-5.4); White Blood Count 11.7 K/mm3 (4.5-10.0)
[2025-02-08 11:54] LABS: Alanine Aminotransferase 36 U/L (6-35); Albumin Level 5.1 g/dL (3.5-5.1); Alkaline Phosphatase 88 U/L (38-126); Anion Gap 14 mmol/L (4-12); Aspartate Amino Transferase 31 U/L (14-36); Bilirubin,Total 0.5 mg/dL (0.2-1.3); Blood Urea Nitrogen 26 mg/dL (7-17); Calcium 10.7 mg/dL (8.4-10.2); Carbon Dioxide 20 mmol/L (22-30); Chloride 102 mmol/L (98-107); Estimated Glomerular Filt Rate > 60; Glucose 245 mg/dL (65-110); Potassium 4.4 mmol/L (3.4-5.0); Sodium 136 mmol/L (137-145); Total Protein 8.6 g/dL (6.3-8.2)
--- NOTE | 2025-02-08 12:51 | ED_ITS ---
HPI - Extremity Injury (Lower) General Chief Complaint: Extremity Injury, Lower Stated Complaint: leg pain, sent by PCP Time Seen by Provider: 02/08/25 11:06 History of Present Illness HPI Narrative: Patient presenting here with severe pain going from her left lower back down her his down her leg, had already been seen at outside hospital, called her neurosurgeon who had operated on her right side months ago who recommended she come in to our hospital for further evaluation. She already had a CT done at outside hospital recently without acute abnormality. Related Data Home Medications ?Medication ?Instructions ?Recorded ?Confirmed ?Last Taken ?Type ascorbic acid (vitamin C) 1,000 mg 1 g PO DAILY 04/09/21 01/01/25 10/16/24 History tablet calcium carbonate (Calcium 600) 600 mg PO DAILY 04/09/21 01/01/25 10/16/24 History multivitamin,[id number] 1 tablet PO DAILY 04/09/21 01/01/25 10/18/24 History losartan 25 mg tablet 25 mg PO DAILY 07/26/22 01/01/25 10/18/24 History aspirin 81 mg tablet,delayed 81 mg PO HS 09/26/23 01/01/25 10/12/24 History release (Adult Low Dose Aspirin) omega-3 fatty acids 1,000 mg PO DAILY 09/26/23 01/01/25 10/16/24 History rosuvastatin 1 tablet PO DAILY 03/26/24 01/01/25 10/18/24 History vitamin B complex 1 tablet PO DAILY 03/26/24 01/01/25 10/16/24 History cholecalciferol (vitamin D3) 125 125 mcg PO DAILY 06/01/24 01/01/25 10/16/24 History mcg (5,000 unit) capsule magnesium 250 mg tablet 250 mg PO DAILY 06/01/24 01/01/25 10/16/24 History potassium 99 mg tablet 99 mg PO DAILY 06/01/24 01/01/25 10/16/24 History rosuvastatin 20 mg tablet mg PO 12/26/24 01/01/25 Unknown History Allergies Allergy/AdvReac Type Severity Reaction Status Date / Time No Known Allergies Allergy Verified 01/01/25 11:08 [facility] Past Medical History Medical History (Updated 02/08/25 @ 12:29 by Anabella Hendrickson MD) Aortic ectasia, thoracic Pulmonary nodule Former smoker Lumbar stenosis Lumbar foraminal stenosis Murmur, cardiac Carotid bruit Acute UTI Osteoporosis Essential (primary) hypertension (09/09/16) Anxiety disorder, unspecified Hyperlipidemia Diabetes Surgical History Surgical History (Updated 11/09/24 @ 13:31 by Mahnaz Aguilar CMA) History of laminectomy No pertinent past surgical history Family History Family History Mother Pancreatic cancer Father Sibling No problems noted. Social History Social History Smoking packs per day: 1 Smoking cigarettes per day: 20.0 Years smoked: 30 Smoking pack-years: 30.00 Smoking status: Former smoker Tobacco type: cigarettes Second hand tobacco smoke exposure: Yes Smoking end date: 08/22/18 Alcohol intake: current Drinks per week: 2 Alcohol use details: per week Substance use: never Substance use type: does not use Do You Feel Safe in your Home?: Yes Lack of Transportation: No Lack of Food: Never True Current Housing: I Have Housing Concerned About Future Housing: No Difficulty Paying Gas/Electric Bills: No Difficulty Paying for Meds: No Currently Unemployed: No Education: High School Diploma/GED Difficulty w/ Childcare or Family Care: No Living arrangements: with family Additional living arrangements comments: 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 EYES: EOMI, conjunctiva normal ENT: Hearing grossly intact LUNGS: Nonlabored breathing. HEART: [Regular rate and rhythm], equal bilateral DP pulse ABD: [Soft], [nontender to palpation] EXT: Normal range of motion; some tenderness to palpation to the left lower back/hip SKIN: [No rashes or lesions.] NEURO: [Alert and oriented x 3. No gross focal sensory or strength deficits.] PSYCH: Normal affect Course Vital Signs Vital signs: Vital Signs Temperature 97.5 F L 02/08/25 10:48 Pulse Rate 88 02/08/25 10:48 Respiratory Rate 19 02/08/25 10:48 Blood Pressure 155/79 H 02/08/25 10:48 Pulse Oximetry 100 02/08/25 10:48 Temperature 97.5 F L 02/08/25 10:48 Pulse Rate 88 02/08/25 10:48 Respiratory Rate 19 02/08/25 10:48 Blood Pressure 155/79 H 02/08/25 10:48 Pulse Oximetry 100 02/08/25 10:48 MDM - Extremity Injury (Lower) MDM Narrative Medical decision making narrative: ED COURSE AND MEDICAL DECISION MAKIN-year-old female with acute back pain. Normal motor and sensory exam. No evidence of acute cord compression, osteomyelitis/discitis or cauda equina without saddle anesthesia, urinary retention/incontinence, numbness/tingling in lower extremities, fever, history of IV drug use, cancer or immunosuppression. Doubt AAA or aortic dissection without severe pain/discomfort or any neurovascular deficits. Recently at outside hospital with negative CT, her neurosurgeon is here at bedside, initially discussed potential MRI, they have arranged for outpatient MRI in the morning and feel if her pain can be controlled, she can be discharged. Morphine 2 mg and Valium 2.5 mg IV given for symptomatic relief. Will reevaluate the need for further investigations after the medications. On reevaluation, the symptoms are improved. Patient is able to rest more comfortably. She states she was having muscle spasm prior to this but the Valium seems to have stopped that. She has tolerated p.r.n. Xanax in the past very well so I do feel safe sending her home with prescription for Valium as needed if the Robaxin muscle relaxant is not sufficient. She already has oxycodones also. With combined morphine and follows Valium here she did not become hypoxic were radiates neck so I feel safe with this plan. With shared decision making, patient states she would much prefer to go home and get MRI outpatient. Has been at bedside agreeable to plan. She is now able to move her leg normally. Patient is given return precautions and instructed to come back at any point in time for worsening pain, fevers, weakness, difficulty walking, urinary or fecal incontinence. Patient expressed understanding of instructions. Lab Data 02/08/25 11:33 02/08/25 11:33 Labs: Lab Results 06/20/25 Range/Units 11:33 WBC 11.7 H (4.5-10.0) K/mm3 RBC 4.61 (4.2-5.4) M/mm3 Hgb 15.2 H (12.0-15.0) g/dL Hct 42.8 (37.0-47.0) % MCV 92.8 (80-100) fl MCH 33.0 (26-34) pg MCHC 35.5 (32-36) g/dl RDW 12.0 (11.5-14.5) % Plt Count 291 (150-375) k/mm3 MPV 10.9 H (7.4-10.4) fl Immature Gran % (Auto) 0.9 H (0-0.5) % Neut % (Auto) 87.2 H (45.5-73.1) % Lymph % (Auto) 8.2 L (18.3-44.2) % Clay % (Auto) 3.1 (2.6-8.5) % Eos % (Auto) 0.3 (0-4.4) % Baso % (Auto) 0.3 (0.2-1.2) % Lymph # (Auto) 0.96 (0.9-3.2) K/mm3 Clay # (Auto) 0.4 (0.1-0.6) K/mm3 Eos # (Auto) 0.0 (0-0.3) K/mm3 Baso # (Auto) 0.0 (0.0-0.1) K/mm3 Abs Immat Gran (auto) 0.11 H (0.00-0.031) K/mm3 Absolute Neuts (auto) 10.2 H (1.3-6.7) K/mm3 Absolute Nucleated RBC 0.000 (0.0-0.012) K/mm3 Nucleated RBC % 0.0 (0.0-0.2) % Sodium 136 L (137-145) mmol/L Potassium 4.4 (3.4-5.0) mmol/L Chloride 102 (98-107) mmol/L Carbon Dioxide 20 L (22-30) mmol/L Anion Gap 14 H (4-12) mmol/L BUN 26 H D (7-17) mg/dL Creatinine 0.74 (0.7-1.0) mg/dL Estim Creat Clear Calc Not Reportable Estimated GFR > 60 (59 - ) Glucose 245 H (65-110) mg/dL Calcium 10.7 H (8.4-10.2) mg/dL Total Bilirubin 0.5 (0.2-1.3) mg/dL AST 31 (14-36) U/L ALT 36 H (6-35) U/L Alkaline Phosphatase 88 (38-126) U/L Total Protein 8.6 H (6.3-8.2) g/dL Albumin 5.1 (3.5-5.1) g/dL Discharge Plan Discharge Clinical Impression: Muscle spasm Patient Disposition: Home Condition: Stable Instructions: Lumbar Radiculopathy (ED), Muscle Spasm (ED) Additional Instructions: Please follow-up with your neurosurgeon, continue with the medications here prescribed at home, try the new muscle relaxants and see if they help, you can always return to the emergency room if your symptoms come back or worsen. Patient Language: Romanian Prescriptions: New diazepam [Valium] 2 mg tablet 2 mg PO TID PRN (Reason: muscle spasm) Qty: 14 0RF methocarbamol 750 mg tablet 750 mg PO TID PRN (Reason: muscle spasm) Qty: 30 0RF No Action losartan 25 mg tablet 25 mg PO DAILY magnesium 250 mg tablet 250 mg PO DAILY potassium 99 mg tablet 99 mg PO DAILY cholecalciferol (vitamin D3) 125 mcg (5,000 unit) capsule 125 mcg PO DAILY rosuvastatin 20 mg tablet PO metformin 500 mg tablet extended release 24 hr 1,000 mg PO BID Qty: 360 1RF rosuvastatin 1 tablet PO DAILY Patient Comments: 20mg tablet oxycodone 5 mg tablet 5 mg PO Q8H PRN (Reason: pain) Qty: 21 0RF prednisone 10 mg tablet See Rx Instructions PO DIRECTED Qty: 18 0RF Rx Instructions: Start 02/06 3 tabs every AM for 3 days then 2 tabs every am for 3 days then 1 tab every am for 3 days with food orally as directed; see taper instructions ascorbic acid (vitamin C) 1,000 mg Tablet 1 g PO DAILY calcium carbonate [Calcium 600] 600 mg calcium (1,500 mg) Tablet 600 mg PO DAILY multivitamin,[id number] Tablet 1 tablet PO DAILY vitamin B complex Tablet 1 tablet PO DAILY aspirin [Adult Low Dose Aspirin] 81 mg Tablet,Delayed Release (Dr/Ec) 81 mg PO HS Patient Comments: Hold [address] Blackburn omega-3 fatty acids Capsule 1,000 mg PO DAILY sennosides [senna] 8.6 mg tablet 8.6 mg PO BID PRN (Reason: constipation) Qty: 30 2RF (DME) OneTouch Ultra Test Strip See Rx Instructions .ROUTE .COMPLEX Qty: 100 1RF Dose Instruction: FOR DIABETES USE TO CHECK GLUCOSE ONCE DAILY Rx Instructions: FOR DIABETES USE TO CHECK GLUCOSE ONCE DAILY (DME) lancets 33 gauge misc See Rx Instructions .Route Qty: 100 1RF Rx Instructions: use to check glucose once daily alendronate [Fosamax] 70 mg tablet 70 mg PO WEEKLY Qty: 12 1RF gabapentin 300 mg capsule See Rx Instructions .ROUTE .COMPLEX Qty: 90 2RF Dose Instruction: TAKE 1 CAPSULE BY MOUTH 3 TIMES A DAY Rx Instructions: TAKE 1 CAPSULE BY MOUTH 3 TIMES A DAY amoxicillin-pot clavulanate 875-125 mg tablet 1 tablet PO BID Qty: 20 0RF alprazolam 0.25 mg tablet 0.25 mg PO BID PRN (Reason: Anxiety) Qty: 60 5RF Follow-up/Referrals: Maria Dolores Roe PA-C [Primary Care Provider] -
[2025-02-08 13:07] VITALS: BP 152/78; PULSE 94; RESP 18; O2SAT 99
== END 2025-02-08 13:09 | disposition home or self-care (01) ==
PROVIDERS: Emergency Provider Emergency Medicine; PCP Physician Assistant Medical
DX: M62.830 Muscle spasm of back (principal); M81.0 Age-related osteoporosis without current pathological fracture; E78.5 Hyperlipidemia, unspecified; I10 Essential (primary) hypertension; E11.9 Type 2 diabetes mellitus without complications; Z87.891 Personal history of nicotine dependence
CPT/HCPCS: 36415; 80053; 85025; 96374; 96375; 99284; J1100; J2270; J3360

== ENCOUNTER 2025-02-09 11:04 | Outpatient (CLI) | payer MEDICARE, OTHER, SELFPAY ==
--- NOTE | ~2025-02-09 | MR_ITS ---
MRI of the lumbar spine Clinical History: Spinal stenosis, back pain Technique: Axial T2-weighted images, and sagittal T1-weighted, T2-weighted, and T2 fat-sat images wer e acquired. Findings: There is no fracture or subluxation of the lumbar spine. Probable minimal levoscoliosis. Th ere are reactive Modic signal changes about the L3-L4 disc space. No suspicious bone marrow signal ab normality seen. At L1-L2, there is no significant disc bulge or herniation. There is mild facet arthropathy. No centr al canal stenosis or neural foraminal narrowing. At L2-L3, there is minimal disc bulge and mild facet arthropathy. No central canal stenosis. There is mild right neural foraminal narrowing. Left neural foramen preserved. At L3-L4, there is severe degenerative disc disease. There is mild disc bulge and mild facet arthropa thy. No central canal stenosis. There is moderate to advanced left neural foraminal narrowing, and se daiana right neural foraminal narrowing. At L4-L5, there is mild disc bulge and minimal facet arthropathy. No central canal stenosis. There is moderate left neural foraminal narrowing and minimal right neural foraminal narrowing. At L5-S1, there is mild disc bulge and mild to moderate facet arthropathy. There is moderate central canal stenosis. There is severe left neural foraminal narrowing and mild to moderate right neural for aminal narrowing. Paravertebral soft tissues are unremarkable. Impression: Moderate degenerative spondylosis overall, with multilevel neural foraminal narrowing. Advanced degenerative disc narrowing at L3-L4 with reactive Modic signal changes about this disc spac e. Reviewed, dictated and finalized at [facility]. Impression: Moderate degenerative spondylosis overall, with multilevel neural foraminal esperanza rowing. Advanced degenerative disc narrowing at L3-L4 with reactive Modic signal change s about this disc space.
== END 2025-02-09 11:05 | disposition home or self-care (01) ==
LOC: MICIMG 11:05
PROVIDERS: PCP Physician Assistant Medical; Visit Provider Neurological Surgery
DX: M48.061 Spinal stenosis, lumbar region without neurogenic claudication (principal); M47.896 Other spondylosis, lumbar region
CPT/HCPCS: 72148

== ENCOUNTER 2025-03-19 09:55 | Outpatient (CLI) | payer MEDICARE, OTHER, SELFPAY ==
--- NOTE | ~2025-03-19 | CT_ITS ---
EXAMINATION: [id number] DATE: 03/19/2025 10:13 INDICATION: Lumbar spine navigation for surgery TECHNIQUE: Computed tomography (CT) of the lumbar spine was performed without intravenous contrast. T he dose-length product was 210.29 mGy-cm. COMPARISON: None FINDINGS: 15 degrees lumbar levoscoliosis. Straightening of the normal lumbar lordosis without spondylolisthesi s. Vertebral body heights are normal. Nondisplaced fracture extending from the left posterior aspect of the L5 vertebral body obliquely to the central canal across the left pedicle also involving the fl oor of the L4-L5 and remainder of the L5-S1 neural foramina. No other fractures identified. Severe di sc height loss with degenerative endplate remodeling and Modic type III sclerotic endplate changes at the right side of L3-L4. Mild right-sided prominent disc height loss at L2 and L2-L3 and mild left-s ided disc height loss at L4-L5 and L5-S1. The following disc levels are specifically discussed: T11-T12: The disc does not extend beyond the endplate margin. There is no facet joint osteoarthritis. There is no neural foraminal stenosis. There is no central canal stenosis. T12-L1: The disc does not extend beyond the endplate margin. There is no facet joint osteoarthritis. There is no neural foraminal stenosis. There is no central canal stenosis. L1-L2: The disc does not extend beyond the endplate margin. There is no facet joint osteoarthritis. T here is no neural foraminal stenosis. There is no central canal stenosis. L2-L3: The disc does not extend beyond the endplate margin. There is no facet joint osteoarthritis. T here is no neural foraminal stenosis. There is no central canal stenosis. L3-L4: The disc does not extend beyond the endplate margin. There is no facet joint osteoarthritis. T here is no neural foraminal stenosis. There is no central canal stenosis. L4-L5: The disc does not extend beyond the endplate margin. There is no facet joint osteoarthritis. T here is no neural foraminal stenosis. There is no central canal stenosis. L5-S1: The disc does not extend beyond the endplate margin. There is no facet joint osteoarthritis. T here is no neural foraminal stenosis. There is no central canal stenosis. IMPRESSION: 1. Reviewed, dictated and finalized at location A. IMPRESSION: 1.
--- OUTSIDE RECORDS SUMMARY | 2025-03-19 10:08 | XMS_ITS | Encounter Summary ---
Author Organization [facility] - [facility] Address [facility] [place] [address] Care Team Providers Care Chemical Blender Name Role Phone Allen Florence MD Primary Care Provider [phone] Susie LozaC Primary Care Provider [phone] Maria Dolores Roe Primary Care Provider [phone] Encounter Details Date Type Department Care Team (Late st Contact Info) Description 05/07/2022 Super Clean Jobsite Message Enc [facility] [address] [facility] Provider Stress Test Results Social History Tobacco [...] Care Team (Late st Contact Info) Description 04/24/2025 10:00 AM CD[place] [address] [place] [address] Maria Dolores Roe PA [address] [place] [id number] 12/04/2025 10:30 AM CDT [facility] [address] [place] [address] Yves Lilly MD [facility]. [address] [address] documented as of this encounter Visit Diagnoses Not on filedocumented in this encounter Care Teams Chemical Blender Relationship Specialty Start Date End Date Allen Florence MD [address] [place] [id number] PCP - General INTERNAL MEDICINE 07/07/19 05/10/22 Susie Loza PA-C [address] [place], [place] [id number] [place] [address] PCP - General PHYSICIAN GASOLINE LOCOMOTIVE CRANE OPERATOR 05/11/22 01/22/25 Maria Dolores Roe PA [address] [place] [id number] PCP - General PHYSICIAN GASOLINE LOCOMOTIVE CRANE OPERATOR 01/23/25 documented as of this encounter
--- OUTSIDE RECORDS SUMMARY | 2025-03-19 10:08 | XMS_ITS | Clinical Summary ---
Author Organization [facility] Address [address] [place] [address] Care Team Providers Care Catalyst Recovery Operator Name Role Phone Teja Etienne Primary Care Provider [phone] Allergies No known active allergies Medications ALPRAZolam [...] (1,000 mg total) by mouth daily. Active metFORMIN ER (GLUCOPHAGE-XR) 500 MG 24 hr tablet Take 2 tablets (1,000 mg total) by mouth 2 (two) times a day. 2 Active aspirin EC (ECOTRIN) 81 MG tablet Take 1 tablet (81 mg total) by mouth daily. 2 Active vitamin C (ASCORBIC ACID) 1000 MG tablet Take 1 tablet (1,000 mg total) by mouth daily. Active losartan (COZAAR) 25 MG tablet TAKE 1 TABLET (25 MG TOTAL) BY MOUTH DAILY. 90 tablet 2 4 Active rosuvastatin (CRESTOR) 20 MG tablet take 1 tablet by mouth nightly at bedtime 90 tablet 2 4 Active alendronate (FOSAMAX) 70 MG tablet Take 1 tablet (70 mg total) by mouth every 7 days. 5 Active gabapentin (NEURONTIN) 300 MG capsule Take 1 capsule (300 mg total) by mouth 3 (three) times daily. 5 Active magnesium oxide (MAG-OX) 250 MG tablet Take 1 tablet (250 mg total) by mouth daily. Active Potassium 99 MG tablet Take 1 tablet by mouth daily. Active Vitamin D3 125 mcg Tab Take 1 tablet (125 mcg total) by mouth daily. Active methylPREDNISol one, TAO, (MEDROL DOSEPAK) 4 MG tablet Take 1 tablet (4 mg total) by mouth 2 (two) times daily. Follow package directions 1 each Active Active Problems Problem Noted Date Diagnosed Date Spinal stenosis of lumbar region 12/26/2024 Primary hypertension 11/21/2024 Bilateral carotid bruits 04/28/2022 Mixed hyperlipidemia 04/28/2022 Osteoporosis 04/04/2020 CAP (community acquired pneumonia) 07/07/2019 Resolved Problems Problem Noted Date Diagnosed Date Resolved Date Encounter for abdominal aort ic aneurysm (AAA) screening 04/28/2022 05/03/2022 Encounters Date Type Department Care Team Description 03/06/2025 8:34 AM CDT - 03/06/2025 11:59 PM CDT Hospital Encounter [facility] MRI [id number] [place] [id number] Teja Etienne PA Discharge Disposition: Home or Self Care (Routine Discharge) 03/06/2025 Travel 02/04/2025 7:16 AM CDT - 02/04/2025 9:22 AM CDT Emergency [facility] Emergency Room [address] [place] [id number] Sybil Romero MD Hip Pain Discharge Disposition: Home or Self Care (Routine Discharge) 02/04/2025 Travel 01/31/2025 2:08 PM CDT - 01/31/2025 11:59 PM CDT Hospital Encounter [facility] Mammography [id number] [place] [id number] Teja Etienne PA Discharge Disposition: Home or Self Care (Routine Discharge) 01/31/2025 Travel 01/30/2025 8:15 AM CDT - 01/30/2025 11:59 PM CDT Hospital Encounter [facility] Outpatient Rehab [address] [place] [id number] Tracy Hoang, Coleman Vasquez MD Back Pain Discharge Disposition: Home or Self Care (Routine Discharge) 01/30/2025 Travel 01/23/2025 12:59 PM CDT - 01/23/2025 11:59 PM CDT Hospital Encounter [facility] [id number] [place] [id number] Susie Loza PA-C Gerling, Savannah L, COKE CRANE OPERATOR Back Pain Discharge Disposition: Home or Self Care (Routine Discharge) 01/23/2025 10:19 AM CDT - 01/23/2025 12:58 PM CDT Hospital Encounter [facility] [address] [place] [phone] Teja Etienne PA Discharge Disposition: Home or Self Care (Routine Discharge) 01/23/2025 Travel 01/21/2025 11:13 AM CDT - 01/21/2025 11:59 PM CDT Hospital Encounter [facility] [address] [place] [address] 275[address] Susie Loza PA-C Gerling, Amy Chandler, COKE CRANE OPERATOR Spinal Stenosis Discharge Disposition: Home or Self Care (Routine Discharge) 01/21/2025 Travel 01/16/2025 9:43 AM CDT - 01/16/2025 11:59 PM CDT Hospital Encounter [facility] [address] [place] [address] Tracy Hoang, Coleman Vasquez MD Back Pain Discharge Disposition: Home or Self Care (Routine Discharge) 01/16/2025 Travel 01/11/2025 9:28 AM CDT - 01/11/2025 11:59 PM CDT Hospital Encounter [facility] [address] [place] [address] Tracy Hoang PT Fong, Brendan Manuel, MD Back Pain Discharge Disposition: Home or Self Care (Routine Discharge) 01/11/2025 Travel 01/09/2025 10:26 AM CDT - 01/09/2025 11:59 PM CDT Hospital Encounter [facility] [address] [place] [address] 9[address] Tracy Hoang, Coleman Vasquez MD Back Pain Discharge Disposition: Home or Self Care (Routine Discharge) 01/09/2025 Travel 01/04/2025 2:07 PM CDT - 01/04/2025 11:59 PM CDT Hospital Encounter [facility] [address] [place] [address] 585[address] Tracy Hoang, Coleman Vasquez MD Back Pain Discharge Disposition: Home or Self Care (Routine Discharge) 01/04/2025 Travel 01/02/2025 8:10 AM CDT - 01/02/2025 11:59 PM CDT Hospital Encounter [facility] [address] [place] [address] 564[address] Tracy Hoang, Coleman Vasquez MD Back Pain Discharge Disposition: Home or Self Care (Routine Discharge) 01/02/2025 Travel 12/28/2024 11:12 AM CDT - 12/28/2024 11:59 PM CDT Hospital Encounter [facility] [address] [place] [address] 88882 Coleman Blackburn MD Gerling, Savannah L, COKE CRANE OPERATOR Back Pain Discharge Disposition: Home or Self Care (Routine Discharge) 12/28/2024 Travel 12/26/2024 10:30 AM CDT - 12/26/2024 11:59 PM CDT Hospital Encounter [facility] [address] [place] [address] 59426 Tracy Hoang, Coleman Vasquez MD Back Pain Discharge Disposition: Home or Self Care (Routine Discharge) 12/26/2024 Travel from Last 3 Months Immunizations Immunization Administration Dates Next Due Flucelvax 6 Months+ (Prefilled Syringe) 06/02/20 18 Fluzone High Dose - >Age 65 (Prefilled Syringe) 06/06/2020,05/19/2019 Influenza (Generic) 08/24/2013,05/11/2012 Influenza Adult (Generic) 05/31/2016 MODERNA COVID-19 (12+) MRNA, LNP-S, PF, 100 MCG/ 0.5 ML DOSE 10/16/2020,09/18/2020 Pneumococcal (Pneumovax 23) 10/16/2019 Pneumococcal (Prevnar 13) 10/10/2018 Tdap (Adacel) 10/17/2015 Family History Medical History Relation Comments pneumonia [...] Sign Reading Time Taken Comments Blood Pressure 183/117 02/04/2025 9:00 AM CDT Pulse 91 02/04/2025 7:26 AM CDT Temperature 36.4 C (97.6 F) 02/04/2025 7:26 AM CDT Respiratory Rate 18 02/04/2025 9:00 AM CDT Oxygen Saturation 96% 02/04/2025 9:00 AM CDT Inhaled Oxygen Concentration - - Weight 52.2 kg (115 lb) 02/04/2025 7:26 AM CDT Height 149.9 cm (4' 11) 02/04/2025 7:26 AM CDT Body Mass Index 23.23 02/04/2025 7:26 AM CDT Plan of Treatment Upcoming Encounters Date Type Department Care Team (Late st Contact Info) Description 04/24/2025 10:[address] [facility] [address] [place] [address] Teja Etienne PA [address] [place] [address] 12/04/2025 10:30 AM CDT [facility] [address] [place] [phone] Yves Lilly MD [facility]. [address] [place] [address] [place] [address] Health Maintenance Due Date Last Done Comments Colorectal Cancer Screening Colonoscopy (10 Years) 1955 Hepatitis C 1971 Zoster Vaccines (1 of 2) 2003 Annual Medicare Wellness Visit 2018 COVID-19 Vaccine ( - season) 2024 10/16/2020, 09/18/2020 PHQ-2 (Physician [facility]) 08/22/2024 DTaP, Tdap and Td Vaccines (2 - Td or Tdap) 10/17/2025 10/17/2015 Mammogram Screening 01/31/2027 01/31/2025, 01/25/2024, 11/02/2022, Additional history exists RSV Immunization or 60+ Years (1 - 1-dose 75+ series) 2028 Pneumococcal Vaccine: 50+ Years Completed 10/16/2019, 10/10/2018 Dexa Scan (General) [...] this topic Medical Devices Implanted Type Area Black Powder Glazing Operator Device Identifier Shelf Expiration Date Model / Serial / Lot Marcia Iol Implanted:Qty: 1 on 11/01/2022 by Chan Cannon MD at [facility] Right: Eye [id number] 07/14/2025 / [id number] / Procedures Procedure Name Priority Date/Time Associated Diagnosis Comments MRI ABD WWO CON Routine 03/06/2025 10:21 AM CDT Abnormal radiologic findings on diagnostic imaging of unspecified kidney URINALYSIS, AUTO, COMPLETE STAT 02/04/2025 9:00 AM CDT XR HIP LT 2V STAT 02/04/2025 8:[address] LUMB SPINE WO CON STAT 02/04/2025 7:58 AM CDT MG SCREENING W BRADY CROW DIGI Routine 01/31/2025 2:57 PM CDT Encounter for screening mammogram for malignant neoplasm of breast CT LUNG SCREENING Routine 01/23/2025 11: 07 AM CDT Personal history of nicotine dependence BONE DENSITY/DEXA Routine 05/28/2024 2:4 5 PM CDT Other primary ovarian failure from Last 3 Months or Most Recently Relevant to Health Maintenance Results * MRI ABD WWO CON (03/06/2025 10:21 AM CDT) Anatomical Region Laterality Modality Abdomen Magnetic Resonan ce 03/08/2025 2:34 PM CDT Impressions 03/08/2025 2:45 PM CDT Impression: 1. Multiple bilateral renal cysts, the majority of which are simple appearing. There is a Bosniak 2 cyst and hemorrhagic/proteinaceous cyst at the inferior pole left kidney, for which no specific follow-up is required. No suspicious renal lesions. 2. 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 Recommend follow-up MRI abdomen in 2 years to ensure stability per ACR consensus guidelines. Ordered By: TEJA ETIENNE Interpreted By: Declan James MD, 03/08/2025 2:34 PM Narrative 03/08/2025 2:45 PM CDT [facility] [address] [place] [address] Procedure: MRI Abdomen with and without contrast Indication: Left renal lesion seen on prior CT lumbar spine. Comparison: CT head the lumbar spine 02/08/2025. Technique: Precontrast and dynamic postcontrast MR imaging of the abdomen was performed using the renal Protocol. IV contrast was administered to improve disease detection and further define anatomy. Findings: - Lower Thorax: No suspicious pulmonary abnormalities. No pleural or pericardial effusions. - Liver: Normal morphology. Multiple T2 hyperintense hepatic cysts, the largest seen in the right hepatic lobe measuring 2.1 cm on series 3 image 6.. No suspicious liver lesions. The portal and hepatic veins are patent. - Biliary and Gallbladder: No intrahepatic or extrahepatic bile duct dilatation. The gallbladder is unremarkable. - Spleen: Normal in appearance. Splenule. - Pancreas: Tiny T2 hyperintense cystic lesion seen at the pancreatic tail measuring 4 mm on series 3 image 12. No suspicious features. Pancreatic duct is normal caliber. No peripancreatic inflammation. - Adrenal Glands: There is a 1.7 cm left adrenal nodule on series 3 image 13. This previously measured -2 Hounsfield units on prior CT compatible with a benign adenoma. No specific follow-up is required. No right renal lesion. - Kidneys: Symmetric in size and enhancement. Multiple bilateral T2 hyperintense simple cysts. There is a cyst at the inferior pole left kidney measuring 2.1 cm on series 2 image 12 with a single thin internal septation. Bosniak 2. No specific follow-up is required. There is an intrinsically T1 hyperintense cyst seen at the inferior pole left kidney measuring 1.5 cm on series 8 image 52. Slight misregistration artifact, however no definite suspicious enhancement seen on the subtraction images. No significant wall thickening, measuring 2 mm. No specific follow-up is required. No hydronephrosis. - Abdominal Vasculature: No abdominal aortic aneurysm. - Gastrointestinal Tract: No abnormal dilation or wall thickening. - Peritoneum/Mesentery/Retroperitoneum: No free fluid. - Lymph Nodes: No retroperitoneal or mesenteric lymphadenopathy. - Body Wall: Unremarkable. - Musculoskeletal: No aggressive appearing osseous lesions. Procedure Note Declan James MD - 03/08/2025 [facility] [address] [place] [address] Procedure: MRI Abdomen with and without contrast Indication: Left renal lesion seen on prior CT lumbar spine. Comparison: CT head the lumbar spine 02/08/2025. Technique: Precontrast and dynamic postcontrast MR imaging of the abdomenwas performed using the renal Protocol. IV contrast was administered toimprove disease detection and further define anatomy. Findings: - Lower Thorax: No suspicious pulmonary abnormalities. No pleural orpericardial effusions. - Liver: Normal morphology. Multiple T2 hyperintense hepatic cysts, thelargest seen in the right hepatic lobe measuring 2.1 cm on series 3 image6.. No suspicious liver lesions. The portal and hepatic veins are patent. - Biliary and Gallbladder: No intrahepatic or extrahepatic bile ductdilatation. The gallbladder is unremarkable. - Spleen: Normal in appearance. Splenule. - Pancreas: Tiny T2 hyperintense cystic lesion seen at the pancreatic tailmeasuring 4 mm on series 3 image 12. No suspicious features. Pancreaticduct is normal caliber. No peripancreatic inflammation. - Adrenal Glands: There is a 1.7 cm left adrenal nodule on series 3 image13. This previously measured -2 Houn[address] units on prior CT compatiblewith a benign adenoma. No specific follow-up is required. No right renallesion. - Kidneys: Symmetric in size and enhancement. Multiple bilateral X0fsryezbrxjih simple cysts. There is a cyst at the inferior pole leftkidney measuring 2.1 cm on series 2 image 12 with a single thin internalseptation. Bosniak 2. No specific follow-up is required. There is anintrinsically T1 hyperintense cyst seen at the inferior pole left kidneymeasuring 1.5 cm on series 8 image 52. Slight misregistration artifact,however no definite suspicious enhancement seen on the subtraction images.No significant wall thickening, measuring 2 mm. No specific follow-up isrequired. No hydronephrosis. - Abdominal Vasculature: No abdominal aortic aneurysm. - Gastrointestinal Tract: No abnormal dilation or wall thickening. - Peritoneum/Mesentery/Retroperitoneum: No free fluid. - Lymph Nodes: No retroperitoneal or mesenteric lymphadenopathy. - Body Wall: Unremarkable. - Musculoskeletal: No aggressive appearing osseous lesions. Impression: 1. Multiple bilateral renal cysts, the majority of which are simpleappearing. There is a Bosniak 2 cyst and hemorrhagic/proteinaceous cyst atthe inferior pole left kidney, for which no specific follow-up isrequired. No suspicious renal lesions. 2. Tiny 4 mm cystic lesion pancreatic tail, favored to reflect a smallsidebranch IPMN. Recommend follow-up MRI abdomen in 2 years to ensurestability per ACR consensus guidelines. Ordered By: TEJA ETIENNE Interpreted By: Declan James MD, 03/08/2025 2:34 PM Teja Etienne [place] MRI Final Result * URINALYSIS, AUTO, COMPLETE (02/04/2025 9:00 AM CDT) COLOR (U) YELLOW 02/04/2025 9:27 AM CDT [facility] TRANSPARENCY CLEAR 02/04/2025 9:27 AM CDT [facility] SPECIFIC GRAVITY (U) <1.005 1.000 - 1.030 02/04/2025 9:27 AM CDT [facility] U PH 6.0 5.0 - 9.0 02/04/2025 9:27 AM CDT [facility] LEUKOCYTES (U) NEGATIVE NEGATIVE 02/04/2025 9:27 AM CDT [facility] NITRITES NEGATIVE NEGATIVE 02/04/2025 9:27 AM CDT [facility] PROTEIN RANDOM (U) NEGATIVE NEGATIVE 02/04/2025 9:27 AM CDT [facility] GLUCOSE (U) NEGATIVE NEGATIVE 02/04/2025 9:27 AM T [facility] KETONES MG/DL (U) NEGATIVE NEGATIVE 02/04/2025 9:27 AM CDT [facility] BILIRUBIN (U) NEGATIVE NEGATIVE 02/04/2025 9:27 AM T [facility] BLOOD (U) NEGATIVE NEGATIVE 02/04/2025 9:27 AM CDT [facility] WBC/HPF 0-5 0 - 5 /HPF 02/04/2025 9:27 AM CDT [facility] RBC/HPF NONE SEEN 0 - 5 /HPF 02/04/2025 9:27 AM CDT [facility] EPI/HPF RENAL TUBULAR EPI CELLS /HPF 02/04/2025 9:27 AM CDT [facility] URINE SPECIMEN OBTAINED BY CLEAN CATCH PROCEDURE / Unknown 02/04/2025 9:00 AM CDT us Sybil Romero MD URINE ORDERABLES Final Result [facility] [address] [place] [address], * XR HIP LT 2V (02/04/2025 8:03 AM CDT) Anatomical Region Laterality Modality Hip Radiographic Leslee ging 02/04/2025 8:17 AM CDT Impressions 02/04/2025 8:18 AM CDT IMPRESSION: 1. NO SIGNIFICANT RADIOGRAPHIC ABNORMALITY. Signed: Cristian Pneg MD Referred By: Interpreted By: Cristian Peng MD, 02/04/2025 8:17 AM Narrative 02/04/2025 8:18 AM CDT [address] [place] [address] PATIENT NAME: MARIBETH TAVAREZ EXAM: Left hip 2 view DATE OF EXAM: 02/04/2025 COMPARISON EXAM: None INDICATION: Hip pain TECHNIQUE: AP and frog lateral left hip FINDINGS: No soft tissue abnormality. No evidence of acute fracture or focal lytic bone destructive lesion. Left hip joint space well maintained. No evidence of femoral head AP and. Procedure Note Cristian Peng MD - 02/04/2025 [place] [address] PATIENT NAME: MARIBETH TAVAREZ EXAM: Left hip 2 view DATE OF EXAM: 02/04/2025 COMPARISON EXAM: None INDICATION: Hip pain TECHNIQUE: AP and frog lateral left hip FINDINGS: No soft tissue abnormality. No evidence of acute fracture orfocal lytic bone destructive lesion. Left hip joint space wellmaintained. No evidence of femoral head AP and. IMPRESSION: 1. NO SIGNIFICANT RADIOGRAPHIC ABNORMALITY. Signed: Cristian Peng MD Referred By: Interpreted By: Cristian Peng MD, 02/04/2025 8:17 AM us Sybil Romero MD GENERAL IMAGING Final Result * CT LUMB SPINE WO CON (02/04/2025 7:58 AM CDT) Anatomical Region Laterality Modality Spine Computed Tomogra phy 02/04/2025 8:23 AM CDT Impressions 02/04/2025 8:29 AM CDT IMPRESSION: 1. Post surgical and multilevel degenerative changes in the lumbar spine contributing to varying degrees of spinal canal and foraminal stenosis, as detailed above. 2. Indeterminate density renal lesions. Advise further evaluation with renal protocol MRI or CT without/with contrast. 3. Atherosclerosis. 4. Nonobstructing nephrolithiasis. 5. Diverticulosis. Ordered By: SYBIL ROMERO Interpreted By: Curry Winkler MD, 02/04/2025 8:23 AM Narrative 02/04/2025 8:29 AM CDT [facility] [address] [place] [address] DATE: 02/04/2025 7:56 AM INDICATION: Back pain. EXAMINATION: CT examination of the lumbar spine. TECHNIQUE: CT examination of the lumbar spine was performed with axial and multiplanar reformatted images obtained. A dose lowering technique was used for this procedure, which may include, but is not limited to, dose reduction technique, automated exposure control, the use of iterative reconstruction, and ALARA (As Low As Reasonably Achievable) / Image Gently techniques. COMPARISON: None FINDINGS: There are 5 nonrib-bearing lumbar-type vertebral levels identified. Mid lumbar levoscoliosis. Otherwise the lumbar vertebral alignment, vertebral body heights, and facet alignment are maintained. Multilevel degenerative changes are evident. Post surgical changes of right-sided laminotomy at L3-L4. The lumbar spine with disc degeneration, endplate osteophytes, ligamentum flavum thickening, and facet hypertrophy noted. Multilevel disc desiccation. Greatest loss of disc height with intradiscal vacuum cleft phenomenon and reactive endplate sclerosis at L3-L4. Scattered indeterminate density renal lesions. Bilateral nonobstructing nephrolithiasis. Atherosclerotic calcifications. Colonic diverticulosis. T11-T12: Mild disc bulge. Facet hypertrophy. No significant canal or foraminal narrowing. T12-L1: Mild disc bulge. Left paracentral protrusion with annular calcification. Facet hypertrophy. No significant canal or foraminal narrowing. L1-L2: Mild disc bulge. Facet hypertrophy. Endplate osteophytes. No significant canal or foraminal narrowing. L2-L3: Disc bulge with extension into the foramina. Endplate osteophytes. Ligamentous and facet hypertrophy. No significant canal stenosis. Mild right foraminal narrowing. L3-L4: Surgical changes of right-sided laminotomy. Disc bulge with extension into the foramina. Posterior and marginal endplate osteophytes. Ligamentous and facet hypertrophy. Right greater than left lateral recess and mild to moderate canal stenosis. Severe right and mild to moderate left foraminal narrowing. L4-L5: Disc bulge with extension into the foramina. Ligamentous and facet hypertrophy. Endplate osteophytes. Mild to moderate canal stenosis. Mild to moderate left and mild right foraminal narrowing. L5-S1: Disc bulge with extension into the foramina. Endplate osteophytes. Facet hypertrophy. Mild canal stenosis. Moderate to severe left and mild right foraminal narrowing. Procedure Note Curry Winkler MD - 02/04/2025 [facility] [address] [place] [address] DATE: 02/04/2025 7:56 AM INDICATION: Back pain. EXAMINATION: CT examination of the lumbar spine. TECHNIQUE: CT examination of the lumbar spine was performed with axial andmultiplanar reformatted images obtained. A dose lowering technique was used for this procedure, which may include,but is not limited to, dose reduction technique, automated exposurecontrol, the use of iterative reconstruction, and ALARA (As Low AsReasonably Achievable) / Image Gently techniques. COMPARISON: None FINDINGS: There are 5 nonrib-bearing lumbar-type vertebral levels identified. Midlumbar levoscoliosis. Otherwise the lumbar vertebral alignment, vertebralbody heights, and facet alignment are maintained. Multilevel degenerativechanges are evident. Post surgical changes of right-sided laminotomy atL3-L4. The lumbar spine with disc degeneration, endplate osteophytes,ligamentum flavum thickening, and facet hypertrophy noted. Multilevel discdesiccation. Greatest loss of disc height with intradiscal vacuum cleftphenomenon and reactive endplate sclerosis at L3-L4. Scattered indeterminate density renal lesions. Bilateral nonobstructingnephrolithiasis. Atherosclerotic calcifications. Colonic diverticulosis. T11-T12: Mild disc bulge. Facet hypertrophy. No significant canal orforaminal narrowing. T12-L1: Mild disc bulge. Left paracentral protrusion with annularcalcification. Facet hypertrophy. No significant canal or foraminalnarrowing. L1-L2: Mild disc bulge. Facet hypertrophy. Endplate osteophytes. Nosignificant canal or foraminal narrowing. L2-L3: Disc bulge with extension into the foramina. Endplate osteophytes.Ligamentous and facet hypertrophy. No significant canal stenosis. Mildright foraminal narrowing. L3-L4: Surgical changes of right-sided laminotomy. Disc bulge withextension into the foramina. Posterior and marginal endplate osteophytes.Ligamentous and facet hypertrophy. Right greater than left lateral recessand mild to moderate canal stenosis. Severe right and mild to moderateleft foraminal narrowing. L4-L5: Disc bulge with extension into the foramina. Ligamentous and facethypertrophy. Endplate osteophytes. Mild to moderate canal stenosis. Mildto moderate left and mild right foraminal narrowing. L5-S1: Disc bulge with extension into the foramina. Endplate osteophytes.Facet hypertrophy. Mild canal stenosis. Moderate to severe left and mildright foraminal narrowing. IMPRESSION: 1. Post surgical and multilevel degenerative changes in the lumbar spinecontributing to varying degrees of spinal canal and foraminal stenosis, asdetailed above. 2. Indeterminate density renal lesions. Advise further evaluation withrenal protocol MRI or CT without/with contrast. 3. Atherosclerosis. 4. Nonobstructing nephrolithiasis. 5. Diverticulosis. Ordered By: SYBIL ROMERO Interpreted By: Curry Winkler MD, 02/04/2025 8:23 AM us Sybil Romero MD CT Final Result * MG SCREENING W BRADY CROW DIGI (01/31/2025 2:57 PM CDT) Anatomical Region Laterality Modality Breast Bilateral Mammography 01/31/2025 3:10 PM CDT Impressions 01/31/2025 3:14 PM CDT ===== IMPRESSION: ===== 1. Stable mammographic appearance with no new findings to suggest malignancy in either breast. Assessment: ACR BI-RADS 2 - BENIGN FINDING(S) Recommendation: 1:Routine Screening Bilateral Comments: Ordered By: TEJA ETIENNE Interpreted By: Chanel Bella, 01/31/2025 3:10 PM Narrative 01/31/2025 3:14 PM CDT [facility] [id number] [place] [address] EXAMINATION: Digital bilateral screening mammogram with 3-D tomosynthesis EXAM DATE/TIME: 01/31/2025 2:12 PM REASON FOR EXAM: routine COMPARISON: 11/02/2022. 01/25/2024 Technique: Digital screening mammography of both breasts was performed in addition to 3-D Tomosynthesis technique. This study was read with the assistance of a computer-aided detection system. Tissue density: The breasts are heterogeneously dense, which may obscure small masses. Findings: There is no new focal asymmetry, dominant mass lesion, area of skin thickening, or cluster of suspicious appearing calcifications in either breast to suggest malignancy. Teja MORENO MAMMO Final Result * CT LUNG SCREENING (01/23/2025 11:07 AM CDT) Anatomical Region Laterality Modality Chest Computed Tomogra phy 01/31/2025 1:06 PM CDT Impressions 01/31/2025 1:12 PM CDT IMPRESSION: 1. LUNG-RADS category 0: Incomplete. Findings suggestive of an inflammatory or infectious process and the right upper lobe. 2. LUNG-RADS category S: Negative, no new/unknown potentially significant incidental findings requiring urgent additional evaluation. 3. Other incidental findings as above. RECOMMENDATIONS: Repeat low-dose chest CT in 1-3 months after appropriate evaluation and antimicrobial therapy if clinically indicated. Recommend follow up exam on or before 05/03/2025. Thank you for choosing the [facility] Lung Screening Program. Referred By: TEJA ETIENNE Interpreted By: Nico Lassiter MD, 01/31/2025 1:06 PM Narrative 01/31/2025 1:12 PM CDT [facility] [address] [place] [address] EXAM: LUNG SCREENING LOW-DOSE CT THORAX WITHOUT CONTRAST DATE: 01 23.5 HISTORY: Asymptomatic patient with history of smoking meeting CMS high-risk criteria for lung screening. * 69 years * 30 pack years or greater * Current smoker or have quit smoking within the last 15 years COMPARISON: 10/04/2023 TECHNIQUE: Noncontrast, helical, low-dose CT (LDCT) chest per standard departmental protocol. A dose lowering technique was used for this procedure, which may include, but is not limited to, dose reduction technique, automated exposure control, the use of iterative reconstruction, and ALARA (As Low As Reasonably Achievable) / Image Gently techniques. FINDINGS: Lung Screening Specific (LUNG-RADS): Incomplete. Findings suggestive of an inflammatory or infectious process with new patchy ground glass opacity and linear consolidative change in the posterior right upper lobe. The previously described pulmonary nodules are unchanged in size compared to the prior examination and all measure less than 6 mm in diameter. These can be seen in the right lung apex (solid, parenchymal) on image 21, posterior right upper lobe (subsolid, parenchymal) on image 37, and in the superior left lower lobe (groundglass, parenchymal) on image 48. Potentially Significant Incidentals (LUNG-RADS category S): None Pulmonary Incidentals: There are linear areas of subsegmental atelectasis. Other Incidentals: Ectasia of the ascending thoracic aorta measuring up to 4 cm. This appears largely unchanged from the prior examination. Coronary artery calcification. Stable low-density lesion in the liver most suggestive of a cyst. Nonobstructing bilateral renal stones. Procedure Note Nico Lassiter MD - 01/31/2025 [facility] [address] [place] [address] EXAM: LUNG SCREENING LOW-DOSE CT THORAX WITHOUT CONTRAST DATE: 11.24 HISTORY: Asymptomatic patient with history of smoking meeting CMShigh-risk criteria for lung screening. * 69 years * 30 pack years or greater * Current smoker or have quit smoking within the last 15 years COMPARISON: 10/04/2023 TECHNIQUE: Noncontrast, helical, low-dose CT (LDCT) chest per standarddepartmental protocol. A dose lowering technique was used for thisprocedure, which may include, but is not limited to, dose reductiontechnique, automated exposure control, the use of iterativereconstruction, and ALARA (As Low As Reasonably Achievable) / Image Gentlytechniques. FINDINGS: Lung Screening Specific (LUNG-RADS): Incomplete. Findings suggestive ofan inflammatory or infectious process with new patchy ground glass opacityand linear consolidative change in the posterior right upper lobe. The previously described pulmonary nodules are unchanged in size comparedto the prior examination and all measure less than 6 mm in diameter.These can be seen in the right lung apex (solid, parenchymal) on image 21,posterior right upper lobe (subsolid, parenchymal) on image 37, and in thesuperior left lower lobe (groundglass, parenchymal) on image 48. Potentially Significant Incidentals (LUNG-RADS category S): None Pulmonary Incidentals: There are linear areas of subsegmentalatelectasis. Other Incidentals: Ectasia of the ascending thoracic aorta measuring up to4 cm. This appears largely unchanged from the prior examination.Coronary artery calcification. Stable low-density lesion in the livermost suggestive of a cyst. Nonobstructing bilateral renal stones. IMPRESSION: 1. LUNG-RADS category 0: Incomplete. Findings suggestive of aninflammatory or infectious process and the right upper lobe. 2. LUNG-RADS category S: Negative, no new/unknown potentially significantincidental findings requiring urgent additional evaluation. 3. Other incidental findings as above. RECOMMENDATIONS: Repeat low-dose chest CT in 1-3 months after appropriateevaluation and antimicrobial therapy if clinically indicated. Recommend follow up exam on or before 05/03/2025. Thank you for choosing the [facility] LungScreening [facility]. Referred By: TEJA ETIENNE Interpreted By: Nico Lassiter MD, 01/31/2025 1:[address] Final Result * BONE DENSITY/DEXA (05/28/2024 2:45 PM CDT) [...] or have additional risk factors. Referred By: TEJA ETIENNE Interpreted By: Golden Kay MD, 05/29/2024 8:50 AM Narrative 05/29/2024 8:51 AM CDT [facility] [address] [address] [place] [id number] EXAMINATION: BONE DENSITY/DEXA INDICATIONS: Other primary ovarian [...] Procedure Note Golden Kay MD - 05/29/2024 [facility] [address] [facility]. [place] [id number] EXAMINATION: BONE DENSITY/DEXA INDICATIONS: Other primary ovarian [...] or have additional risk factors. Referred By: TEJA ETIENNE Interpreted By: Golden Kay MD, 05/29/2024 8:50 AM Teja MORENO DEXA Final Result from Last 3 Months or Most Recently Relevant to Health Maintenance Insurance MEDICARE [facility] Advance Directives * Full Code (Latest Code Status on File) Date Activated Date Inactivated Comments 07/07/2019 2:21 PM 07/09/2019 2:39 PM Care Teams Catalyst Recovery Operator Relationship Specialty Start Date End Date Teja Etienne PA [address] [place] [address] PCP - General PHYSICIAN WOUND CARE CENTER CONSULTANT 01/23/25
--- OUTSIDE RECORDS SUMMARY | 2025-03-19 10:08 | XMS_ITS | Encounter Summary ---
Author Organization [facility] Address [facility] [place] [address] Care Team Providers Care Checker Loader Name Role Phone Susie Loza PA-C Primary Care Provider [phone] Maria Dolores Roe Primary Care Provider [phone] Encounter Details Date Type Department Care Team (Late st Contact Info) Description 10/06/2022 Abstract [facility], [address] [address] Shanna Bailey MA Social History Tobacco Use [...] Coronavirus/COVID-19? No / Unsure 09/23/2022 2:21 PM SOAP SLABBER documented as of this encounter Functional Status * RETIRED Are you deaf or do you have serious difficulty hearing Answer Date of Assessment Author Status No 07/07/2019 3:03 PM SOAP SLABBER Activ e * 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 Answer Date of Assessment Author Status No 07/07/2019 3:03 PM SOAP SLABBER Activ e * Do you have serious [...] Info) Description 04/24/2025 10:00 AM CDT Appointment [facility] [address] [place] [address] Maria Dolores Roe PA [address] [place] [address] 12/04/2025 10:30 AM CDT Office Visit [place] [facility] [address] [place] [address] Yves Lilly MD [address] [address] documented as of this encounter Procedures Procedure Name Priority Date/Time Associated Diagnosis Comments CBC (OUTSIDE LAB) Routine 09/23/2022 COMPREHENSIVE METABOLIC PANEL Routine 09/23/2022 LIPID PANEL Routine 09/23/2022 THYROID STIM HORMONE TSH Routine 09/23/2022 documented in this encounter Results * CBC (OUTSIDE LAB) (09/23/2022) Pathologist [facility] WBC 6.2 HGB 14.7 HCT 42.5 PLT 251 09/23/2022 us Default History Genericprovider LAB-OUTSIDE/ABST RACTED Final Result * THYROID STIM HORMONE, TSH (09/23/2022) Pathologist [facility] TSH 1.89 09/23/2022 us Default History Genericprovider LABORATORY Final Result * COMPREHENSIVE METABOLIC PANEL (09/23/2022) Pathologist [facility] SODIUM S/P/B 139 POTASSIUM S/P/B 4.6 CO2 [...] LABORATORY Final Result * LIPID PANEL (09/23/2022) Pathologist [facility] CHOLESTEROL 172 HDL 51 TRIGLYCERIDES 115 NON HDL CHOLESTEROL 121 LDL (CALCULATED) 100 09/23/2022 us Default History Genericprovider LABORATORY Final Result documented in this encounter Visit Diagnoses Not on filedocumented in this encounter Care Teams Checker Loader Relationship Specialty Start Date End Date Susie Loza PA-C [address] [place] [address] PCP - General PHYSICIAN SINGLE WIRE SAW OPERATOR 05/11/22 01/22/25 Maria Dolores Roe PA [address] [place] [address] PCP - General PHYSICIAN SINGLE WIRE SAW OPERATOR 01/23/25 documented as of this encounter
--- OUTSIDE RECORDS SUMMARY | 2025-03-19 10:08 | XMS_ITS | Encounter Summary ---
Author Organization [facility] Address [facility] [place] [address] Care Team Providers Care Straightedge Machine Operator Helper Name Role Phone Allen Florence MD Primary Care Provider [phone] Susie Loza PA-C Primary Care Provider [phone] Maria Dolores Roe Primary Care Provider [phone] Encounter Details Date Type Department Care Team (Late st Contact Info) Description 04/30/2022 Therapy Plan [facility] [address] [place], [place] [id number] Maria Dolores Roe PA [address] [place], [place] [id number] Social History Tobacco Use Types Packs/Day Years [...] Assessment Author Status No 07/07/2019 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 Answer Date of Assessment Author Status No 07/07/2019 3:03 PM MEDICAL PHYSICS TEACHER Activ e * Do you have serious [...] Info) Description 04/24/2025 10:00 AM CDT [place] [address] [place] [address] Maria Dolores Roe PA [address] [place] [address] 12/04/2025 10:30 AM CDT [facility] [address] [place] [address] Yves Lilly MD [address] [address] documented as of this encounter Visit Diagnoses Diagnosis Osteoporosis- Primary Osteoporosis, unspecified documented in this encounter Care Teams Straightedge Machine Operator Helper Relationship Specialty Start Date End Date Allen Florence MD [address] [place] [address] PCP - General INTERNAL MEDICINE 07/07/19 05/10/22 Susie Loza PA-C [address] [place] [address] PCP - General PHYSICIAN TIRE CLASSIFIER 05/11/22 01/22/25 Maria Dolores Roe PA [address] [place] [address] PCP - General PHYSICIAN TIRE CLASSIFIER 01/23/25 documented as of this encounter
--- OUTSIDE RECORDS SUMMARY | 2025-03-19 10:08 | XMS_ITS | Encounter Summary ---
Author Organization [facility] Address [facility] [place] [address] Care Team Providers Care Buggyman Name Role Phone Allen [place] MD Primary Care Provider Susie Loza PA-C Primary Care Provider [phone] Maria Dolores Roe Primary Care Provider [phone] Reason for Referral * Medication (Routine) - Closed Specialty Diagnoses / Procedures Referred By Contac t Referred To Contact INFUSION THERAPY / [facility] Infusion Therapy Diagnoses Osteoporosis Procedures ZOLEDRONIC ACID 1 MG [facility] [address] [place] [address] Phone: tel: [facility] [address] [place] [address] Phone: tel: Referral ID Status Reason Start Date Expiration Date V isits Requested Visits Authorized [id number] Closed Specialty Services 01/23/2021 02/22/2022 1 1 Encounter Details Date Type Department Care Team (Late st Contact Info) Description 01/23/2021 Therapy Plan [facility] [address] [place] [address] Maria Dolores Roe PA [address] [place] [address] Social History Tobacco Use Types Packs/Day Years [...] Assessment Author Status No 07/07/2019 3:03 PM 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 Answer Date of Assessment Author Status No 07/07/2019 3:03 PM GAS MASK ASSEMBLER Activ e * Do you have serious [...] Info) Description 04/24/2025 10:00 AM CD[place] [address] [place] [address] Maria Dolores Roe PA [address] [place] [address] 12/04/2025 10:30 AM CDT [facility] [address] [place] [address] Yves Lilly MD [address] [address] Scheduled Referrals Name Type Priority Associated Diagnoses Orde r Schedule Ambulatory referral to Infusion Therapy Referral Routine Osteoporosis Ordered: 01/23/2021 documented as of this encounter Visit Diagnoses Diagnosis Osteoporosis- Primary Osteoporosis, unspecified documented in this encounter Care Teams Buggyman Relationship Specialty Start Date End Date Allen Florence MD [address] [place] [address] PCP - General INTERNAL MEDICINE 07/07/19 05/10/22 Susie Loza, EMERYC [address] [place] [address] PCP - General PHYSICIAN ROLLING MACHINE OPERATOR 05/11/22 01/22/25 Maria Dolores Roe PA [address] [place] [address] PCP - General PHYSICIAN ROLLING MACHINE OPERATOR 01/23/25 documented as of this encounter
--- OUTSIDE RECORDS SUMMARY | 2025-03-19 10:08 | XMS_ITS | Encounter Summary ---
Author Organization [facility] Address [facility] [place] [address] Care Team Providers Care Instrument Mechanic Name Role Phone Allen [place] MD Primary Care Provider [phone] Susie Loza PA-C Primary Care Provider [phone] Maria Dolores Roe Primary Care Provider [phone] Reason for Visit * Reason Onset Date Comments Follow Up Call 08/04/2019 Encounter Details Date Type Department Care Team (Late st Contact Info) Description 08/04/2019 Telephone [facility] Med/Surg [address] [place] [address] Murray Barrientos, SUNITHA Follow Up [...] Assessment Author Status No 07/07/2019 3:03 PM SHOW DESIGN SUPERVISOR Activ e * 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 Answer Date of Assessment Author Status No 07/07/2019 3:03 PM SHOW DESIGN SUPERVISOR Activ e * Do you have serious [...] Info) Description 04/24/2025 10:00 AM CDT Appointment [facility] [address] [place] [address] Maria Dolores Roe PA [address] [place] [address] 12/04/2025 10:30 AM CDT Office Visit [facility] [address] [place] [address] Yves Lilly MD [address] [address] documented as of this encounter Visit Diagnoses Not on filedocumented in this encounter Care Teams Instrument Mechanic Relationship Specialty Start Date End Date Allen Florence MD [address] [place] [address] PCP - General INTERNAL MEDICINE 07/07/19 05/10/22 Susie Loza, PA-C [address] [place] [address] [address] [place] [address] PCP - General PHYSICIAN GUZZLER BUILDER 05/11/22 01/22/25 Maria Dolores Roe PA [address] [place] [address] PCP - General PHYSICIAN GUZZLER BUILDER 01/23/25 documented as of this encounter
--- OUTSIDE RECORDS SUMMARY | 2025-03-19 10:08 | XMS_ITS | Encounter Summary ---
Author Organization [facility] Address [facility] [place] [address] Care Team Providers Care Lieutenant/Deputy Name Role Phone Susie Loza PA-C Primary Care Provider [phone] Maria Dolores Roe Primary Care Provider [phone] Encounter Details Date Type Department Care Team (Late st Contact Info) Description 05/16/2023 Therapy Plan [facility] [address] [place], [place] [id number] Maria Dolores Roe PA [address] [place], [place] [id number] Social History Tobacco Use Types Packs/Day Years [...] Assessment Author Status No 07/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 Answer Date of Assessment Author Status No 07/07/2019 3:03 PM SOIL SORT WORKER Activ e * Do you have [...] Info) Description 04/24/2025 10:00 AM CDT Appointment [facility] [address] [place] [address] Maria Dolores Roe PA [address] [place] [address] 12/04/2025 10:30 AM CDT Office Visit [place] [facility] [address] [place] [address] Yves Lilly MD [address] [address] documented as of this encounter Visit Diagnoses Diagnosis Osteoporosis- Primary Osteoporosis, unspecified documented in this encounter Care Teams Lieutenant/Deputy Relationship Specialty Start Date End Date Susie Loza PA-C [address] [place], [place] [address] [place] [address] PCP - General PHYSICIAN SPECIAL PROGRAMS DIRECTOR 05/11/22 01/22/25 Maria Dolores Roe PA [address] [place] [address] PCP - General PHYSICIAN SPECIAL PROGRAMS DIRECTOR 01/23/25 documented as of this encounter
--- OUTSIDE RECORDS SUMMARY | 2025-03-19 10:08 | XMS_ITS | Data Portability ---
Author Organization [place] [facility], Main Office Address [address] [place] [address] Care Team Providers Care Tube Molder Fiberglass Name Role Phone MARGARITA WHITE Primary Care Provider MARGARITA WHITE Referring Provider NANCY THOMPSON Tube Molder Fiberglass Unavailable Assessment Encounter Date Assessment Date Assessment [...] DO Not Attach Compendium, Do Not Delete/merge, [id number] 4 14:36:52 Surgeries None recorded. Imaging XR, hand 2022 023 [email or web address] [facility] [place], [address], [place], [address], 3 11:52:15 Medication Orders Kenalog 10 mg/mL suspension for injection 2022 023 [email or web address] [id number], [address] [place] [address], [address], 3 17:31:37 ropivacaine (PF) 5 mg/mL (0.5 %) injection solution 2022 023 [email or web address] [id number], [address] [facility], [place], [address], 3 17:31:37 Patient TargetsNo targets recorded. Patient InstructionsNo instructions recorded. Reason for Referral None Reported. Results Created Date Observation Date Name Description Value Unit Range Abnormal Flag Note LastModifiedBy Organization Detail LastModifiedTime 03/17/20 22 XR, hand No observ ation record ed. [id number] [facility] [place] [address], [place], [address], 10/20/2022 12:48:51 08/10/20 23 XR, hand No observ ation record ed. [facility] [place] [address], [place], [address], 08/10/2023 11:15:32 Result Notes None recorded. Problems Name Problem SNOMED Code Status Onset Date Resolution Date Notes Provider Name and Address Organization Details Recorded Time Knee joint effusion 249668345 Active Not Available [facility] 3 12:46:18 Osteoarthr itis of knee 905215614 Active Not Available [facility] 3 12:46:18 Synovitis/ tenosynovi tis - hand 717927757 Active Not Available [facility] 3 12:46:19 Current tear of medial cartilage AND/OR meniscus of knee Active [facility] Available [facility] 3 12:46:19 Osteoarthr itis 784907613 Active Not Available [facility] 3 12:46:19 Pain in right hand 5408224077847 09 Active 07/27/ 2022 Not Available [facility] 3 12:46:19 Trigger finger of right hand 2023458647809 9101 Active 2021 Not Available [facility] 3 12:46:18 Osteoarthr itis of left knee joint 7014811933618 09 Active 2022 Evelia Hill, KHUSHBOO null, [place] [facility] [place] [employer] 3 11:12:27 Problem Notes None recorded. Medical Equipment None Reported. [...] Available Not Available No t Available OneTouch Ultra Test strips FOR DIABETES USE TO CHECK GLUCOSE ONCE DAILY active Not Available Not Available No t Available Kenalog 10 mg/mL suspension for injection in office 2022 active [facility]: 0003- 0494- 20 Not Available Not Available [...] Not Available Not Available Not Avai lable [place] 3 2020 active Not Available Not Available Not Avai lable B50 Balanced 2020 active Not Available Not Available Not Avai lable lidocaine (PF) 10 mg/mL (1 %) injection solution In office injection administe red by the provider 03/17 completed [facility]: 0409- 4276- 17 Not Available Not Available [...] %) injection solution in office 2022 active [facility] 32819 -064- 01 Not Available Not Available Not Available Fluarix Quad 4572-0357 (PF) 60 mcg (15 mcg x 4)/0.5 [...] Not Available No t Available Fluzone High-Dose 2019-20 (PF) 180 mcg/0.5 mL intramuscul ar syringe TO BE ADMINISTE RED BY PHARMACIS T FOR IMMUNIZAT ION 08/10 completed Not Available Not Available Not Available calcium 200 mg-vitamin D3 1.25 mcg-magnesi um 50 mg capsule Take by oral route. 2020 active Not Available Not Available Not Avai lable Vitals Date Recorded Body height Provider Name an d Address Organization Details Last Updated DateTime 10/24/2023 151.13 cm Beena Rivera [email or web address] 10/24/2023 15:48:25 Date Recorded Body height Provider Name an d Address Organization Details Last Updated DateTime 12/27/2022 149.86 cm Beena Rivera [email or web address] 12/27/2022 13:57:55 Date Recorded Body mass index (BMI) Body height Body weight Provider Name and Address Organization Details Last Updated DateTime 03/17/2022 24 kg/m2 149.86 cm 98506.49 g Not Available [facility] 10/20/2022 12:46:04 Date Recorded Body height Provider Name an d Address Organization Details Last Updated DateTime 04/07/2022 149.86 cm Not Available [facility] 12:46:03 Date Recorded Body height Body mass index (BMI) Body weight Provider Name and Address Organization Details Last Updated DateTime 08/10/2023 151.13 cm 22.8 kg/m2 22563.12 g Beena Rivera [facility] [employer] 08/10/2023 10:59:31 Social History None recorded. Functional Status Question Answer Note LastModified by Organizat ion Details LastModified Time What is your level of alcohol consumption? Occasional [id number] Information not available 10/20/2022 Mental Status None recorded. Family History Relationship Description Onset Age of this Age Resolved Age Notes LastModified by Organization Details LastModified Time Mother Family history of malignant neoplasm [id number] [id number] Not available 10/20/2022 12:45:46 Mother Hypertensive disorder [email or web address] [id number] Not available 10/20/2022 12:45:46 Medical History Condition Response BLINDNESS N KIDNEY STONES N CARPAL TUNNEL SYNDROME N MRSA N OTHER # 1 N LUNG DISEASE/DISORDER N HISTORY OF DRUG ABUSE N RADIATION / CHEMOTHERAPY N COPD N Other # 2 N BLOOD DISEASES N SURGERY N SCHIZOPHRENIA N DEPRESSION (INCLUDING POST ) N BOWEL PROBLEMS N STROKE/TIA N ULCERS N BENIGN PROSTATIC [...] HAVE YOU BEEN HOSPITALIZED OR SEEN IN [facility] IN THE PAST YEAR ? N BURSITIS [...] SNOMED-CT Code Diagnosis ICD10 Code Diagnosis Note [id number] Daniel Ramon MD [facility] [place] [address] [place] [address] 11/26/2020 00:00:00 11/26/2020 12:09:45 [id number] Daniel Ramon MD [facility] [place] [address] [place] [address] 12/03/2020 00:00:00 12/03/2020 15:18:12 [id number] Daniel Ramon MD [facility] [place] [address] [place] [address] 06/10/2021 00:00:00 06/10/2021 09:10:26 [id number] Daniel Ramon MD [facility] [place] [address] [place] [address] 06/19/2021 00:00:00 06/19/2021 15:16:48 [id number] Daniel Ramon MD [facility] [place] [address] [place] [address] 03/17/2022 00:00:00 03/17/2022 11:33:53 [id number] MD VAN Garrett[facility] [place] [address] [place] [address] 04/07/2022 00:00:00 04/07/2022 20:02:46 [id number] MD ALLYSSA GarrettS[facility] [place] [address] [place] [address] 12/27/2022 13:56:03 12/27/2022 14:49:13 Trigger finger of right hand 5590813700 3418005 M65.686 [id number] Daniel Ramon MD [facility] [place] [address] [place] [address] 08/10/2023 09:51:34 08/10/2023 11:52:15 Pain in right hand 4775869849 58643 M79.639 [id number] Daniel Ramon MD [facility] [place] [address] [place] [address] 10/24/2023 15:43:21 10/24/2023 17:37:34 Trigger finger of right hand 8552636336 2638012 M65.321 Health Concerns Section Related Observation LastModified by Organization Detai ls LastModified Time None Recorded Concern Status LastModified by Organization Details LastModified Time None Recorded Advance Directives Directive None Recorded Payers Insurance Date Sequence Insurance Name Policy Number Policy Resendez Covered Member ID Resendez Member ID Guarantor Name 11/01/2023 2 [employer] (MEDICARE SUPPLEMENT) Maribeth Tavarez [id number] Maribeth Tavarez 10/21/2023 1 [place] Maribeth Tavarez [id number] Maribeth Tavarez 10/21/2023 2 [employer] (MEDICARE SUPPLEMENT) Maribeth Tavarez [id number] Maribeth Tavarez 10/20/2022 [facility] Maribeth Tavarez OBGyn Episode No OBEpisode recorded.
--- OUTSIDE RECORDS SUMMARY | 2025-03-19 10:08 | XMS_ITS | Encounter Summary ---
Author Organization [facility] Address [facility] [place] [address] Care Team Providers Care Framing Inspector Name Role Phone Allen Florence MD Primary Care Provider [phone] Susie LozaC Primary Care Provider [phone] Maria Dolores Roe Primary Care Provider [phone] Encounter Details Date Type Department Care Team (Late st Contact Info) Description 01/20/2022 [email or web address] Message Enc [facility] [address] Mychart, [facility] Provider CT calcium score results Social History [...] Info) Description 04/24/2025 10:00 [place] [address] [place] [address] Maria Dolores Roe PA [address] [place] [address] 12/04/2025 10:30 AM CDT [facility] [address] [place] [address] Yves Lilly MD [facility]. [address] [address] documented as of this encounter Visit Diagnoses Not on filedocumented in this encounter Care Teams Framing Inspector Relationship Specialty Start Date End Date Allen Florence MD [address] [place] [address] PCP - General INTERNAL MEDICINE 07/07/19 05/10/22 Susie Loza PA-C [address] [place], [place] [address] [place] [address] PCP - General PHYSICIAN PULMONARY CARE NURSE 05/11/22 01/22/25 Maria Dolores Roe PA [address] [place] [address] PCP - General PHYSICIAN PULMONARY CARE NURSE 01/23/25 documented as of this encounter
--- OUTSIDE RECORDS SUMMARY | 2025-03-19 10:08 | XMS_ITS | Encounter Summary ---
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 Answer Date of Assessment Author Status No 07/07/2019 3:03 PM CHIEF DIETITIAN Activ e * Do you have serious [...] Info) Description 04/24/2025 10:00 AM CDT Appointment [facility] [address] [place] [address] Maria Dolores Roe PA [address] [place] [address] 12/04/2025 10:30 AM CDT [facility] [address] [place] [address] Yves Lilly MD [address] [address] documented as of this encounter Procedures Procedure Name Priority Date/Time Associated Diagnosis Comments CMP (ABSTRACTED LAB) Routine 10/30/2024 HEMOGLOBIN, GLYCOSYLATED Routine 10/30/2024 COMPREHENSIVE METABOLIC PANEL Routine 09/27/2023 LIPID PANEL Routine 09/27/2023 CBC, MANUAL DIFF Routine 09/27/2023 THYROID STIM HORMONE TSH Routine 09/27/2023 documented in this encounter Results * CMP (ABSTRACTED LAB) (10/30/2024) SODIUM S/P/B 138 POTASSIUM S/P/B 4.5 CHLORIDE S/P/B 100 CO2 27 BUN 16 CREATININE S/P/B 0.82 0.5 - 1.0 EGFR NON-AFR. AMER. 76 <=90 CALCIUM S/P/B 10.2 GLUCOSE 197 mg/dL TOTAL PROTEIN S/P/B 7.4 ALBUMIN S/P/B 4.6 3.5 - 5.0 AST 20 ALT 16 ALKALINE PHOSPHATASE S/P/B 77 BILIRUBIN TOTAL S/P/B 0.5 GLOBULIN 2.8 10/30/2024 [place] [facility] History Genericprovider LAB-OUTSIDE/ABST RACTED Edited Result - Final * HEMOGLOBIN, GLYCOSYLATED (10/30/2024) Pathologist [facility] HGB A1C 6.9 % 10/30/2024 Default History Genericprovider LABORATORY Edited Result - Final * (ABNORMAL) COMPREHENSIVE METABOLIC PANEL (09/27/2023) Pathologist [facility] SODIUM S/P/B 139 GLUCOSE 195 mg/dL AST 22 BUN 19 CREATININE S/P/B 1.03(A) 0.5 - 1.0 CALCIUM S/P/B 9.8 POTASSIUM S/P/B 4.2 CHLORIDE S/P/B 0.82 ALT 25 GFR ESTIMATE 77 Default History Genericprovider LABORATORY Edited Result - Final * LIPID PANEL (09/27/2023) Pathologist [facility] CHOLESTEROL 172 TRIGLYCERIDES 159 HDL 60 LDL (CALCULATED) 86 NON HDL CHOLESTEROL 112 Default History Genericprovider LABORATORY Edited Result - Final * CBC, MANUAL DIFF (09/27/2023) Pathologist [facility] WBC 9.6 HGB 15.8 HCT 46.1 PLT 257 us Default History Genericprovider LABORATORY Edited Result - Final * THYROID STIM HORMONE, TSH (09/27/2023) TSH 2.32 us Default History Genericprovider LABORATORY Edited Result - Final documented in this encounter Visit Diagnoses Not on filedocumented in this encounter Care Teams Automatic Shirring Machine Operator Relationship Specialty Start Date End Date Susie Loza PA-C [address] [place] [address] PCP - General PHYSICIAN SHIP DESIGN TEACHER 05/11/22 01/22/25 Maria Dolores Roe PA [address] [place] [address] PCP - General PHYSICIAN SHIP DESIGN TEACHER 01/23/25 documented as of this encounter
--- OUTSIDE RECORDS SUMMARY | 2025-03-19 10:08 | XMS_ITS | Encounter Summary ---
Author Organization [facility] Address [facility] [place] [address] Care Team Providers Care Heat Transfer Technician Name Role Phone Allen Florence MD Primary Care Provider [phone] Susie Loza PA-C Primary Care Provider [phone] Maria Dolores Roe Primary Care Provider [phone] Encounter Details Date Type Department Care Team (Latest Contact Info) Description 06/27/2018 Abstract [facility] Parmjit Melvin MD Social History [...] Info) Description 04/24/2025 10:00 AM CDT Appointment [facility] [address] [place] [address] Maria Dolores Roe PA [address] [place] [address] 12/04/2025 10:30 AM CDT [facility] [address] [place] [address] Yves Lilly MD [address] [address] documented as of this encounter Visit Diagnoses Not on filedocumented in this encounter Care Teams Heat Transfer Technician Relationship Specialty Start Date End Date Allen Florence MD [address] [place] [address] PCP - General INTERNAL MEDICINE 07/07/19 05/10/22 Susie Loza PA-C [address] [place] [address] PCP - General PHYSICIAN FOUNTAIN SERVER 05/11/22 01/22/25 Maria Dolores Roe PA [address] [place] [address] PCP - General PHYSICIAN FOUNTAIN SERVER 01/23/25 documented as of this encounter
--- OUTSIDE RECORDS SUMMARY | 2025-03-19 10:08 | XMS_ITS | Encounter Summary ---
Author Organization [facility] Address [facility] [place] [address] Care Team Providers Care Analytical Tech Name Role Phone Allen Florence MD Primary Care Provider [phone] Susie LozaC Primary Care Provider [phone] Maria Dolores Roe Primary Care Provider [phone] Encounter Details Date Type Department Care Team (Late st Contact Info) Description 07/11/2019 Hospital Follow-up Call [facility] Med/Surg [address] [place] [address] Corrie Gifford RN Social History [...] Assessment Author Status No 07/07/2019 3:03 PM ELECTRONIC SCALE TESTER Activ e * 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 Answer Date of Assessment Author Status No 07/07/2019 3:03 PM ELECTRONIC SCALE TESTER Activ e * Do you have serious [...] Info) Description 04/24/2025 10:00 AM [place] [address] [place] [address] Maria Dolores Roe PA [address] [place] [address] 12/04/2025 10:30 AM CDT [facility] [address] [place] [address] Yves Lilly MD [address] [address] documented as of this encounter Visit Diagnoses Not on filedocumented in this encounter Care Teams Analytical Tech Relationship Specialty Start Date End Date Allen Florence MD [address] [place] [address] PCP - General INTERNAL MEDICINE 07/07/19 05/10/22 Susie Loza PATonaC [address] [place], [place] [address] [place] [address] PCP - General PHYSICIAN HEAD OF SALES 05/11/22 01/22/25 Maria Dolores Roe PA [address] [place] [address] PCP - General PHYSICIAN HEAD OF SALES 01/23/25 documented as of this encounter
== END 2025-03-19 09:56 | disposition home or self-care (01) ==
PROVIDERS: PCP Physician Assistant Medical; Visit Provider Neurological Surgery
DX: M48.061 Spinal stenosis, lumbar region without neurogenic claudication (principal); M41.86 Other forms of scoliosis, lumbar region; M43.8X6 Other specified deforming dorsopathies, lumbar region; S32.058A Other fracture of fifth lumbar vertebra, initial encounter for closed fracture; R29.890 Loss of height; N20.0 Calculus of kidney; K57.30 Diverticulosis of large intestine without perforation or abscess without bleeding; X58.XXXA Exposure to other specified factors, initial encounter
CPT/HCPCS: 72131

== ENCOUNTER 2025-03-25 10:10 | Outpatient (CLI) | payer MEDICARE, OTHER, SELFPAY ==
--- OUTSIDE RECORDS SUMMARY | 2025-03-25 10:34 | XMS_ITS | Encounter Summary ---
Author Organization [facility] Address [facility] [place] [address] Care Team Providers Care Tire Buffer Name Role Phone Susie Loza PA-C Primary Care Provider [phone] Maria Dolores Roe Primary Care Provider [phone] Encounter Details Date Type Department Care Team (Late st Contact Info) Description 05/16/2023 Therapy Plan [facility] [address] [place], [place] [id number] Maria Dolores Roe PA [address] [place], [place] [phone] Social History Tobacco Use Types Packs/Day Years [...] Assessment Author Status No 07/07/2019 3:03 PM ENGINEER OF SYSTEM DEVELOPMENT Activ e * 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 Answer Date of Assessment Author Status No 07/07/2019 3:03 PM ENGINEER OF SYSTEM DEVELOPMENT Activ e * Do you have serious [...] Info) Description 04/24/2025 10:00 AM CDT Appointment [facility] [address] [place] [address] Maria Dolores Roe PA [address] [place] [address] 12/04/2025 10:30 AM CDT Office Visit [facility] [address] [place] [address] Yves Lilly MD [address] [address] documented as of this encounter Visit Diagnoses Diagnosis Osteoporosis- Primary Osteoporosis, unspecified documented in this encounter Care Teams Tire Buffer Relationship Specialty Start Date End Date Susie Loza PA-C [address] [place], [place] [address] [place] [address] PCP - General PHYSICIAN MEDICAL ASSISTANT CARDIOLOGY 05/11/22 01/22/25 Maria Dolores Roe PA [address] [place] [address] PCP - General PHYSICIAN MEDICAL ASSISTANT CARDIOLOGY 01/23/25 documented as of this encounter
--- OUTSIDE RECORDS SUMMARY | 2025-03-25 10:34 | XMS_ITS | Encounter Summary ---
Author Organization [facility] Address [facility] [place] [address] Care Team Providers Care Shotgun Shell Loading Machine Operator Name Role Phone Allen Florence MD Primary Care Provider [phone] Susie LozaC Primary Care Provider [phone] Maria Dolores Roe Primary Care Provider [phone] Encounter Details Date Type Department Care Team (Late st Contact Info) Description 05/07/2022 Oyster Message Enc [facility] [address] [facility] Provider Stress Test Results Social [...] Info) Description 04/24/2025 10:00 [place] [address] [place] [address] Maria Dolores Roe PA [address] [place] [address] 12/04/2025 10:30 AM CDT [facility] [address] [place] [address] Yves Lilly MD [facility]. [address] [address] documented as of this encounter Visit Diagnoses Not on filedocumented in this encounter Care Teams Shotgun Shell Loading Machine Operator Relationship Specialty Start Date End Date Allen Florence MD [address] [place] [address] PCP - General INTERNAL MEDICINE 07/07/19 05/10/22 Susie Loza PA-C [address] [place], [place] [address] [place] [address] PCP - General PHYSICIAN ROUGH RICE TENDER 05/11/22 01/22/25 Maria Dolores Roe PA [address] [place] [address] PCP - General PHYSICIAN ROUGH RICE TENDER 01/23/25 documented as of this encounter
--- OUTSIDE RECORDS SUMMARY | 2025-03-25 10:34 | XMS_ITS | Encounter Summary ---
Author Organization [facility] Address [facility] [place] [address] Care Team Providers Care Molding Utility Worker Name Role Phone Susie Loza PA-C Primary Care Provider [phone] Maria Dolores Roe Primary Care Provider [phone] Encounter Details Date Type Department Care Team (Late st Contact Info) Description 10/06/2022 Abstract [facility], [address] [address] Shanna Bailey MA Social History Tobacco Use [...] Coronavirus/COVID-19? No / Unsure 09/23/2022 2:21 PM SHOE PLANNER documented as of this encounter Functional Status * RETIRED Are you deaf or do you have serious difficulty hearing Answer Date of Assessment Author Status No 07/07/2019 3:03 PM SHOE PLANNER Activ e * 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 Answer Date of Assessment Author Status No 07/07/2019 3:03 PM SHOE PLANNER Activ e * Do you have serious [...] Info) Description 04/24/2025 10:00 AM CDT Appointment [facility] [address] [place] [address] Maria Dolores Roe PA [address] [place] [address] 12/04/2025 10:30 AM CDT Office Visit [facility] [address] [place] [address] Yves Lilly MD [address] [address] documented as of this encounter Procedures Procedure Name Priority Date/Time Associated Diagnosis Comments CBC (OUTSIDE LAB) Routine 09/23/2022 COMPREHENSIVE METABOLIC PANEL Routine 09/23/2022 LIPID PANEL Routine 09/23/2022 THYROID STIM HORMONE TSH Routine 09/23/2022 documented in this encounter Results * CBC (OUTSIDE LAB) (09/23/2022) Pathologist [facility] WBC 6.2 HGB 14.7 HCT 42.5 PLT 251 09/23/2022 us Default History Genericprovider LAB-OUTSIDE/ABST RACTED Final Result * THYROID STIM HORMONE, TSH (09/23/2022) Pathologist [facility] TSH 1.89 09/23/2022 us Default History Genericprovider LABORATORY Final Result * COMPREHENSIVE METABOLIC PANEL (09/23/2022) Pathologist [facility] SODIUM S/P/B 139 POTASSIUM S/P/B 4.6 CO2 [...] Result * LIPID PANEL (09/23/2022) Pathologist [facility] CHOLESTEROL 172 HDL 51 TRIGLYCERIDES 115 NON HDL CHOLESTEROL 121 LDL (CALCULATED) 100 09/23/2022 us Default History Genericprovider LABORATORY Final Result documented in this encounter Visit Diagnoses Not on filedocumented in this encounter Care Teams Molding Utility Worker Relationship Specialty Start Date End Date Susie Loza PA-C [address] [place] [address] PCP - General PHYSICIAN WOOL HAT FORMING MACHINE TENDER 05/11/22 01/22/25 Maria Dolores Roe PA [address] [place] [address] PCP - General PHYSICIAN WOOL HAT FORMING MACHINE TENDER 01/23/25 documented as of this encounter
--- OUTSIDE RECORDS SUMMARY | 2025-03-25 10:35 | XMS_ITS | Clinical Summary ---
Author Organization [facility] Address [address] [place] [address] Care Team Providers Care Stummel Selector Name Role Phone Teja Etienne Primary Care Provider [phone] Allergies No known active allergies Medications ALPRAZolam [...] total) by mouth daily. Active metFORMIN ER (GLUCOPHAGE-XR ) 500 MG 24 hr tablet Take 2 tablets (1,000 mg total) by mouth 2 (two) times a day. 04/19/20 22 Active aspirin EC (ECOTRIN) 81 MG tablet Take 1 tablet (81 mg total) by mouth daily. 04/28/20 22 Active vitamin C (ASCORBIC ACID) 1000 MG tablet Take 1 tablet (1,000 mg total) by mouth daily. Active rosuvastatin (CRESTOR) 20 MG tablet take 1 tablet by mouth nightly at bedtime 90 tablet 2 05/14/20 24 Active alendronate (FOSAMAX) 70 MG tablet Take 1 tablet (70 mg total) by mouth every 7 days. 11/20/19 25 Active gabapentin (NEURONTIN) 300 MG capsule Take 1 capsule (300 mg total) by mouth 3 (three) times daily. 11/13/19 25 Active magnesium oxide (MAG-OX) 250 MG tablet Take 1 tablet (250 mg total) by mouth daily. Active Potassium 99 MG tablet Take 1 tablet by mouth daily. Active Vitamin D3 125 mcg Tab Take 1 tablet (125 mcg total) by mouth daily. Active methylPREDNISo purnimahenri TAO, (MEDROL DOSEPAK) 4 MG tablet Take 1 tablet (4 mg total) by mouth 2 (two) times daily. Follow package directions 1 each 02/05/20 25 Active losartan (COZAAR) 25 MG tablet TAKE 1 TABLET (25 MG TOTAL) BY MOUTH DAILY. 90 tablet 2 03/21/20 25 Active losartan (COZAAR) 25 MG tablet TAKE 1 TABLET (25 MG TOTAL) BY MOUTH DAILY. 90 tablet 2 04/30/20 24 025 Discontinued Active Problems Problem Noted Date Diagnosed Date [...] - 03/06/2025 11:59 PM CDT Hospital Encounter [facility] MRI [id number] [place] [address] Teja Etienne PA Discharge Disposition: Home or Self Care (Routine Discharge) 03/06/2025 Travel 02/04/2025 7:16 AM CDT - 02/04/2025 9:22 AM CDT Emergency [facility] Emergency Room [address] [place] [address] Sybil Romero MD Hip Pain Discharge Disposition: Home or Self Care (Routine Discharge) 02/04/2025 Travel 01/31/2025 2:08 PM CDT - 01/31/2025 11:59 PM CDT Hospital Encounter [facility] Mammography [address] [place] [address] Teja Etienne PA Discharge Disposition: Home or Self Care (Routine Discharge) 01/31/2025 Travel 01/30/2025 8:15 AM CDT - 01/30/2025 11:59 PM CDT Hospital Encounter [facility] Outpatient Rehab [address] [place] [address] Tracy Hoang, Coleman Vasquez MD Back Pain Discharge Disposition: Home or Self Care (Routine Discharge) 01/30/2025 Travel 01/23/2025 12:59 PM CDT - 01/23/2025 11:59 PM CDT Hospital Encounter [facility] [address] [place] [address] Susie Loza PA-C Gerling, Savannah L, KENNEL STAFF MEMBER Back Pain Discharge Disposition: Home or Self Care (Routine Discharge) 01/23/2025 10:19 AM CDT - 01/23/2025 12:58 PM CDT Hospital Encounter [facility] [address] [address] Teja Etienne PA Discharge Disposition: Home or Self Care (Routine Discharge) 01/23/2025 Travel 01/21/2025 11:13 AM CDT - 01/21/2025 11:59 PM CDT Hospital Encounter [facility] [address] [place] [address] Susie Loza PA-C Gerling, Savannah L, KENNEL STAFF MEMBER Spinal Stenosis Discharge Disposition: Home or Self Care (Routine Discharge) 01/21/2025 Travel 01/16/2025 9:43 AM CDT - 01/16/2025 11:59 PM CDT Hospital Encounter [facility] [address] [place] [address] Tracy Hoang, Coleman Vasquez MD Back Pain Discharge Disposition: Home or Self Care (Routine Discharge) 01/16/2025 Travel 01/11/2025 9:28 AM CDT - 01/11/2025 11:59 PM CDT Hospital Encounter [facility] [address] [place] [address] Tracy Hoang, Coleman Vasquez MD Back Pain Discharge Disposition: Home or Self Care (Routine Discharge) 01/11/2025 Travel 01/09/2025 10:26 AM CDT - 01/09/2025 11:59 PM CDT Hospital Encounter [facility] [address] [place] [address] Tracy Hoang, Coleman Vasquez MD Back Pain Discharge Disposition: Home or Self Care (Routine Discharge) 01/09/2025 Travel 01/04/2025 2:07 PM CDT - 01/04/2025 11:59 PM CDT Hospital Encounter [facility] [address] [place] [address] Tracy Hoang, Coleman Vasquez MD Back Pain Discharge Disposition: Home or Self Care (Routine Discharge) 01/04/2025 Travel 01/02/2025 8:10 AM CDT - 01/02/2025 11:59 PM CDT Hospital Encounter [facility] [address] [place] [address] Tracy Hoang, Coleman Vasquez MD Back Pain Discharge Disposition: Home or Self Care (Routine Discharge) 01/02/2025 Travel 12/28/2024 11:12 AM CDT - 12/28/2024 11:59 PM CDT Hospital Encounter [facility] [address] [place] [address] Coleman Blackburn MD Gerling, Savannah L, PTA Back Pain Discharge Disposition: Home or Self Care (Routine Discharge) 12/28/2024 Travel 12/26/2024 10:30 AM CDT - 12/26/2024 11:59 PM CDT Hospital Encounter [facility] [address] [place] [address] Tracy Hoang, Coleman Vasquez MD Back Pain [...] Info) Description 04/24/2025 10:00 AM CDT Appointment [facility] [address] [place] [address] Teja Etienne PA [address] [place] [address] 12/04/2025 10:30 AM CDT [facility] [place] [facility] [address] [place] [address] Yvse Lilly MD Three [facility] [address] [place] [address] Health Maintenance Due Date Last Done Comments Colorectal Cancer Screening Colonoscopy (10 Years) 1955 Hepatitis C 1971 Zoster Vaccines (1 of 2) 2003 Annual Medicare Wellness Visit 2018 COVID-19 Vaccine ( season) 2024 10/16/2020, 09/18/2020 PHQ-2 (Physician [place]) 08/22/2024 DTaP, Tdap and Td Vaccines (2 [...] this topic Medical Devices Implanted Type Area Garnett Room Worker Device Identifier Shelf Expiration Date Model / Serial / Lot Clareon Iol Implanted:Qty: 1 on 11/01/2022 by Chan Cannon MD at [facility] Right: Eye [id number] 07/14/2025 / [id number] / Procedures Procedure Name Priority Date/Time Associated [...] 2:34 PM Narrative 03/08/2025 2:45 PM CDT [facility] [address] [place] [address] Procedure: MRI Abdomen with and without contrast [...] Procedure Note Declan James MD - 03/08/2025 [facility] [address] [place] [address] Procedure: MRI Abdomen with and without contrast [...] Symmetric in size and enhancement. Multiple bilateral [id number] simple cysts. There is a cyst at [...] By: Declan James MD, 03/08/2025 2:34 PM us Teja Etienne [place] MRI Final Result * URINALYSIS, AUTO, COMPLETE (02/04/2025 9:00 AM CDT) COLOR (U) YELLOW 02/04/2025 9:27 AM CDT [facility] TRANSPARENCY CLEAR 02/04/2025 9:27 AM CDT [facility] SPECIFIC GRAVITY (U) <1.005 1.000 - 1.030 02/04/2025 9:27 AM CDT [facility] U PH 6.0 5.0 - 9.0 02/04/2025 9:27 AM T [facility] LEUKOCYTES (U) NEGATIVE NEGATIVE 02/04/2025 9:27 AM CDT [facility] NITRITES NEGATIVE NEGATIVE 02/04/2025 9:27 AM T [facility] PROTEIN RANDOM (U) NEGATIVE NEGATIVE 02/04/2025 9:27 AM CDT [facility] GLUCOSE (U) NEGATIVE NEGATIVE 02/04/2025 9:27 AM T [facility] KETONES MG/DL (U) NEGATIVE NEGATIVE 02/04/2025 9:27 AM T [facility] BILIRUBIN (U) NEGATIVE NEGATIVE 02/04/2025 9:27 AM CDT [facility] BLOOD (U) NEGATIVE NEGATIVE 02/04/2025 9:27 AM CDT [facility] WBC/HPF 0-5 0 - 5 /HPF 02/04/2025 9:27 AM CDT [facility] RBC/HPF NONE SEEN 0 - 5 /HPF 02/04/2025 9:27 AM CDT [facility] EPI/HPF RENAL TUBULAR EPI CELLS /HPF 02/04/2025 9:27 AM CDT [facility] URINE SPECIMEN OBTAINED BY CLEAN CATCH PROCEDURE / Unknown 02/04/2025 9:00 AM CDT us Sybil Romero MD URINE ORDERABLES Final Result [facility] [address] [place] [address], [place] [phone] * XR HIP LT 2V (02/04/2025 8:03 AM CDT) Anatomical Region Laterality Modality Hip Radiographic Leslee ging 02/04/2025 8:17 AM CDT Impressions 02/04/2025 8:18 AM CDT IMPRESSION: 1. NO SIGNIFICANT RADIOGRAPHIC ABNORMALITY. Signed: Cristian Peng MD Referred By: Interpreted By: Cristian Peng MD, 02/04/2025 8:17 AM Narrative 02/04/2025 8:18 AM CDT [facility] [address] [facility] [place] [address] PATIENT NAME: MARIBETH TAVAREZ EXAM: Left hip 2 view DATE OF EXAM: 02/04/2025 COMPARISON EXAM: None INDICATION: Hip pain TECHNIQUE: AP and frog lateral left hip FINDINGS: No soft tissue abnormality. No evidence of acute fracture or focal lytic bone destructive lesion. Left hip joint space well maintained. No evidence of femoral head AP and. Procedure Note Cristian Peng MD - 02/04/2025 [facility] [address] [place] [address] PATIENT NAME: MARIBETH TAVAREZ EXAM: Left hip [...] 8:23 AM Narrative 02/04/2025 8:29 AM CDT [facility] [address] [place] [id number] DATE: 02/04/2025 7:56 AM INDICATION: Back pain. [...] Procedure Note Curry Winkler MD - 02/04/2025 [facility] [address] [place] [address] DATE: 02/04/2025 7:56 AM INDICATION: Back pain. [...] 3:10 PM Narrative 01/31/2025 3:14 PM CDT [facility] [address] [place] [address] EXAMINATION: Digital bilateral screening mammogram with 3-D [...] before 05/03/2025. Thank you for choosing the [facility] Screening Program. Referred By: TEJA ETIENNE Interpreted By: Nico Lassiter MD, 01/31/2025 1:06 PM Narrative 01/31/2025 1:12 PM CDT [facility] [address] [facility] [place] [address] EXAM: LUNG SCREENING LOW-DOSE CT THORAX WITHOUT CONTRAST DATE: 4.5 HISTORY: Asymptomatic patient with history of smoking [...] Procedure Note Nico Lassiter MD - 01/31/2025 [facility] [address] [facility] [place] [address] EXAM: LUNG SCREENING LOW-DOSE CT THORAX WITHOUT [...] before 05/03/2025. Thank you for choosing the [facility]Screening [facility]. Referred By: TEJA ETIENNE Interpreted [...] 8:50 AM Narrative 05/29/2024 8:51 AM CDT [facility] [address] [facility] [place] [address] EXAMINATION: BONE DENSITY/DEXA INDICATIONS: Other primary ovarian [...] Procedure Note Golden Kay MD - 05/29/2024 [facility] [address] [facility] [place] [address] EXAMINATION: BONE DENSITY/DEXA INDICATIONS: Other primary ovarian [...] Most Recently Relevant to Health Maintenance Insurance [facility] Advance Directives * Full Code (Latest Code Status on File) Date Activated Date Inactivated Comments 07/07/2019 2:21 PM 07/09/2019 2:39 PM Care Teams Stummel Selector Relationship Specialty Start Date End Date Teja Etienne PA [address] [place] [address] PCP - General PHYSICIAN BROWN STOCK WASHER 01/23/25
--- OUTSIDE RECORDS SUMMARY | 2025-03-25 10:35 | XMS_ITS | Encounter Summary ---
Author Organization [facility] Address [facility] [place] [address] Care Team Providers Care Clipping Marker Name Role Phone Allen Florence MD Primary Care Provider [phone] Susie Loza PA-C Primary Care Provider [phone] Maria Dolores Roe Primary Care Provider [phone] Encounter Details Date Type Department Care Team (Latest Contact Info) Description 06/27/2018 Abstract [facility] Parmjit Melvin MD Social History [...] 10:00 AM CDT Appointment [facility] [address] [place] [address] Maria Dolores Roe PA [address] [place] [address] 12/04/2025 10:30 AM CDT [facility] [address] [place] [address] Yves Lilly MD [address] [address] documented as of this encounter Visit Diagnoses Not on filedocumented in this encounter Care Teams Clipping Marker Relationship Specialty Start Date End Date Allen Florence MD [address] [place] [address] PCP - General INTERNAL MEDICINE 07/07/19 05/10/22 Susie Loza PA-C [address] [place] [address] PCP - General PHYSICIAN ENGINEERING TEST MECHANIC 05/11/22 01/22/25 Maria Dolores Roe PA [address] [place] [address] PCP - General PHYSICIAN ENGINEERING TEST MECHANIC 01/23/25 documented as of this encounter
--- OUTSIDE RECORDS SUMMARY | 2025-03-25 10:35 | XMS_ITS | Encounter Summary ---
Author Organization [facility] Address [facility] [place] [address] Care Team Providers Care Tree Fruit And Nut Farming Supervisor Name Role Phone Allen Florence MD Primary Care Provider [phone] Susie LozaC Primary Care Provider [phone] Maria Dolores Roe Primary Care Provider [phone] Encounter Details Date Type Department Care Team (Late st Contact Info) Description 01/20/2022 Constant Contact Message Enc [facility] [address] Mychart, [facility] Provider CT calcium score results Social History [...] Info) Description 04/24/2025 10:00 [place] [address] [place] [address] Maria Dolores Roe PA [address] [place] [address] 12/04/2025 10:30 AM CDT [facility] [address] [place] [address] Yves Lilly MD [facility]. [address] [address] documented as of this encounter Visit Diagnoses Not on filedocumented in this encounter Care Teams Tree Fruit And Nut Farming Supervisor Relationship Specialty Start Date End Date Allen Florence MD [address] [place] [address] PCP - General INTERNAL MEDICINE 07/07/19 05/10/22 Susie Loza PA-C [address] [place], [place] [address] [place] [address] PCP - General PHYSICIAN DEVELOPMENTAL PSYCHOLOGIST 05/11/22 01/22/25 Maria Dolores Roe PA [address] [place] [address] PCP - General PHYSICIAN DEVELOPMENTAL PSYCHOLOGIST 01/23/25 documented as of this encounter
--- OUTSIDE RECORDS SUMMARY | 2025-03-25 10:35 | XMS_ITS | Encounter Summary ---
Author Organization [facility] Address [facility] [place] [address] Care Team Providers Care Inspector And Clerk Name Role Phone Allen Florence MD Primary Care Provider [phone] Susie Loza PA-C Primary Care Provider [phone] Maria Dolores Roe Primary Care Provider [phone] Reason for Referral * Medication (Routine) - Closed Specialty Diagnoses / Procedures Referred By Contac t Referred To Contact INFUSION THERAPY / [facility] Infusion Therapy Diagnoses Osteoporosis Procedures ZOLEDRONIC ACID 1 MG [facility] [address] [place] [address] Phone: tel: [facility] [address] [place] [address] Phone: tel: Referral ID Status Reason Start Date Expiration Date V isits Requested Visits Authorized [id number] Closed Specialty Services 01/23/2021 02/22/2022 1 1 Encounter Details Date Type Department Care Team (Late st Contact Info) Description 01/23/2021 Therapy Plan [facility] [address] [place] [address] Maria Dolores Roe PA [address] [place] [address] Social History Tobacco Use Types Packs/Day Years [...] Assessment Author Status No 07/07/2019 3:03 PM LOW ALTITUDE AIR DEFENSE GUNNER Activ e * 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 Answer Date of Assessment Author Status No 07/07/2019 3:03 PM LOW ALTITUDE AIR DEFENSE GUNNER Activ e * Do you have serious [...] Info) Description 04/24/2025 10:00 AM CD[place] [address] [place] [address] Maria Dolores Roe PA [address] [place] [address] 12/04/2025 10:30 AM CDT [facility] [address] [place] [address] Yves Lilly MD [address] [address] Scheduled Referrals Name Type Priority Associated Diagnoses Orde r Schedule Ambulatory referral to Infusion Therapy Referral Routine Osteoporosis Ordered: 01/23/2021 documented as of this encounter Visit Diagnoses Diagnosis Osteoporosis- Primary Osteoporosis, unspecified documented in this encounter Care Teams Inspector And Clerk Relationship Specialty Start Date End Date Allen Florence MD [address] [place] [address] PCP - General INTERNAL MEDICINE 07/07/19 05/10/22 Susie Loza, EMERYC [address] [place] [address] PCP - General PHYSICIAN PREMIX OPERATOR CONCENTRATE 05/11/22 01/22/25 Maria Dolores Roe PA [address] [place] [address] PCP - General PHYSICIAN PREMIX OPERATOR CONCENTRATE 01/23/25 documented as of this encounter
--- OUTSIDE RECORDS SUMMARY | 2025-03-25 10:35 | XMS_ITS | Encounter Summary ---
Author Organization [facility] Address [facility] [place] [address] Care Team Providers Care Metal Miner Name Role Phone Allen Florence MD Primary Care Provider [phone] Susie LozaC Primary Care Provider [phone] Maria Dolores Roe Primary Care Provider [phone] Encounter Details Date Type Department Care Team (Late st Contact Info) Description 07/11/2019 Hospital Follow-up Call [facility] Med/Surg [address] [place] [address] Corrie Gifford RN Social History [...] Assessment Author Status No 07/07/2019 3:03 PM REFINERY OPERATOR VAPOR RECOVERY UNIT Activ e * 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 Answer Date of Assessment Author Status No 07/07/2019 3:03 PM REFINERY OPERATOR VAPOR RECOVERY UNIT Activ e * Do you have serious [...] Info) Description 04/24/2025 10:00 [place] [address] [place] [address] Maria Dolores Roe PA [address] [place] [address] 12/04/2025 10:30 AM CDT [facility] [facility] [address] [place] [address] Yves Lilly MD [address] [address] documented as of this encounter Visit Diagnoses Not on filedocumented in this encounter Care Teams Metal Miner Relationship Specialty Start Date End Date Allen Florence MD [address] [place] [address] PCP - General INTERNAL MEDICINE 07/07/19 05/10/22 Susie Loza PATonaC [address] [place], [place] [address] [place] [address] PCP - General PHYSICIAN PARTICIPANT ADMINISTRATOR 05/11/22 01/22/25 Maria Dolores Roe PA [address] [place] [address] PCP - General PHYSICIAN PARTICIPANT ADMINISTRATOR 01/23/25 documented as of this encounter
--- OUTSIDE RECORDS SUMMARY | 2025-03-25 10:35 | XMS_ITS | Encounter Summary ---
Author Organization [facility] Address [facility] [place] [address] Care Team Providers Care Modern Languages Professor Name Role Phone Allen Florence MD Primary Care Provider [phone] Susie Loza PA-C Primary Care Provider [phone] Maria Dolores Roe Primary Care Provider [phone] Encounter Details Date Type Department Care Team (Late st Contact Info) Description 04/30/2022 Therapy Plan [facility] [address] [place], [place] [phone] Maria Dolores Roe PA [address] [place], [place] [phone] Social History Tobacco Use Types Packs/Day Years [...] Assessment Author Status No 07/07/2019 3:03 PM PRIVATE CLIENT ADVISOR Activ e * 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 Answer Date of Assessment Author Status No 07/07/2019 3:03 PM PRIVATE CLIENT ADVISOR Activ e * Do you have serious [...] 10:00 AM CDT [place] [address] [place] [address] Maria Dolores Roe PA [address] [place] [address] 12/04/2025 10:30 AM CDT [facility] [address] [place] [address] Yves Lilly MD [address] [address] documented as of this encounter Visit Diagnoses Diagnosis Osteoporosis- Primary Osteoporosis, unspecified documented in this encounter Care Teams Modern Languages Professor Relationship Specialty Start Date End Date Allen Florence MD [address] [place] [address] PCP - General INTERNAL MEDICINE 07/07/19 05/10/22 Susie Loza PA-C [address] [place] [address] PCP - General PHYSICIAN PHYSICAL EDUCATION PROFESSOR 05/11/22 01/22/25 Maria Dolores Roe PA [address] [place] [address] PCP - General PHYSICIAN PHYSICAL EDUCATION PROFESSOR 01/23/25 documented as of this encounter
--- OUTSIDE RECORDS SUMMARY | 2025-03-25 10:35 | XMS_ITS | Encounter Summary ---
Author Organization [facility] Address [facility] [place] [address] Care Team Providers Care Metal Base Blocker Name Role Phone Allen Florence MD Primary Care Provider [phone] Susie Loza PA-C Primary Care Provider [phone] Maria Dolores Roe Primary Care Provider [phone] Reason for Visit * Reason Onset Date Comments Follow Up Call 08/04/2019 Encounter Details Date Type Department Care Team (Late st Contact Info) Description 08/04/2019 Telephone [facility] Med/Surg [address] [place] [address] Murray Barrientos, SUNITHA Follow Up [...] Assessment Author Status No 07/07/2019 3:03 PM GASTROINTESTINAL TECHNICIAN Activ e * 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 Answer Date of Assessment Author Status No 07/07/2019 3:03 PM GASTROINTESTINAL TECHNICIAN Activ e * Do you have [...] Info) Description 04/24/2025 10:00 AM CDT Appointment [facility] [address] [place] [address] Maria Dolores Roe PA [address] [place] [address] 12/04/2025 10:30 AM CDT Office Visit [facility] [address] [place] [address] Yves Lilly MD [address] [address] documented as of this encounter Visit Diagnoses Not on filedocumented in this encounter Care Teams Metal Base Blocker Relationship Specialty Start Date End Date Allen Florence MD [address] [place] [address] PCP - General INTERNAL MEDICINE 07/07/19 05/10/22 Susie Loza, PA-C [address] [place] [address] [address] [place] [address] PCP - General PHYSICIAN TRAFFIC POLICE OFFICER 05/11/22 01/22/25 Maria Dolores Roe PA [address] [place] [address] PCP - General PHYSICIAN TRAFFIC POLICE OFFICER 01/23/25 documented as of this encounter
--- OUTSIDE RECORDS SUMMARY | 2025-03-25 10:35 | XMS_ITS | Encounter Summary ---
Author Organization [facility] Address [facility] [place] [address] Care Team Providers Care Training And Development Manager Name Role Phone Susie Loza PA-C Primary Care Provider [phone] Maria Dolores Roe Primary Care Provider [phone] Encounter Details Date Type Department Care Team (Late st Contact Info) Description 10/28/2023 Abstract [facility], [address] [address] Shanna Bailey MA Social History Tobacco Use [...] Assessment Author Status No 07/07/2019 3:03 PM CAMPAIGN DIRECTOR Activ e * 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 Answer Date of Assessment Author Status No 07/07/2019 3:03 PM CAMPAIGN DIRECTOR Activ e * Do you have serious [...] Info) Description 04/24/2025 10:00 AM CDT Appointment [facility] [address] [place] [address] Maria Dolores Roe PA [address] [place] [address] 12/04/2025 10:30 AM CDT [facility] [address] [place] [address] Yves Lilly MD [address] [address] documented as of this encounter Procedures Procedure [...] BILIRUBIN TOTAL S/P/B 0.5 GLOBULIN 2.8 10/30/2024 [facility] History Genericprovider LAB-OUTSIDE/ABST RACTED Edited Result - Final * HEMOGLOBIN, GLYCOSYLATED (10/30/2024) Pathologist [facility] HGB A1C 6.9 % 10/30/2024 Default History Genericprovider LABORATORY Edited Result - Final * (ABNORMAL) COMPREHENSIVE METABOLIC PANEL (09/27/2023) Pathologist [facility] SODIUM S/P/B 139 GLUCOSE 195 mg/dL AST 22 BUN 19 CREATININE S/P/B 1.03(A) 0.5 - 1.0 CALCIUM S/P/B 9.8 POTASSIUM S/P/B 4.2 CHLORIDE S/P/B 0.82 ALT 25 GFR ESTIMATE 77 Default History Genericprovider LABORATORY Edited Result - Final * LIPID PANEL (09/27/2023) Pathologist [facility] CHOLESTEROL 172 TRIGLYCERIDES 159 HDL 60 LDL (CALCULATED) 86 NON HDL CHOLESTEROL 112 Default History Genericprovider LABORATORY Edited Result - Final * CBC, MANUAL DIFF (09/27/2023) Pathologist [facility] WBC 9.6 HGB 15.8 HCT 46.1 PLT 257 us Default History Genericprovider LABORATORY Edited Result - Final * THYROID STIM HORMONE, TSH (09/27/2023) TSH 2.32 us Default History Genericprovider LABORATORY Edited Result - Final documented in this encounter Visit Diagnoses Not on filedocumented in this encounter Care Teams Training And Development Manager Relationship Specialty Start Date End Date Susie Loza PA-C [address] [place] [address] PCP - General PHYSICIAN LIDAR SCIENTIST 05/11/22 01/22/25 Maria Dolores Roe PA [address] [place] [address] PCP - General PHYSICIAN LIDAR SCIENTIST 01/23/25 documented as of this encounter
[2025-03-25 11:45] LABS: INR 0.9; Prothrombin Time 11.9 Seconds (11.1-14.7)
[2025-03-25 11:46] LABS: Partial Thromboplastin Time 27.5 Seconds (22.3-36.8)
== END 2025-03-25 10:11 | disposition home or self-care (01) ==
LOC: ANHSURGERY 10:14
PROVIDERS: PCP Physician Assistant Medical; Visit Provider Neurological Surgery
DX: Z01.818 Encounter for other preprocedural examination (principal); M48.061 Spinal stenosis, lumbar region without neurogenic claudication
CPT/HCPCS: 36415; 85610; 85730; 86850; 86900; 86901

== ENCOUNTER 2025-04-05 06:31 | Day surgery (SDC) | payer MEDICARE, OTHER, SELFPAY ==
[2025-03-25 10:24] VITALS: BP 157/95; PULSE 104; RESP 16; TEMP 37.2; O2SAT 99; BMI 22.9
--- NOTE | 2025-03-25 10:46 | PC.NURSE ---
Report to the Outpatient Waiting Room, entrance under the green pavilion located off [facility], at time __6:00AM___ on date __04/05/25___. Planned Procedure Time: ____7:30AM____.? Time changes happen often and if your time is changed the preop area will call you the afternoon before. - You and your visitor will be asked to self-screen and do not enter if you have any COVID symptoms. Please call surgeon if you need to reschedule. - A mask is optional within the hospital at this time. Patients may have clear liquids (water, carbonated beverages, clear teas, apple juice) until 3 hours prior to surgery (4:30AM) with a maximum of 20 ounces. - No food from midnight until time of surgery and no smoking, or chewing tobacco (or any form of nicotine). No chewing gum, candy or mints. Take only the following medications with a SIP of water on the morning of surgery: ___DULOXETINE, GABAPENTIN DO NOT STOP ANY OF YOUR OTHER PRESCRIPTION MEDICATIONS PRIOR TO SURGERY EXCEPT THE FOLLOWING Hold all vitamins and supplements for 3 days per anesthesiologist.-LAST DOSE 04/01/25 Medications to discontinue per physician ___HOLD ALL NSAIDS(IBUPROBEN) AND ASPIRIN 7 DAYS PRE-OP PER DR REAL Date to take last dose 03/28/25 Please no make-up, nail frisian, hairspray, perfume, deodorant, or body powder the day of surgery.? No jewelry (including any body piercings) or valuables the day of surgery, leave them at home.? Please take a shower or bath the night before, or the morning of, surgery with an antibacterial soap.? Wear comfortable, loose fitting clothing.? - Jewelry must be removed prior to entering the operating room.? Rings and piercings that are not removed may be cut off. - The hospital will not accept responsibility for valuables.? - Please leave all valuables, including medications, at home the day of surgery. If you are going home after surgery, a licensed water tanker driver must drive you home.? - NO public transportation without another adult if you receive anesthesia. - We recommend that an adult stay with you for 24 hours following discharge. - We also recommend that you do not drive, make important decision, drink alcoholic beverages, or take any drugs that were not prescribed by your health care provider for at least 24 hours after your discharge time. Follow any additional instructions given to you from your surgeon. Telephone instructions given to ____PATIENT and asked if any additional questions and then verbalized understanding. Patient advised to call surgeon office or pre surgery nurse liaison [phone] if any additional questions.
[2025-03-25 11:00] VITALS: BP 168/88
--- NOTE | 2025-04-04 14:55 | WPDANESEPPF ---
Anes - Initial Pre Proc Eval Procedure: Operation Date: 04/05/25 07:30 Proposed Procedures p Stereotactic Computer Assisted Left L5-S1 Transforaminal Lumbar Interbody Fusion - Coleman Blackburn MD Date/Time: 04/04/25 14:55 Surgeon: Coleman Blackburn MD Pre Op Diagnosis: lumbar stenosis Patient Data Age: 69 Gender: F Height: 1.5 m Weight: 51.5 kg Last Vital Signs Temp 98.9 F 03/25/25 10:24 Pulse 104 H 03/25/25 10:24 Resp 16 03/25/25 10:24 BP 168/88 H 03/25/25 11:00 Pulse Ox 99 03/25/25 10:24 O2 Del Method Room Air 03/25/25 10:24 Allergies Allergy/AdvReac Type Severity Reaction Status Date / Time No Known Allergies Allergy Verified 03/29/25 10:50 Home Medications ?Medication ?Instructions ?Recorded ?Confirmed ?Type ascorbic acid (vitamin C) 1,000 mg 1 g PO DAILY 04/09/21 03/29/25 History tablet calcium carbonate (Calcium 600) 600 mg PO DAILY 04/09/21 03/29/25 History multivitamin,xt-sjwx-hgxwzspw 1 tablet PO DAILY 04/09/21 03/29/25 History losartan 25 mg tablet 25 mg PO DAILY 07/26/22 03/29/25 History blood sugar diagnostic (OneTouch #100 strips 07/29/23 03/29/25 Rx Ultra Test strips) aspirin 81 mg tablet,delayed 81 mg PO HS 09/26/23 03/29/25 History release (Adult Low Dose Aspirin) omega-3 fatty acids 1,000 mg PO DAILY 09/26/23 03/29/25 History vitamin B complex 1 tablet PO DAILY 03/26/24 03/29/25 History lancets 33 gauge #100 ea 05/21/24 03/29/25 Rx cholecalciferol (vitamin D3) 125 125 mcg PO DAILY 06/01/24 03/29/25 History mcg (5,000 unit) capsule magnesium 250 mg tablet 250 mg PO DAILY 06/01/24 03/29/25 History potassium 99 mg tablet 99 mg PO DAILY 06/01/24 03/29/25 History sennosides 8.6 mg tablet (senna) 8.6 mg PO BID PRN constipation #30 10/19/24 03/29/25 Rx tabs alendronate 70 mg tablet (Fosamax) 70 mg PO WEEKLY #12 tabs 11/19/24 03/29/25 Rx rosuvastatin 20 mg tablet 20 mg PO DAILY 12/26/24 03/29/25 History alprazolam 0.25 mg tablet 0.25 mg PO BID PRN Anxiety #60 tabs 02/04/25 03/29/25 Rx glimepiride 2 mg tablet 2 mg PO DAILY #90 tabs 03/08/25 03/29/25 Rx duloxetine 30 mg capsule,delayed 30 mg PO DAILY #90 caps 03/14/25 03/29/25 Rx release gabapentin 300 mg capsule See Rx Instructions .Route 03/15/25 03/29/25 Rx .COMPLEX #180 caps metformin 500 mg tablet,extended 1,000 mg (2 x 500 mg) PO BID #360 03/20/25 03/29/25 Rx release 24 hr tabs acetaminophen 500 mg tablet 1,000 mg PO Q6H PRN pain 03/25/25 03/29/25 History (Acetaminophen Pain Relief) ibuprofen 200 mg tablet (IBU-200) 400 mg PO Q6H PRN pain 03/25/25 03/29/25 History Results Review: All pre-operative results and documents have been reviewed as part of the pre-operative evaluation. [facility] Past Medical History Medical History Aortic ectasia, thoracic Pulmonary nodule Former smoker Lumbar stenosis Lumbar foraminal stenosis Murmur, cardiac Carotid bruit Acute UTI Osteoporosis Essential (primary) hypertension (09/09/16) Anxiety disorder, unspecified Hyperlipidemia Diabetes Surgical History Surgical History History of laminectomy No pertinent past surgical history Family History Family History Mother Pancreatic cancer Father Sibling No problems noted. Social History Social History (Updated 03/29/25 @ 11:23 by Mahnaz Aguilar CMA) Years smoked: 30 Smoking status: Former smoker Tobacco type: cigarettes Second hand tobacco smoke exposure: Yes Smoking end date: 02/19/19 Alcohol intake: current Drinks per week: 2 Alcohol use details: per week Substance use: never Substance use type: does not use Do You Feel Safe in your Home?: Yes Lack of Transportation: No Lack of Food: Never True Current Housing: I Have Housing Concerned About Future Housing: No Difficulty Paying Gas/Electric Bills: No Difficulty Paying for Meds: No Currently Unemployed: No Education: High School Diploma/GED Difficulty w/ Childcare or Family Care: No Living arrangements: with family Additional living arrangements comments: [facility] 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 Informed Consent: The patient's anesthetic plan and its attendant risks and benefits were discussed with the patient/family/POA. Questions were solicited and answers provided to the satisfaction of the patient/family/POA.
[2025-04-05] VITALS (14 sets, daily range): BP systolic 99–138; BP diastolic 52–90; PULSE 80–115; RESP 10–20; TEMP 35.8–37; O2SAT 93–100
--- NOTE | ~2025-04-05 | XR_ITS ---
Indication:left L5-S1 transforaminal lumbar interbody fusion TECHNIQUE: Fluoroscopy used during left L5-S1 transforaminal lumbar interbody fusion performed by Dr Maguire [Coleman Blackburn MD] on 04/05/2025. Fluoroscopy time is 18 seconds with 2 fluoroscopic images captu red. FINDINGS: Correlate with procedure note. IMPRESSION: Fluoroscopy used during left L5-S1 transforaminal lumbar interbody fusion. Reviewed, dictated and finalized at location A.
--- OUTSIDE RECORDS SUMMARY | 2025-04-05 06:34 | XMS_ITS | Encounter Summary ---
Author Organization [facility] Address [facility] [place] [address] Care Team Providers Care Inkjet Operator Name Role Phone Allen Florence MD Primary Care Provider [phone] Susie LozaC Primary Care Provider [phone] Maria Dolores Roe Primary Care Provider [phone] Encounter Details Date Type Department Care Team (Late st Contact Info) Description 01/20/2022 [employer] Message Enc [facility] [address] Mychart, [facility] [place] Provider CT [...] Info) Description 04/24/2025 10:00 [place] [address] [place] [address] Maria Dolores Roe PA [address] [place] [address] 12/04/2025 10:30 AM CDT [facility] [address] [place] [address] Yves Lilly MD [facility]. [address] [address] documented as of this encounter Visit Diagnoses Not on filedocumented in this encounter Care Teams Inkjet Operator Relationship Specialty Start Date End Date Allen Florence MD [address] [place] [address] PCP - General INTERNAL MEDICINE 07/07/19 05/10/22 Susie Loza PA-C [address] [place], [place] [address] [place] [address] PCP - General PHYSICIAN NAIL SETTER 05/11/22 01/22/25 Maria Dolores Roe PA [address] [place] [address] PCP - General PHYSICIAN NAIL SETTER 01/23/25 documented as of this encounter
--- OUTSIDE RECORDS SUMMARY | 2025-04-05 06:34 | XMS_ITS | Encounter Summary ---
Author Organization [facility] Address [facility] [place] [address] Care Team Providers Care Director Of Intercollegiate Athletics Name Role Phone Allen Florence MD Primary Care Provider [phone] Susie Loza PA-C Primary Care Provider [phone] Maria Dolores Roe Primary Care Provider [phone] Encounter Details Date Type Department Care Team (Latest Contact Info) Description 06/27/2018 Abstract [facility] Medical [facility] Parmjit Melvin MD Social History [...] Info) Description 04/24/2025 10:00 AM CDT Appointment [facility] [address] [place] [address] Maria Dolores Roe PA [address] [place] [address] 12/04/2025 10:30 AM CDT [facility] [address] [place] [address] Yves Lilly MD [address] [address] documented as of this encounter Visit Diagnoses Not on filedocumented in this encounter Care Teams Director Of Intercollegiate Athletics Relationship Specialty Start Date End Date Allen Florence MD [address] [place] [address] PCP - General INTERNAL MEDICINE 07/07/19 05/10/22 Susie Loza PA-C [address] [place] [address] PCP - General PHYSICIAN HOSPITAL LABORATORY TECHNICIAN 05/11/22 01/22/25 Maria Dolores Roe PA [address] [place] [address] PCP - General PHYSICIAN HOSPITAL LABORATORY TECHNICIAN 01/23/25 documented as of this encounter
--- OUTSIDE RECORDS SUMMARY | 2025-04-05 06:34 | XMS_ITS | Encounter Summary ---
Author Organization [facility] Address [facility] [place] [address] Care Team Providers Care Malt Roaster Name Role Phone Susie Loza PA-C Primary Care Provider [phone] Maria Dolores Roe Primary Care Provider [phone] Encounter Details Date Type Department Care Team (Late st Contact Info) Description 10/06/2022 Abstract [facility], [address] [address] Shanna Bailey MA Social History Tobacco Use [...] Coronavirus/COVID-19? No / Unsure 09/23/2022 2:21 PM CONSULTANT NURSE documented as of this encounter Functional Status * RETIRED Are you deaf or do you have serious difficulty hearing Answer Date of Assessment Author Status No 07/07/2019 3:03 PM CONSULTANT NURSE Activ e * 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 Answer Date of Assessment Author Status No 07/07/2019 3:03 PM CONSULTANT NURSE Activ e * Do you have serious [...] Info) Description 04/24/2025 10:00 AM CDT Appointment [facility] [address] [place] [address] Maria Dolores Roe PA [address] [place] [address] 12/04/2025 10:30 AM CDT Office Visit [facility] [address] [place] [address] Yves Lilly MD [address] [address] documented as of this encounter Procedures Procedure [...] on filedocumented in this encounter Care Teams Malt Roaster Relationship Specialty Start Date End Date Susie Loza PA-C [address] [place] [address] PCP - General PHYSICIAN PROCESS ENGINEERING TECHNICIAN 05/11/22 01/22/25 Maria Dolores Roe PA [address] [place] [address] PCP - General PHYSICIAN PROCESS ENGINEERING TECHNICIAN 01/23/25 documented as of this encounter
--- OUTSIDE RECORDS SUMMARY | 2025-04-05 06:34 | XMS_ITS | Encounter Summary ---
Author Organization [facility] Address [facility] [place] [address] Care Team Providers Care Turning Machine Operator Helper Name Role Phone Susie Loza PA-C Primary Care Provider [phone] Maria Dolores Roe Primary Care Provider [phone] Encounter Details Date Type Department Care Team (Late st Contact Info) Description 10/28/2023 Abstract [facility], [address] [address] Shanna Bailey MA Social History Tobacco Use [...] Assessment Author Status No 07/07/2019 3:03 PM RECREATION SUPERINTENDENT Activ e * 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 Answer Date of Assessment Author Status No 07/07/2019 3:03 PM RECREATION SUPERINTENDENT Activ e * Do you have serious [...] Info) Description 04/24/2025 10:00 AM CDT Appointment [facility] [address] [place] [address] Maria Dolores Roe PA [address] [place] [address] 12/04/2025 10:30 AM CDT [facility] [address] [place] [address] Yves Lilly MD [address] [address] documented as of this encounter Procedures Procedure [...] BILIRUBIN TOTAL S/P/B 0.5 GLOBULIN 2.8 10/30/2024 [facility] History Genericprovider LAB-OUTSIDE/ABST RACTED Edited Result - [...] on filedocumented in this encounter Care Teams Turning Machine Operator Helper Relationship Specialty Start Date End Date Susie Loza PA-C [address] [place] [address] PCP - General PHYSICIAN RETURN AGENT 05/11/22 01/22/25 Maria Dolores Roe PA [address] [place] [address] PCP - General PHYSICIAN RETURN AGENT 01/23/25 documented as of this encounter
--- OUTSIDE RECORDS SUMMARY | 2025-04-05 06:34 | XMS_ITS | Encounter Summary ---
Author Organization [facility] Address [facility] [place] [address] Care Team Providers Care Mercantile Agent Name Role Phone Allen Florence MD Primary Care Provider [phone] Susie Loza PA-C Primary Care Provider [phone] Maria Dolores Roe Primary Care Provider [phone] Encounter Details Date Type Department Care Team (Late st Contact Info) Description 04/30/2022 Therapy Plan [facility] [address] [place], [place] [phone] Maria Dolores Roe PA [address] [place], [place] [id number] Social History Tobacco Use Types Packs/Day Years [...] Assessment Author Status No 07/07/2019 3:03 PM NEW ORDER CLERK Activ e * 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 Answer Date of Assessment Author Status No 07/07/2019 3:03 PM NEW ORDER CLERK Activ e * Do you have serious [...] Info) Description 04/24/2025 10:00 AM CDT Appoint[place] [address] [place] [address] Maria Dolores Roe PA [address] [place] [address] 12/04/2025 10:30 AM CDT [facility] [address] [place] [address] Yves Lilly MD [address] [address] documented as of this encounter Visit Diagnoses Diagnosis Osteoporosis- Primary Osteoporosis, unspecified documented in this encounter Care Teams Mercantile Agent Relationship Specialty Start Date End Date Allen Florence MD [address] [place] [address] PCP - General INTERNAL MEDICINE 07/07/19 05/10/22 Susie Loza PA-C [address] [place] [address] PCP - General PHYSICIAN PANEL BEATER 05/11/22 01/22/25 Maria Dolores Roe PA [address] [place] [address] PCP - General PHYSICIAN PANEL BEATER 01/23/25 documented as of this encounter
--- OUTSIDE RECORDS SUMMARY | 2025-04-05 06:34 | XMS_ITS | Encounter Summary ---
Author Organization [facility] Address [facility] [place] [address] Care Team Providers Care Measurer Name Role Phone Susie Loza PA-C Primary Care Provider [phone] Maria Dolores Roe Primary Care Provider [phone] Encounter Details Date Type Department Care Team (Late st Contact Info) Description 05/16/2023 Therapy Plan [facility] [address] [place], [place] [phone] Maria Dolores Roe PA [address] [place], [place] [phone] Social History Tobacco Use Types Packs/Day Years [...] Author Status No 07/07/2019 3:03 PM PRIVATE TUTORS AND TEACHERS Activ e * 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 Answer Date of Assessment Author Status No 07/07/2019 3:03 PM PRIVATE TUTORS AND TEACHERS Activ e * Do you have serious [...] Description 04/24/2025 10:00 AM CDT Appointment [facility] [address] [place] [address] Maria Dolores Roe PA [address] [place] [address] 12/04/2025 10:30 AM CDT Office Visit [facility] [address] [place] [address] Yves Lilly MD [address] [address] documented as of this encounter Visit Diagnoses Diagnosis Osteoporosis- Primary Osteoporosis, unspecified documented in this encounter Care Teams Measurer Relationship Specialty Start Date End Date Susie Loza PA-C [address] [place], [place] [address] [place] [address] PCP - General PHYSICIAN BRINE SUPERVISOR 05/11/22 01/22/25 Maria Dolores Roe PA [address] [place] [address] PCP - General PHYSICIAN BRINE SUPERVISOR 01/23/25 documented as of this encounter
--- OUTSIDE RECORDS SUMMARY | 2025-04-05 06:34 | XMS_ITS | Encounter Summary ---
Author Organization [facility] Address [facility] [place] [address] Care Team Providers Care Communication Clerk Name Role Phone Allen Florence MD Primary Care Provider [phone] Susie Loza PA-C Primary Care Provider [phone] Maria Dolores Roe Primary Care Provider Reason for Visit * Reason Onset Date Comments Follow Up Call 08/04/2019 Encounter Details Date Type Department Care Team (Late st Contact Info) Description 08/04/2019 Telephone [facility] Med/Surg [address] [place] [address] Murray Barrientos, SUNITHA Follow Up [...] Assessment Author Status No 07/07/2019 3:03 PM MIXOLOGIST Activ e * 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 Answer Date of Assessment Author Status No 07/07/2019 3:03 PM MIXOLOGIST Activ e * Do you have serious [...] 10:00 AM CDT Appointment [facility] [address] [place] [address] Maria Dolores Roe PA [address] [place] [address] 12/04/2025 10:30 AM CDT Office Visit [facility] [address] [place] [address] Yves Lilly MD [address] [address] documented as of this encounter Visit Diagnoses Not on filedocumented in this encounter Care Teams Communication Clerk Relationship Specialty Start Date End Date Allen Florence MD [address] [place] [address] PCP - General INTERNAL MEDICINE 07/07/19 05/10/22 Susie Loza, PA-C [address] [place] [address] [address] [place] [address] PCP - General PHYSICIAN DRESS FINISHER 05/11/22 01/22/25 Maria Dolores Roe PA [address] [place] [address] PCP - General PHYSICIAN DRESS FINISHER 01/23/25 documented as of this encounter
--- OUTSIDE RECORDS SUMMARY | 2025-04-05 06:34 | XMS_ITS | Encounter Summary ---
Author Organization [facility] Address [facility] [place] [address] Care Team Providers Care Skein Washer Name Role Phone Allen Florence MD Primary Care Provider [phone] Susie LozaC Primary Care Provider [phone] Maria Dolores Roe Primary Care Provider [phone] Encounter Details Date Type Department Care Team (Late st Contact Info) Description 07/11/2019 Hospital Follow-up Call [facility] Med/Surg [address] [place] [address] Corrie Gifford RN Social History [...] Assessment Author Status No 07/07/2019 3:03 PM SUPERVISOR LANDSCAPE Activ e * 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 Answer Date of Assessment Author Status No 07/07/2019 3:03 PM SUPERVISOR LANDSCAPE Activ e * Do you have serious [...] Info) Description 04/24/2025 10:00 AM CD[place] [address] [place] [address] Maria Dolores Roe PA [address] [place] [address] 12/04/2025 10:30 AM CDT [facility] [address] [place] [phone] Yves Lilly MD [address] [address] documented as of this encounter Visit Diagnoses Not on filedocumented in this encounter Care Teams Skein Washer Relationship Specialty Start Date End Date Allen Florence MD [address] [place] [address] PCP - General INTERNAL MEDICINE 07/07/19 05/10/22 Susie Loza PATonaC [address] [place], [place] [address] [place] [address] PCP - General PHYSICIAN DOCK OR PIER LABORER 05/11/22 01/22/25 Maria Dolores Roe PA [address] [place] [address] PCP - General PHYSICIAN DOCK OR PIER LABORER 01/23/25 documented as of this encounter
--- OUTSIDE RECORDS SUMMARY | 2025-04-05 06:34 | XMS_ITS | Encounter Summary ---
Author Organization [facility] Address Counts include 234 beds at the [facility] [place] [address] Care Team Providers Care Enamel Dipper Name Role Phone Allen Florence MD Primary Care Provider [phone] Susie LozaC Primary Care Provider [phone] Maria Dolores Roe Primary Care Provider [phone] Encounter Details Date Type Department Care Team (Late st Contact Info) Description 05/07/2022 XtremIO Message Enc [facility] [address] [facility] Provider Stress Test Results Social [...] Info) Description 04/24/2025 10:00 [place] [address] [place] [address] Maria Dolores Roe PA [address] [place] [address] 12/04/2025 10:30 AM CDT [facility] [address] [place] [address] Yves Lilly MD [facility] [place] [facility]. [address] [address] documented as of this encounter Visit Diagnoses Not on filedocumented in this encounter Care Teams Enamel Dipper Relationship Specialty Start Date End Date Allen Florence MD [address] [place] [address] PCP - General INTERNAL MEDICINE 07/07/19 05/10/22 Susie Loza PA-C [address] [place], [place] [address] [place] [address] PCP - General PHYSICIAN TECHNOLOGY TRAINING ASSOCIATE 05/11/22 01/22/25 Maria Dolores Roe PA [address] [place] [address] PCP - General PHYSICIAN TECHNOLOGY TRAINING ASSOCIATE 01/23/25 documented as of this encounter
--- OUTSIDE RECORDS SUMMARY | 2025-04-05 06:34 | XMS_ITS | Clinical Summary ---
Author Organization [facility] Address [address] [place] [address] Care Team Providers Care Animal Therapist Name Role Phone Teja Etienne Primary Care Provider [phone] Allergies No known active allergies Medications ALPRAZolam [...] - 03/06/2025 11:59 PM CDT Hospital Encounter [facility] MRI [id number] [place] [address] Teja Etienne PA Discharge Disposition: Home or Self Care (Routine Discharge) 03/06/2025 Travel 02/04/2025 7:16 AM CDT - 02/04/2025 9:22 AM CDT Emergency [facility] Emergency Room [address] [place] [address] Sybil Romero MD Hip Pain Discharge Disposition: Home or Self Care (Routine Discharge) 02/04/2025 Travel 01/31/2025 2:08 PM CDT - 01/31/2025 11:59 PM CDT Hospital Encounter [facility] Mammography [address] [place] [address] Teja Etienne PA Discharge Disposition: Home or Self Care (Routine Discharge) 01/31/2025 Travel 01/30/2025 8:15 AM CDT - 01/30/2025 11:59 PM CDT Hospital Encounter [facility] Outpatient Rehab [address] [place] [address] Tracy Hoang, Coleman Vasquez MD Back Pain Discharge Disposition: Home or Self Care (Routine Discharge) 01/30/2025 Travel 01/23/2025 12:59 PM CDT - 01/23/2025 11:59 PM CDT Hospital Encounter [facility] [address] [place] [address] Susie Loza PA-C Gerling, Savannah L, CARPET WEAVER Back Pain Discharge Disposition: Home or Self Care (Routine Discharge) 01/23/2025 10:19 AM CDT - 01/23/2025 12:58 PM CDT Hospital Encounter [facility] [address] [address] Teja Etienne PA Discharge Disposition: Home or Self Care (Routine Discharge) 01/23/2025 Travel 01/21/2025 11:13 AM CDT - 01/21/2025 11:59 PM CDT Hospital Encounter [facility] [address] [place] [address] Susie Loza PA-C Gerling, Savannah L, CARPET WEAVER Spinal Stenosis Discharge Disposition: Home or Self Care (Routine Discharge) 01/21/2025 Travel 01/16/2025 9:43 AM CDT - 01/16/2025 11:59 PM CDT Hospital Encounter [facility] [address] [place] [address] Tracy Hoang, Coleman Vasquez MD Back Pain Discharge Disposition: Home or Self Care (Routine Discharge) 01/16/2025 Travel 01/11/2025 9:28 AM CDT - 01/11/2025 11:59 PM CDT Hospital Encounter [facility] [address] [place] [address] Tracy Hoang, Coleman Vasquez MD Back Pain Discharge Disposition: Home or Self Care (Routine Discharge) 01/11/2025 Travel 01/09/2025 10:26 AM CDT - 01/09/2025 11:59 PM CDT Hospital Encounter [facility] Outpatient Rehab [address] [facility] [address] Tracy Hoang, Coleman Vasquez MD Back Pain Discharge Disposition: Home or Self Care (Routine Discharge) 01/09/2025 Travel 01/04/2025 2:07 PM CDT - 01/04/2025 11:59 PM CDT Hospital Encounter [facility] Outpatient [facility]hab [address] [place] [address] Tracy Hoang, Coleman Vasquez MD Back Pain Discharge Disposition: Home or Self Care (Routine Discharge) 01/04/2025 Travel from Last 3 Months Immunizations Immunization [...] Info) Description 04/24/2025 10:00 AM CDT Appointment [facility] [address] [place] [address] Teja Etienne PA [address] [place] [address] 12/04/2025 10:30 AM CDT Office [facility] [address] [place] [address] Yves Lilly MD [address] [address] Health Maintenance Due Date Last Done Comments Colorectal Cancer Screening Colonoscopy (10 Years) 1955 Hepatitis C 1971 Zoster Vaccines (1 of 2) 2003 Annual Medicare Wellness Visit 2018 COVID-19 Vaccine (3 - season) 2024 10/16/2020, 09/18/2020 PHQ-2 (Physician [place]) 08/22/2024 DTaP, Tdap and Td Vaccines (2 [...] this topic Medical Devices Implanted Type Area Traffic Signal Repairer Device Identifier Shelf Expiration Date Model / Serial / Lot Danielaeon Iol Implanted:Qty: 1 on 11/01/2022 by Chan Cannon MD at [facility] Right: Eye [id number] 07/14/2025 / [id number] / Procedures Procedure Name Priority Date/Time Associated [...] 2:34 PM Narrative 03/08/2025 2:45 PM CDT [facility] [address] [facility] [place] [address] Procedure: MRI Abdomen with and without contrast [...] Procedure Note Declan James MD - 03/08/2025 [facility] [address] [facility] [place] [address] Procedure: MRI Abdomen with and without contrast [...] Symmetric in size and enhancement. Multiple bilateral [id number] simple cysts. There is a cyst at [...] James MD, 03/08/2025 2:34 PM us Teja MORENO MRI Final Result * URINALYSIS, AUTO, COMPLETE (02/04/2025 9:00 AM CDT) COLOR (U) YELLOW 02/04/2025 9:27 AM CDT [facility] TRANSPARENCY CLEAR 02/04/2025 9:27 AM CDT [facility] SPECIFIC GRAVITY (U) <1.005 1.000 - 1.030 02/04/2025 9:27 AM CDT [facility] U PH 6.0 5.0 - 9.0 02/04/2025 9:27 AM CDT [facility] LEUKOCYTES (U) NEGATIVE NEGATIVE 02/04/2025 9:27 AM CDT [facility] NITRITES NEGATIVE NEGATIVE 02/04/2025 9:27 AM CDT [facility] PROTEIN RANDOM (U) NEGATIVE NEGATIVE 02/04/2025 9:27 AM CDT [facility] GLUCOSE (U) NEGATIVE NEGATIVE 02/04/2025 9:27 AM CDT [facility] KETONES MG/DL (U) NEGATIVE NEGATIVE 02/04/2025 9:27 AM CDT [facility] BILIRUBIN (U) NEGATIVE NEGATIVE 02/04/2025 9:27 AM CDT [facility] BLOOD (U) NEGATIVE NEGATIVE 02/04/2025 9:27 AM T [facility] WBC/HPF 0-5 0 - 5 /HPF 02/04/2025 9:27 AM CDT [facility] RBC/HPF NONE SEEN 0 - 5 /HPF 02/04/2025 9:27 AM CDT [facility] EPI/HPF RENAL TUBULAR EPI CELLS /HPF 02/04/2025 9:27 AM T [facility] URINE SPECIMEN OBTAINED BY CLEAN CATCH PROCEDURE / Unknown 02/04/2025 9:00 AM CDT us Sybil Romero MD URINE ORDERABLES Final Result [facility] [address] [place] [address], [place] [phone] * XR HIP LT 2V (02/04/2025 8:03 AM CDT) Anatomical Region Laterality Modality Hip Radiographic Leslee ging 02/04/2025 8:17 AM CDT Impressions 02/04/2025 8:18 AM CDT IMPRESSION: 1. NO SIGNIFICANT RADIOGRAPHIC ABNORMALITY. Signed: Cristian Peng MD Referred By: Interpreted By: Cristian Peng MD, 02/04/2025 8:17 AM Narrative 02/04/2025 8:18 AM CDT [facility] [address] [facility] [place] [place] [address] PATIENT NAME: MARIBETH TAVAREZ EXAM: Left hip 2 view DATE OF EXAM: 02/04/2025 COMPARISON EXAM: None INDICATION: Hip pain TECHNIQUE: AP and frog lateral left hip FINDINGS: No soft tissue abnormality. No evidence of acute fracture or focal lytic bone destructive lesion. Left hip joint space well maintained. No evidence of femoral head AP and. Procedure Note Cristian Peng MD - 02/04/2025 [facility] [address] [place] [address] PATIENT NAME: MARIBETH TAVAREZ EXAM: Left hip [...] 8:23 AM Narrative 02/04/2025 8:29 AM CDT [facility] [address] [place] [address] DATE: 02/04/2025 7:56 AM INDICATION: Back pain. [...] Procedure Note Curry Winkler MD - 02/04/2025 [facility] [address] [place] [address] DATE: 02/04/2025 7:56 AM INDICATION: Back pain. [...] 4. Nonobstructing nephrolithiasis. 5. Diverticulosis. Ordered By: SBYIL ROMERO Interpreted By: Curry Winkler MD, 02/04/2025 [...] 3:10 PM Narrative 01/31/2025 3:14 PM CDT [facility] [address] [place] [address] EXAMINATION: Digital bilateral screening mammogram with 3-D [...] in either breast to suggest malignancy. Teja Etienne PA MAMMO Final Result * CT LUNG SCREENING [...] before 05/03/2025. Thank you for choosing the [facility] Screening Program. Referred By: TEJA ETIENNE Interpreted By: Nico Lassiter MD, 01/31/2025 1:06 PM Narrative 01/31/2025 1:12 PM CDT [facility] [address] [place] [id number] EXAM: LUNG SCREENING LOW-DOSE CT THORAX WITHOUT [...] Procedure Note Nico Lassiter MD - 01/31/2025 [facility] [address] [place] [address] EXAM: LUNG SCREENING LOW-DOSE CT THORAX WITHOUT [...] before 05/03/2025. Thank you for choosing the [facility]. Referred By: TEJA ETIENNE Interpreted By: Nico Lassiter MD, 01/31/2025 1:[address] CT Final Result * BONE [...] 8:50 AM Narrative 05/29/2024 8:51 AM CDT [facility] [address] [place] [address] EXAMINATION: BONE DENSITY/DEXA INDICATIONS: Other primary ovarian [...] Procedure Note Golden Kay MD - 05/29/2024 [facility] [address] [place] [address] EXAMINATION: BONE DENSITY/DEXA INDICATIONS: Other primary ovarian [...] Recently Relevant to Health Maintenance Insurance MEDICARE [facility] Advance Directives * Full Code (Latest Code Status on File) Date Activated Date Inactivated Comments 07/07/2019 2:21 PM 07/09/2019 2:39 PM Care Teams Animal Therapist Relationship Specialty Start Date End Date Teja Etienne PA [address] [place] [address] PCP - General PHYSICIAN AIRPORT ATTENDANT 01/23/25
--- OUTSIDE RECORDS SUMMARY | 2025-04-05 06:34 | XMS_ITS | Encounter Summary ---
Author Organization [facility] Address [facility] [place] [address] Care Team Providers Care Jack Machine Operator Name Role Phone Allen Florence MD Primary Care Provider [phone] Susie Loza PA-C Primary Care Provider [phone] Maria Dolores Roe Primary Care Provider [phone] Reason for Referral * Medication (Routine) - Closed Specialty Diagnoses / Procedures Referred By Contac t Referred To Contact INFUSION THERAPY / [facility] Infusion Therapy Diagnoses Osteoporosis Procedures ZOLEDRONIC ACID 1 MG [facility] [address] [place] [address] Phone: tel: [facility] [address] [place] [address] Phone: tel: Referral ID Status Reason Start Date Expiration Date V isits Requested Visits Authorized [id number] Closed Specialty Services 01/23/2021 02/22/2022 1 1 Encounter Details Date Type Department Care Team (Late st Contact Info) Description 01/23/2021 Therapy Plan [facility] [address] [place] [address] Maria Dolores Roe PA [address] [place] [address] Social History Tobacco Use Types Packs/Day Years [...] Assessment Author Status No 07/07/2019 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 Answer Date of Assessment Author Status No 07/07/2019 3:03 PM AIR SURVEILLANCE OPERATOR Activ e * Do you have [...] Info) Description 04/24/2025 10:00 AM [place] [address] [place] [address] Maria Dolores Roe PA [address] [place] [address] 12/04/2025 10:30 AM CDT [facility] [address] [place] [address] Yves Lilly MD [address] [address] Scheduled Referrals Name Type Priority Associated Diagnoses Orde r Schedule Ambulatory referral to Infusion Therapy Referral Routine Osteoporosis Ordered: 01/23/2021 documented as of this encounter Visit Diagnoses Diagnosis Osteoporosis- Primary Osteoporosis, unspecified documented in this encounter Care Teams Jack Machine Operator Relationship Specialty Start Date End Date Allen Florence MD [address] [place] [address] PCP - General INTERNAL MEDICINE 07/07/19 05/10/22 Susie Loza, EMERYC [address] [place] [address] PCP - General PHYSICIAN RUG CLEANER 05/11/22 01/22/25 Maria Dolores Roe PA [address] [place] [address] PCP - General PHYSICIAN RUG CLEANER 01/23/25 documented as of this encounter
[2025-04-05] MEDS: LACTATED RINGERS 1,000 ML 30 ML IV CONT ×2 (06:50→11:41)
--- NOTE | 2025-04-05 07:06 | WPDHPUPDATE1 ---
History and Physical Update Update Date/Time: 04/05/25 07:06 History and Physical has been reviewed, including an updated exam of the patient. There are NO changes in the patient's condition. Risks, benefits, and alternatives have been discussed and questions answered. Patient agrees to proceed with procedure. 69-year-old female with severe left L5-S1 foraminal stenosis and severe pain in the left L5 radiculopathy unrelieved with conservative management and is here for an elective left L5/S1 Transforaminal lumbar interbody fusion.
--- NOTE | 2025-04-05 07:25 | P.PNAN_ITS ---
Anes - Initial Pre Proc Eval Procedure: Operation Date: 04/05/25 07:30 Proposed Procedures p Stereotactic Computer Assisted Left L5-S1 Transforaminal Lumbar Interbody Fusion - Coleman Blackburn MD Date/Time: 04/05/25 07:25 Surgeon: Coleman Blackburn MD Pre Op Diagnosis: lumbar stenosis Patient Data Age: 69 Gender: F Height: 1.5 m Weight: 51.8 kg Last Vital Signs Temp 98.9 F 03/25/25 10:24 Pulse 104 H 03/25/25 10:24 Resp 16 03/25/25 10:24 BP 168/88 H 03/25/25 11:00 Pulse Ox 99 03/25/25 10:24 O2 Del Method Room Air 03/25/25 10:24 Allergies Allergy/AdvReac Type Severity Reaction Status Date / Time No Known Allergies Allergy Verified 04/05/25 07:15 Home Medications ?Medication ?Instructions ?Recorded ?Confirmed ?Type ascorbic acid (vitamin C) 1,000 mg 1 g PO DAILY 04/09/21 04/05/25 History tablet calcium carbonate (Calcium 600) 600 mg PO DAILY 04/09/21 04/05/25 History multivitamin,eg-fwyj-ibomrnkb 1 tablet PO DAILY 04/09/21 04/05/25 History losartan 25 mg tablet 25 mg PO DAILY 07/26/22 04/05/25 History blood sugar diagnostic (OneTouch #100 strips 07/29/23 03/29/25 Rx Ultra Test strips) aspirin 81 mg tablet,delayed 81 mg PO HS 09/26/23 04/05/25 History release (Adult Low Dose Aspirin) omega-3 fatty acids 1,000 mg PO DAILY 09/26/23 03/29/25 History vitamin B complex 1 tablet PO DAILY 03/26/24 04/05/25 History lancets 33 gauge #100 ea 05/21/24 03/29/25 Rx cholecalciferol (vitamin D3) 125 125 mcg PO DAILY 06/01/24 03/29/25 History mcg (5,000 unit) capsule magnesium 250 mg tablet 250 mg PO DAILY 06/01/24 04/05/25 History potassium 99 mg tablet 99 mg PO DAILY 06/01/24 04/05/25 History sennosides 8.6 mg tablet (senna) 8.6 mg PO BID PRN constipation #30 10/19/24 03/29/25 Rx tabs alendronate 70 mg tablet (Fosamax) 70 mg PO WEEKLY #12 tabs 11/19/24 04/05/25 Rx rosuvastatin 20 mg tablet 20 mg PO DAILY 12/26/24 04/05/25 History alprazolam 0.25 mg tablet 0.25 mg PO BID PRN Anxiety #60 tabs 02/04/25 03/29/25 Rx glimepiride 2 mg tablet 2 mg PO DAILY #90 tabs 03/08/25 04/05/25 Rx duloxetine 30 mg capsule,delayed 30 mg PO DAILY #90 caps 03/14/25 04/05/25 Rx release gabapentin 300 mg capsule See Rx Instructions .Route 03/15/25 04/05/25 Rx .COMPLEX #180 caps metformin 500 mg tablet,extended 1,000 mg (2 x 500 mg) PO BID #360 03/20/25 04/05/25 Rx release 24 hr tabs acetaminophen 500 mg tablet 1,000 mg PO Q6H PRN pain 03/25/25 03/29/25 History (Acetaminophen Pain Relief) ibuprofen 200 mg tablet (IBU-200) 400 mg PO Q6H PRN pain 03/25/25 03/29/25 History Laboratory Tests 04/05/25 06:53 POC Capillary Glucose 84 mg/dl (65-105) Patient hx anesthesia problems: none Family hx anesthesia problems: none Results Review: All pre-operative results and documents have been reviewed as part of the pre- operative evaluation. [facility] Past Medical History Medical History Aortic ectasia, thoracic Pulmonary nodule Former smoker Lumbar stenosis Lumbar foraminal stenosis Murmur, cardiac Carotid bruit Acute UTI Osteoporosis Essential (primary) hypertension (09/09/16) Anxiety disorder, unspecified Hyperlipidemia Diabetes Surgical History Surgical History History of laminectomy No pertinent past surgical history Family History Family History Mother Pancreatic cancer Father Sibling No problems noted. Social History Social History (Updated 03/29/25 @ 11:23 by Mahnaz Aguilar CMA) Years smoked: 30 Smoking status: Former smoker Tobacco type: cigarettes Second hand tobacco smoke exposure: Yes Smoking end date: 02/19/19 Alcohol intake: current Drinks per week: 2 Alcohol use details: per week Substance use: never Substance use type: does not use Do You Feel Safe in your Home?: Yes Lack of Transportation: No Lack of Food: Never True Current Housing: I Have Housing Concerned About Future Housing: No Difficulty Paying Gas/Electric Bills: No Difficulty Paying for Meds: No Currently Unemployed: No Education: High School Diploma/GED Difficulty w/ Childcare or Family Care: No Living arrangements: with family Additional living arrangements comments: [facility] 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 Informed Consent: The patient's anesthetic plan and its attendant risks and benefits were discussed with the patient/family/POA. Questions were solicited and answers provided to the satisfaction of the patient/family/POA.
[2025-04-05] MEDS: ceFAZolin 2 GM in SODIUM CHLORIDE 0.9% IV 50 ML 100 ML IVPB (07:30)
[2025-04-05] MEDS: BUPIVACAINE/EPINEPHRINE 0.5% 50 ML VIAL 30 ML INFILTRATE (09:16)
--- NOTE | 2025-04-05 11:24 | W.PM.PROC2 ---
Procedure Note - Detailed Date of Procedure 04/05/25 Pre-op Diagnosis lumbar stenosis Post-op Diagnosis Same Procedure Performed L5-S1 transforaminal lumbar interbody fusion Placement of pedicle screws bilaterally at L5 and S1 Placement of interbody device on the left side at L5-S1 Complete facetectomy at left L5-S1 Bilateral lumbar laminectomy at L5-S1 Arthrodesis between L5 and S1 Use of allograft and autograft Surgeon Coleman Blackburn MD Anesthesia General Findings Severe left L5-S1 foraminal stenosis Description of Procedure The patient was brought into the operating room turned over Anesthesia for intubation once this was complete the patient was positioned prone onto the open Malcolm table. All bony prominences were padded and the patient was positioned appropriately. Lateral fluoroscopy was brought in to confirm the L5-S1 level. A skin incision was marked. Patient was then prepped and draped in the usual sterile fashion. Final time-out was performed indicating correct patient procedure and site. I then used a scalpel to open the skin down to the level of the fascia along my pre planned incision. I then used Bovie electrocautery to open the in fascia and perform subperiosteal dissection off the spinous process lamina of L5 and S1. I then went out laterally and removed all soft tissue off of the transverse processes bilaterally. At this point I placed retractors and set up the 7D navigation system and tested it for accuracy. I then attempted to line up the L5 pedicle screw with the navigation however it seemed off so I therefore brought in lateral fluoroscopy to confirm. The the navigation was indeed off and this was reset and accuracy was again tested. Using the navigation as well as lateral fluoroscopy I used a pedicle finer to create a tract within the pedicle, this was then tapped, a ball-tip probe was used to confirm no breaches, and I then placed 6.5 x 40 screws bilaterally at L5 and S1. Lateral fluoroscopy and AP fluoroscopy was used to confirm our correct placement of the screws. This point the fluoroscopy unit was removed as well as the 79 the cage was removed. I then moved onto the decompression portion of the s surgery. I performed a bilateral trough laminectomy using high-speed merlyn and the bone was removed. I then performed a facetectomy using an out to in procedure to remove the facet joint on the left side. Using a Neosho probe I was able to clearly identify the foramen. I then used Rehana Grace to widen the form foramen to create a foraminotomy and completely open the left-sided L5-S1 foramen. The nerve appeared free. At this point I used a nerve root retractor to retract the thecal sac used an 11 blade to open the L5-S1 disc space. This was then shaved with a series of Aysha and curettes. I then introduced a trial 10 mm in size and brought in lateral fluoroscopy to confirm good placement and size. This appeared to be the correct size. There was no mobility in the trial. I then opened 10 mm x 26 mm length lordotic titanium CoreLink cage. This was packed with bone. I then packed the disc space with bone as well as magnet os and push this over to the right side of the disc space. The cage was then placed under fluoroscopic guidance and malleted into position. Again this was very solid feeling. The hand inserter operator was removed hemostasis was obtained. I then moved on to the arthrodesis portion of surgery where I decorticate the transverse processes bilaterally at L5 and S1. This was then supplemented with magnesium os as well as autograft. The heads were placed onto the set screws and rods were placed into the tulips and final tightened bilaterally. Final x-rays were obtained to indicate correct position of the implants. The wound was again irrigated. Subcutaneous drain was placed and tunneled out. The wound was then closed in layers with Steri-Strips on the skin. There were no overt complications during the procedure. Estimated Blood Loss 350 Drains Yes Complications No immediate complications Condition Stable Disposition PACU [facility] Billing Surgery - Charge Forward: Surgery Billing
--- NOTE | 2025-04-05 13:50 | ADMGEN ---
This patient, Maribeth Tavarez, was admitted to Medical Room 244-. Patient/family oriented to hospital policies and general routines including ID bracelet, bed and alarms, visiting hours, pain management, procedures, bathroom and other care routines, personal items, smoking policy, room service/diet, and visiting hours. Information on how to activate the Rapid Response Team has been discussed. Patient/Family are encouraged to report perceived risks to care and to ask questions if they do not understand what they are told or what they should do.
[2025-04-05] MEDS: MORPHINE SULFATE (*CRX) 2 MG/ML INJ IV PUSH (13:57)
[2025-04-05] MEDS: CYCLOBENZAPRINE HCL 10 MG TABLET PO (13:59)
[2025-04-05] MEDS: ALPRAZolam (*CRX) 0.25 MG TABLET PO (14:49)
[2025-04-05] MEDS: ceFAZolin 1 GM in SODIUM CHLORIDE 0.9% IV 50 ML 100 ML IVPB ×2 (16:41→23:59)
[2025-04-05] MEDS: GABAPENTIN 300 MG CAPSULE 600 MG PO (16:42)
[2025-04-05] MEDS: INSULIN ASPART (*BKC) 100 UNITS/ML SUB-Q ×2 (17:06→21:18)
[2025-04-05] MEDS: HYDROcodone/acetaminophen (*CRX) 10-325 MG TABLET 1 TAB PO (19:51)
[2025-04-05] MEDS: DOCUSATE SODIUM 100 MG CAPSULE PO (19:52)
[2025-04-05] MEDS: MINERAL OIL/WHITE PETROLATUM OINTMENT 1 APPLIC EACH EYE (21:17)
[2025-04-06 00:27] VITALS: BP 116/57; PULSE 90; RESP 18; TEMP 36.4; O2SAT 97
[2025-04-06] MEDS: HYDROcodone/acetaminophen (*CRX) 10-325 MG TABLET 1 TAB PO ×3 (01:09→12:20)
[2025-04-06 04:27] VITALS: BP 111/59; PULSE 95; RESP 18; TEMP 36.6; O2SAT 99
[2025-04-06] MEDS: ASCORBIC ACID 500 MG TABLET 1000 MG PO (08:17)
[2025-04-06] MEDS: ceFAZolin 1 GM in SODIUM CHLORIDE 0.9% IV 50 ML 100 ML IVPB (08:17)
[2025-04-06] MEDS: DOCUSATE SODIUM 100 MG CAPSULE PO (08:18)
[2025-04-06] MEDS: MAGNESIUM OXIDE 200 MG TABLET PO (08:18)
[2025-04-06] MEDS: GABAPENTIN 300 MG CAPSULE 600 MG PO ×2 (08:18→12:20)
[2025-04-06] MEDS: CALCIUM CARBONATE (OSCAL) 500 MG TABLET PO (08:18)
[2025-04-06] MEDS: ROSUVASTATIN 20 MG TABLET PO (08:18)
[2025-04-06] MEDS: VITAMIN B COMPLEX CAPSULE 1 CAP PO (08:18)
[2025-04-06] MEDS: THERAPEUTIC MULTIVITAMINS/MINERALS TAB (*BKC) 1 TABLET PO (08:18)
[2025-04-06 08:42] VITALS: BP 130/65; PULSE 89; RESP 18; TEMP 36.3; O2SAT 99
[2025-04-06] MEDS: CHOLECALCIFEROL (VITAMIN D3) 125 MCG (5,000 UNITS) TABLET PO (08:45)
[2025-04-06] MEDS: MORPHINE SULFATE (*CRX) 2 MG/ML INJ IV PUSH (08:46)
[2025-04-06] MEDS: LOSARTAN POTASSIUM 25 MG TABLET PO (12:20)
[2025-04-06] MEDS: MINERAL OIL/WHITE PETROLATUM OINTMENT 1 APPLIC EACH EYE (12:21)
== END 2025-04-06 12:40 | disposition home or self-care (01) ==
LOC: ANHSURGERY 09:35 → ANH2MED 13:47
PROVIDERS: PCP Physician Assistant Medical; Visit Provider Neurological Surgery
PROC: (CPT 22612; principal; 2025-04-05 07:30)
DX: M48.061 Spinal stenosis, lumbar region without neurogenic claudication (principal); S32.059A Unspecified fracture of fifth lumbar vertebra, initial encounter for closed fracture; X58.XXXA Exposure to other specified factors, initial encounter; I10 Essential (primary) hypertension; E78.5 Hyperlipidemia, unspecified; E11.9 Type 2 diabetes mellitus without complications; M81.0 Age-related osteoporosis without current pathological fracture; F41.9 Anxiety disorder, unspecified; I77.810 Thoracic aortic ectasia; R01.1 Cardiac murmur, unspecified; Z79.82 Long term (current) use of aspirin; Z79.83 Long term (current) use of bisphosphonates; Z79.84 Long term (current) use of oral hypoglycemic drugs; Z79.1 Long term (current) use of non-steroidal anti-inflammatories (NSAID); Z98.1 Arthrodesis status; Z87.891 Personal history of nicotine dependence; Z80.0 Family history of malignant neoplasm of digestive organs
CPT/HCPCS: 63047; 22630; 22853; 20936; 82948; 97161; 97166; 99199; J0690; A9270; C1713; J1100; J1171; J1815; J2003; J2270; J2371; J2405; J2704; J3010; J7030; J7120